=== PATIENT | female | born 1935 | race Caucasian/White ===

== ENCOUNTER 2017-12-22 10:18 | Emergency (ER) | payer OTHER, MEDICARE ==
[2017-12-22] MEDS ORDERED: TRAMADOL HCL 50 MG TAB ONE (11:20)
--- NOTE | 2017-12-22 12:40 | RAD REPORT ---
EXAM DESCRIPTION: RAD - Knee Right 3 View - 12/22/2017 12:12 pm CLINICAL HISTORY: Knee pain and swelling. COMPARISON: None. FINDINGS: Total knee arthroplasty is noted. No fracture seen. No joint effusion suspected. IMPRESSION: No acute findings seen.
--- NOTE | 2017-12-22 12:50 | ER ---
Nurse's Notes [facility] Name: Traci Bennett Age: 82 yrs Sex: Female : 1935 Arrival Date: 12/22/2017 Time: 10:21 Bed 8 Private MD: Diagnosis: Pain in right knee Presentation: 12/22 10:17 Presenting complaint: EMS states: right knee pain. Pt states "it just feels funny like sv its pulling or drawing." BP 148/83 HR 89. Transition of care: patient was not received from another setting of care. Onset of symptoms was December 13, 2017. 10:17 Method Of Arrival: EMS: [facility] sv 10:17 Acuity: PRICILA 4 sv 10:18 Initial Sepsis Screen: Does the patient meet any 2 criteria? No. Patient's initial sv sepsis screen is negative. Does the patient have a suspected source of infection? No. Patient's initial sepsis screen is negative. Care prior to arrival: Glucose check: 148. Triage Assessment: 10:20 General: Appears in no apparent distress. comfortable, Behavior is calm, cooperative, sv appropriate for age. Pain: Denies pain. EENT: No signs and/or symptoms were reported regarding the EENT system. Neuro: Level of Consciousness is awake, alert, obeys commands, Oriented to person, place, time, situation, Moves all extremities. Full function. Cardiovascular: Patient's skin is warm and dry. Respiratory: Respiratory effort is even, unlabored, Respiratory pattern is regular, symmetrical. Derm: Skin is pink, warm \\T\\ dry. Musculoskeletal: Range of motion: intact in all extremities. Historical: - Allergies: 10:27 Iodine; sv 10:27 Lamisil; sv - Home Meds: 10:27 [place] Thyroid 60 mg Oral tab [Active]; omeprazole 20 mg Oral cpDR 1 cap once daily sv [Active]; Novolin N 100 unit/mL Sub-Q susp 20 units before breakfast and 10 units before supper [Active]; metformin 500 mg Oral tab 1 tab 2 times per day [Active]; amlodipine 2.5 mg tab 1 tab once daily [Active]; carvedilol 12.5 mg Oral tab 1 tab 2 times per day [Active]; gabapentin 300 mg Oral cap twice a day [Active]; Novolin R Sub-Q 5 units before breakfast and 10 units before supper [Active]; pravastatin 20 mg Oral tab 1 tab once daily [Active]; losartan 100 mg Oral tab 1 tab once daily [Active]; Magnesium Oxide Oral [Active]; Osteo Bi-Flex oral oral [Active]; tumeric [Active]; B-12 [Active]; lutein oral oral [Active]; D-3 [Active]; Zyrtec Oral [Active]; Probiotic oral oral [Active]; Meclizine Oral [Active]; - PMHx: 10:27 Diabetes - IDDM; GERD; High Cholesterol; Hypertension; Hypothyroidism; ovarian cancer; sv - PSHx: 10:27 Left knee replacement; Hysterectomy; Appendectomy; Cholecystectomy; Cancerous Polyp; sv 10:29 Tonsillectomy; Adenoids; prolapsed bladder repair; sv - Immunization history:: Adult Immunizations up to date. - Social history:: Smoking status: Patient/guardian denies using tobacco, Patient/guardian denies using alcohol. - Ebola Screening: : Patient negative for fever greater than or equal to 101.5 degrees Fahrenheit, and additional compatible Ebola Virus Disease symptoms Patient denies exposure to infectious person Patient denies travel to an Ebola-affected area in the 21 days before illness onset No symptoms or risks identified at this time. Screenin:30 Abuse screen: Denies threats or abuse. Denies injuries from another. Nutritional sv screening: No deficits noted. Tuberculosis screening: No symptoms or risk factors identified. Fall Risk None identified. Assessment: 10:30 Reassessment: See triage assessment. sv 12:00 Reassessment: Patient appears in no apparent distress at this time. No changes from sv previously documented assessment. Patient and/or family updated on plan of care and expected duration. Pain level reassessed. Patient is alert, oriented x 3, equal unlabored respirations, skin warm/dry/pink. 13:05 Reassessment: Patient appears in no apparent distress at this time. Patient and/or sv family updated on plan of care and expected duration. Pain level reassessed. Patient is alert, oriented x 3, equal unlabored respirations, skin warm/dry/pink. Pt ambulated to bathroom with myself, no difficulties noted. Patient states feeling better. 13:20 Reassessment: Pt calling for her ride home at this time. sv Vital Signs: 10:29 BP 162 / 96; Pulse 78; Resp 18; Temp 98.7(TE); Pulse Ox 96% on R/A; Weight 68.04 kg sv (R); Height 5 ft. 7 in. (170.18 cm) (R); Pain 0/10; 11:58 BP 192 / 68; Pulse 64; Resp 18; Pulse Ox 99% ; sv 12:25 BP 186 / 88; Pulse 65; Resp 18; Pulse Ox 100% ; sv 13:20 BP 186 / 65; Pulse 66; Resp 18; Pulse Ox 99% ; sv 10:29 Body Mass Index 23.49 (68.04 kg, 170.18 cm) sv ED Course: 10:21 Patient arrived in ED. sv 10:21 Cari Allen RN is Primary Nurse. sv 10:23 Triage completed. sv 10:30 Arm band placed on right wrist. sv 10:30 Patient has correct armband on for positive identification. Bed in low position. Call sv light in reach. Side rails up X2. Pulse ox on. NIBP on. Door closed. Head of bed elevated. 10:33 Jean Marie Terrazas NP is PHCP. pm1 10:33 Anderson Collins MD is Attending Physician. pm1 11:43 Knee Right 3 View XRAY In Process Unspecified. EDMS 11:44 X-ray completed. Portable x-ray completed in exam room. Patient tolerated procedure kp1 well. 12:00 Awaiting radiology results. Awaiting re-evaluation by ER provider. sv 12:49 Frankie Garcia MD is Referral Physician. pm1 13:19 No provider procedures requiring assistance completed. Patient did not have IV access sv during this emergency room visit. Administered Medications: 11:57 Drug: traMADol 50 mg Route: PO; sv 12:30 Follow up: Response: No adverse reaction sv Outcome: 12:50 Discharge ordered by . pm1 13:19 Discharged to home via wheelchair, with family. sv 13:19 Condition: stable 13:19 Discharge instructions given to patient, Instructed on discharge instructions, follow up and referral plans. no drinking with medication, no driving heavy equipment, medication usage, Demonstrated understanding of instructions, follow-up care, medications, Prescriptions given X 1. 13:24 Patient left the ED. sv Signatures: Dispatcher [employer] EDAK Cari Allen RN RN Jean Marie Terrazas NP CAGE TENDER pm1 Ligia Damian kp1 Corrections: (The following items were deleted from the chart) 10:17 Presenting complaint: EMS states: right knee pain. Pt states "it just feels funny sv like its pulling or drawing." sv 10:18 Care prior to arrival: None. sv sv
--- NOTE | 2017-12-22 12:51 | EDPHYS ---
Physician Documentation [facility] Name: Traci Bennett Age: 82 yrs Sex: Female : 1935 Arrival Date: 12/22/2017 Time: 10:21 Bed 8 Private MD: ED Physician Anderson Collisn HPI: 12/22 12:00 This 82 yrs old Female presents to ER via EMS with complaints of Knee Pain. pm1 12:00 The patient presents with pain. The complaints affect the right knee. Context: The pm1 problem was sustained at home, resulted from an unknown cause, the patient can fully bear weight, the patient is able to ambulate, Problem is a result from a previous injury: prior right knee replacement in 2000. No trauma. Onset: The symptoms/episode began/occurred Worse today but chronic pain treated with tylenol. Modifying factors: The symptoms are alleviated by OTC meds, the symptoms are aggravated by weight bearing. Associated signs and symptoms: Pertinent negatives fever, nausea, vomiting. Severity of symptoms: in the emergency department the symptoms have improved. The patient has experienced similar episodes in the past, chronically. Historical: - Allergies: 10: Iodine; sv 10:27 Lamisil; sv - Home Meds: 10:27 [place] Thyroid 60 mg Oral tab [Active]; omeprazole 20 mg Oral cpDR 1 cap once daily sv [Active]; Novolin N 100 unit/mL Sub-Q susp 20 units before breakfast and 10 units before supper [Active]; metformin 500 mg Oral tab 1 tab 2 times per day [Active]; amlodipine 2.5 mg tab 1 tab once daily [Active]; carvedilol 12.5 mg Oral tab 1 tab 2 times per day [Active]; gabapentin 300 mg Oral cap twice a day [Active]; Novolin R Sub-Q 5 units before breakfast and 10 units before supper [Active]; pravastatin 20 mg Oral tab 1 tab once daily [Active]; losartan 100 mg Oral tab 1 tab once daily [Active]; Magnesium Oxide Oral [Active]; Osteo Bi-Flex oral oral [Active]; tumeric [Active]; B-12 [Active]; lutein oral oral [Active]; D-3 [Active]; Zyrtec Oral [Active]; Probiotic oral oral [Active]; Meclizine Oral [Active]; - PMHx: 10:27 Diabetes - IDDM; GERD; High Cholesterol; Hypertension; Hypothyroidism; ovarian cancer; sv - PSHx: 10:27 Left knee replacement; Hysterectomy; Appendectomy; Cholecystectomy; Cancerous Polyp; sv 10:29 Tonsillectomy; Adenoids; prolapsed bladder repair; sv - Immunization history:: Adult Immunizations up to date. - Social history:: Smoking status: Patient/guardian denies using tobacco, Patient/guardian denies using alcohol. - Ebola Screening: : Patient negative for fever greater than or equal to 101.5 degrees Fahrenheit, and additional compatible Ebola Virus Disease symptoms Patient denies exposure to infectious person Patient denies travel to an Ebola-affected area in the 21 days before illness onset No symptoms or risks identified at this time. ROS: 12:00 Constitutional: Negative for fever, chills, and weight loss, Eyes: Negative for injury, pm1 pain, redness, and discharge, ENT: Negative for injury, pain, and discharge, Neck: Negative for injury, pain, and swelling, Cardiovascular: Negative for chest pain, palpitations, and edema, Respiratory: Negative for shortness of breath, cough, wheezing, and pleuritic chest pain, Abdomen/GI: Negative for abdominal pain, nausea, vomiting, diarrhea, and constipation, Back: Negative for injury and pain. 12:00 Skin: Negative for injury, rash, and discoloration, Neuro: Negative for headache, weakness, numbness, tingling, and seizure. 12:00 MS/extremity: Positive for pain, of the right knee, Negative for decreased range of motion, deformity. Exam: 12:00 Constitutional: This is a well developed, well nourished patient who is awake, alert, pm1 and in no acute distress. Head/Face: Normocephalic, atraumatic. Eyes: Pupils equal round and reactive to light, extra-ocular motions intact. Lids and lashes normal. Conjunctiva and sclera are non-icteric and not injected. Cornea within normal limits. Periorbital areas with no swelling, redness, or edema. ENT: Nares patent. No nasal discharge, no septal abnormalities noted. Tympanic membranes are normal and external auditory canals are clear. Oropharynx with no redness, swelling, or masses, exudates, or evidence of obstruction, uvula midline. Mucous membranes moist. Neck: Trachea midline, no thyromegaly or masses palpated, and no cervical lymphadenopathy. Supple, full range of motion without nuchal rigidity, or vertebral point tenderness. No Meningismus. Chest/axilla: Normal chest wall appearance and motion. Nontender with no deformity. No lesions are appreciated. Cardiovascular: Regular rate and rhythm with a normal S1 and S2. No gallops, murmurs, or rubs. Normal PMI, no JVD. No pulse deficits. Respiratory: Lungs have equal breath sounds bilaterally, clear to auscultation and percussion. No rales, rhonchi or wheezes noted. No increased work of breathing, no retractions or nasal flaring. Abdomen/GI: Soft, non-tender, with normal bowel sounds. No distension or tympany. No guarding or rebound. No evidence of tenderness throughout. Back: No spinal tenderness. No costovertebral tenderness. Full range of motion. Skin: Warm, dry with normal turgor. Normal color with no rashes, no lesions, and no evidence of cellulitis. 12:00 Musculoskeletal/extremity: Extremities: grossly normal except: noted in the right knee: pain, ROM: full active range of motion, in the right knee, full passive range of motion, in the right knee, Circulation is intact in all extremities. Sensation intact. Vital Signs: 10:29 BP 162 / 96; Pulse 78; Resp 18; Temp 98.7(TE); Pulse Ox 96% on R/A; Weight 68.04 kg sv (R); Height 5 ft. 7 in. (170.18 cm) (R); Pain 0/10; 11:58 BP 192 / 68; Pulse 64; Resp 18; Pulse Ox 99% ; sv 12:25 BP 186 / 88; Pulse 65; Resp 18; Pulse Ox 100% ; sv 13:20 BP 186 / 65; Pulse 66; Resp 18; Pulse Ox 99% ; sv 10:29 Body Mass Index 23.49 (68.04 kg, 170.18 cm) sv MDM: 10:35 Patient medically screened. pm1 12:49 Data reviewed: vital signs. Data interpreted: Pulse oximetry: on room air is 100 %. pm1 Interpretation: normal. Counseling: I had a detailed discussion with the patient and/or guardian regarding: the historical points, exam findings, and any diagnostic results supporting the discharge/admit diagnosis, the need for outpatient follow up, for definitive care, a orthopedic surgeon, to return to the emergency department if symptoms worsen or persist or if there are any questions or concerns that arise at home. 12/22 11:10 Order name: Knee Right 3 View XRAY; Complete Time: 12:49 pm1 Administered Medications: 11:57 Drug: traMADol 50 mg Route: PO; sv 12:30 Follow up: Response: No adverse reaction sv Disposition: 12/23 09:24 Co-signature as Attending Physician, Anderson Collins MD I agree with the assessment and monika plan of care. Disposition: 12/22/17 12:50 Discharged to Home. Impression: Pain in right knee. - Condition is Stable. - Discharge Instructions: Arthralgia, Knee Pain. - Prescriptions for Tramadol 50 mg Oral Tablet - take 1 tablet by ORAL route every 8 hours as needed; 12 tablet. - Medication Reconciliation Form, Thank You Letter, Prescription Opioid Use form. - Follow up: Emergency Department; When: As needed; Reason: Worsening of condition. Follow up: Frankie Garcia MD; When: 2 - 3 days; Reason: Recheck today's complaints, Continuance of care, Re-evaluation by your physician. - Problem is new. - Symptoms have improved. Signatures: Dispatcher [employer] Cari Mcnamara, Anderson Dubose RN, MD MD cha Marinas, Patrick, CLINICAL SUPPORT NURSE CLINICAL SUPPORT NURSE pm1
[2017-12-22 13:29] VITALS: TEMP 98.7
[2017-12-22 13:33] VITALS: BP 186/65; O2SAT 99
== END 2017-12-22 13:24 | disposition home or self-care (01) ==
LOC: ER 10:18
DX: M25.561 Pain in right knee (principal); E11.9 Type 2 diabetes mellitus without complications; K21.9 Gastro-esophageal reflux disease without esophagitis; E03.9 Hypothyroidism, unspecified
CPT/HCPCS: 99284

== ENCOUNTER 2017-12-27 09:24 | Emergency (ER) | payer OTHER, MEDICARE ==
[2017-12-27] MEDS ORDERED: D50W 25 GM/50 ML SYRINGE IV ONE (09:39)
--- NOTE | 2017-12-27 10:43 | ER ---
Nurse's Notes [facility] Name: Traci Bennett Age: 82 yrs Sex: Female : 1935 Arrival Date: 12/27/2017 Time: 09:25 Bed 7 Private MD: Marcello Mo V Diagnosis: Hypoglycemia, unspecified Presentation: 12/27 09:31 Presenting complaint: EMS states: pt was found at the intersection [address], pt was confused, FSBG was 49 on the scene, attempted two IV starts, had to administer 24 grams of PO glucose per EMS a repeat FSBG 71, VSS per EMS. Transition of care: patient was not received from another setting of care. Onset of symptoms was December 27, 2017. Initial Sepsis Screen: Does the patient meet any 2 criteria? No. Patient's initial sepsis screen is negative. Does the patient have a suspected source of infection? No. Patient's initial sepsis screen is negative. Care prior to arrival: Medication(s) given: 24 gm Oral Glucose. 09:31 Method Of Arrival: EMS: [facility] 09:31 Acuity: PRICILA 3 sg Historical: - Allergies: 09:27 Iodine; sg 09:27 Lamisil; sg - Home Meds: 09:35 carvedilol 12.5 mg Oral tab 1 tab 2 times per day [Active]; Novolin N 100 unit/mL Sub-Q ae1 susp 20 units before breakfast and 10 units before supper [Active]; 10:17 amlodipine 2.5 mg tab 1 tab once daily [Active]; [place] Thyroid 60 mg Oral tab ae1 [Active]; B-12 [Active]; D-3 [Active]; gabapentin 300 mg Oral cap twice a day [Active]; losartan 100 mg Oral tab 1 tab once daily [Active]; lutein Oral [Active]; Magnesium Oxide Oral [Active]; Meclizine Oral [Active]; metformin 500 mg Oral tab 1 tab 2 times per day [Active]; Novolin R Sub-Q 5 units before breakfast and 10 units before supper [Active]; omeprazole 20 mg Oral cpDR 1 cap once daily [Active]; Osteo Bi-Flex Oral [Active]; pravastatin 20 mg Oral tab 1 tab once daily [Active]; Probiotic Oral [Active]; tumeric [Active]; Zyrtec Oral [Active]; - PMHx: 09:27 Diabetes - IDDM; GERD; High Cholesterol; Hypertension; Hypothyroidism; ovarian cancer; sg - PSHx: 09:27 Left knee replacement; Hysterectomy; Appendectomy; Cholecystectomy; Cancerous Polyp; sg Tonsillectomy; Adenoids; prolapsed bladder repair; - Immunization history:: Adult Immunizations up to date. - Social history:: Smoking status: Patient/guardian denies using tobacco. Screenin:35 Abuse screen: Denies threats or abuse. Nutritional screening: No deficits noted. ae1 Tuberculosis screening: No symptoms or risk factors identified. Assessment: 09:31 General: Appears in no apparent distress. comfortable, well groomed, Behavior is ae1 cooperative, drowsy, quiet. Pain: Denies pain. Neuro: Level of Consciousness is awake, obeys commands, lethargic, Oriented to person, place, situation. Cardiovascular: Patient's skin is warm and dry. Respiratory: Airway is patent Respiratory effort is even, unlabored, Respiratory pattern is regular, symmetrical, Breath sounds are clear bilaterally. GI: No signs and/or symptoms were reported involving the gastrointestinal system. : No signs and/or symptoms were reported regarding the genitourinary system. EENT: No signs and/or symptoms were reported regarding the EENT system. wears glasses. . Derm: Skin is pale. Musculoskeletal: No signs and/or symptoms reported regarding the musculoskeletal system. 09:38 Reassessment: FSBG of 50, orders received to administer 1/2 amp of D50, a tray has been sg ordered. 10:43 Reassessment: Patient appears in no apparent distress at this time. No changes from la1 previously documented assessment. Patient and/or family updated on plan of care and expected duration. Pain level reassessed. Patient is alert, oriented x 3, equal unlabored respirations, skin warm/dry/pink. Patient states feeling better. Vital Signs: 09:28 BP 124 / 52; Pulse 67 MON; Resp 19 S; Pulse Ox 95% on R/A; Pain 0/10; sg 09:30 Weight 68.04 kg (R); Height 5 ft. 7 in. (170.18 cm) (R); sg 09:45 Temp 97.8(O); ae1 10:43 BP 128 / 53; Pulse 71; Resp 19; Pulse Ox 100% on R/A; la1 09:30 Body Mass Index 23.49 (68.04 kg, 170.18 cm) ED Course: 09:25 Patient arrived in ED. sg 09:25 Marcello Mo MD is Private Physician. sg 09:27 Dat Argueta PA is PHCP. jr8 09:27 Arsenio Alcantar MD is Attending Physician. jr8 09:29 Arm band placed on. sg 09:31 Uri Mantilla, RN is Primary Nurse. ae1 09:33 Triage completed. sg 09:34 Bed in low position. Call light in reach. Side rails up X2. black top machine operator on. Pulse ae1 ox on. NIBP on. Warm blanket given. 09:55 Initial lab(s) drawn, by me. Inserted saline lock: 22 gauge in right antecubital area, jb1 using aseptic technique. Blood collected. 10:42 Marcello Mo MD is Referral Physician. jr8 11:02 No provider procedures requiring assistance completed. IV discontinued, intact, la1 bleeding controlled, No redness/swelling at site. Pressure dressing applied. Administered Medications: 09:40 Drug: D50W 25 ml Route: IVP; Site: right antecubital; ae1 10:43 Follow up: Response: Blood sugar is elevated la1 Point of Care Testing: Blood Glucose: 10:42 Blood Glucose: 160 mg/dL; la1 Ranges: Outcome: 10:42 Discharge ordered by . jr8 11:03 Discharged to home via wheelchair. la1 11:03 Condition: stable 11:03 Discharge instructions given to patient, Instructed on discharge instructions, follow up and referral plans. medication usage, Demonstrated understanding of instructions, follow-up care. 11:13 Patient left the ED. la1 Signatures: Otis Mcadams jb1 Romain Mcneil RN RN Dat Argueta PA PA jr8 Rajeev Andrade RN RN la1 Uri Mantilla, RAUL RN ae1
--- NOTE | 2017-12-27 10:43 | EDPHYS ---
Physician Documentation [facility] Name: Traci Bennett Age: 82 yrs Sex: Female : 1935 Arrival Date: 12/27/2017 Time: 09:25 Bed 7 Private MD: Marcello Mo V ED Physician Arsenio Alcantar HPI: 12/27 09:45 This 82 yrs old Female presents to ER via EMS with complaints of Low Blood jr8 Sugar. 09:45 The patient presents with decreased mental status, disorientation. Onset: The jr8 symptoms/episode began/occurred acutely, today. Possible causes: low blood sugar, the patient uses insulin. Associated signs and symptoms: The patient has no apparent associated signs or symptoms. Current symptoms: In the emergency department the patient's symptoms have improved, moderately. Patient's baseline: Neuro: alert and fully oriented, Motor: no deficits, Ambulation: walks without assistance, Speech: normal. It is unknown whether or not the patient has had similar symptoms in the past. The patient has not recently seen a physician. Patient stated that she had to have MRI this morning and had to fast. After MRI was feeling fatigued like her sugar was low. Was trying to make it home but couldn't. [place]. Administered oral glucose and was brought to ED. Historical: - Allergies: 09: Iodine; sg 09:27 Lamisil; sg - Home Meds: 09:35 carvedilol 12.5 mg Oral tab 1 tab 2 times per day [Active]; Novolin N 100 unit/mL Sub-Q ae1 susp 20 units before breakfast and 10 units before supper [Active]; 10:17 amlodipine 2.5 mg tab 1 tab once daily [Active]; [place] Thyroid 60 mg Oral tab ae1 [Active]; B-12 [Active]; D-3 [Active]; gabapentin 300 mg Oral cap twice a day [Active]; losartan 100 mg Oral tab 1 tab once daily [Active]; lutein Oral [Active]; Magnesium Oxide Oral [Active]; Meclizine Oral [Active]; metformin 500 mg Oral tab 1 tab 2 times per day [Active]; Novolin R Sub-Q 5 units before breakfast and 10 units before supper [Active]; omeprazole 20 mg Oral cpDR 1 cap once daily [Active]; Osteo Bi-Flex Oral [Active]; pravastatin 20 mg Oral tab 1 tab once daily [Active]; Probiotic Oral [Active]; tumeric [Active]; Zyrtec Oral [Active]; - PMHx: 09:27 Diabetes - IDDM; GERD; High Cholesterol; Hypertension; Hypothyroidism; ovarian cancer; sg - PSHx: 09:27 Left knee replacement; Hysterectomy; Appendectomy; Cholecystectomy; Cancerous Polyp; sg Tonsillectomy; Adenoids; prolapsed bladder repair; - Immunization history:: Adult Immunizations up to date. - Social history:: Smoking status: Patient/guardian denies using tobacco. ROS: 09:45 Eyes: Negative for injury, pain, redness, and discharge, ENT: Negative for injury, jr8 pain, and discharge, Neck: Negative for injury, pain, and swelling, Cardiovascular: Negative for chest pain, palpitations, and edema, Respiratory: Negative for shortness of breath, cough, wheezing, and pleuritic chest pain, Abdomen/GI: Negative for abdominal pain, nausea, vomiting, diarrhea, and constipation, Back: Negative for injury and pain, MS/Extremity: Negative for injury and deformity, Skin: Negative for injury, rash, and discoloration. 09:45 Neuro: Positive for altered mental status. Exam: 09:45 Head/Face: Normocephalic, atraumatic. Eyes: Pupils equal round and reactive to light, jr8 extra-ocular motions intact. Lids and lashes normal. Conjunctiva and sclera are non-icteric and not injected. Cornea within normal limits. Periorbital areas with no swelling, redness, or edema. ENT: Nares patent. No nasal discharge, no septal abnormalities noted. Tympanic membranes are normal and external auditory canals are clear. Oropharynx with no redness, swelling, or masses, exudates, or evidence of obstruction, uvula midline. Mucous membranes moist. Neck: Trachea midline, no thyromegaly or masses palpated, and no cervical lymphadenopathy. Supple, full range of motion without nuchal rigidity, or vertebral point tenderness. No Meningismus. Chest/axilla: Normal chest wall appearance and motion. Nontender with no deformity. No lesions are appreciated. Cardiovascular: Regular rate and rhythm with a normal S1 and S2. No gallops, murmurs, or rubs. Normal PMI, no JVD. No pulse deficits. Respiratory: Lungs have equal breath sounds bilaterally, clear to auscultation and percussion. No rales, rhonchi or wheezes noted. No increased work of breathing, no retractions or nasal flaring. Abdomen/GI: Soft, non-tender, with normal bowel sounds. No distension or tympany. No guarding or rebound. No evidence of tenderness throughout. Back: No spinal tenderness. No costovertebral tenderness. Full range of motion. Skin: Warm, dry with normal turgor. Normal color with no rashes, no lesions, and no evidence of cellulitis. MS/ Extremity: Pulses equal, no cyanosis. Neurovascular intact. Full, normal range of motion. Neuro: Awake and alert, GCS 15, oriented to person, place, time, and situation. Cranial nerves II-XII grossly intact. Motor strength 5/5 in all extremities. Sensory grossly intact. Cerebellar exam normal. Normal gait. Vital Signs: 09:28 BP 124 / 52; Pulse 67 MON; Resp 19 S; Pulse Ox 95% on R/A; Pain 0/10; sg 09:30 Weight 68.04 kg (R); Height 5 ft. 7 in. (170.18 cm) (R); sg 09:45 Temp 97.8(O); ae1 10:43 BP 128 / 53; Pulse 71; Resp 19; Pulse Ox 100% on R/A; la1 09:30 Body Mass Index 23.49 (68.04 kg, 170.18 cm) sg MDM: 09:27 Patient medically screened. [facility] 10:42 Data reviewed: vital signs, nurses notes, and as a result, I will discharge patient. [facility] Data interpreted: Pulse oximetry: on room air is 95 %. Interpretation: normal. Counseling: I had a detailed discussion with the patient and/or guardian regarding: the historical points, exam findings, and any diagnostic results supporting the discharge/admit diagnosis, the need for outpatient follow up, a family practitioner, to return to the emergency department if symptoms worsen or persist or if there are any questions or concerns that arise at home. Response to treatment: the patient's symptoms have resolved after treatment. 12/27 09:41 Order name: Diet Regular; Complete Time: :41 sg Administered Medications: 09:40 Drug: D50W 25 ml Route: IVP; Site: right antecubital; ae1 10:43 Follow up: Response: Blood sugar is elevated la1 Point of Care Testing: Blood Glucose: 10:42 Blood Glucose: 160 mg/dL; la1 Ranges: Critical Glucose Levels:Adult <50 mg/dl or >400 mg/dl <40 mg/dl or >180 mg/dl Disposition: 17:20 Co-signature as Attending Physician, Arsenio Alcantar MD I agree with the assessment and kdr plan of care. Disposition: 12/27/17 10:42 Discharged to Home. Impression: Hypoglycemia, unspecified. - Condition is Stable. - Discharge Instructions: Hypoglycemia, Blood Glucose Monitoring, Adult. - Medication Reconciliation Form, Thank You Letter, Antibiotic Education, Prescription Opioid Use form. - Follow up: Marcello Mo MD; When: 2 - 3 days; Reason: Recheck today's complaints, Continuance of care, Re-evaluation by your physician. - Problem is new. - Symptoms are resolved. Signatures: Romain Mcneil RN RAUL Arsenio Alcantar MD MD [facility] Dat Argueta PA PA jr8 Rajeev Andrade RN RN la1 Uri Mantilla RN RN ae1
[2017-12-27 11:19] VITALS: TEMP 97.8
[2017-12-27 11:20] VITALS: BP 128/53; O2SAT 100
[2017-12-27] MEDS ORDERED: ONDANSETRON 4 MG/2 ML VIAL ONE (13:11)
== END 2017-12-27 11:13 | disposition home or self-care (01) ==
LOC: ER 09:24
DX: E16.2 Hypoglycemia, unspecified (principal); Z91.09 Other allergy status, other than to drugs and biological substances; E11.9 Type 2 diabetes mellitus without complications; K21.9 Gastro-esophageal reflux disease without esophagitis; E78.5 Hyperlipidemia, unspecified; I10 Essential (primary) hypertension; E03.9 Hypothyroidism, unspecified
CPT/HCPCS: 82962 ×2; 96374; 99284; J2405

== ENCOUNTER 2018-07-23 10:17 | Emergency (ER) | payer OTHER, MEDICARE ==
--- NOTE | 2018-07-23 10:55 | RAD REPORT ---
EXAM DESCRIPTION: CT - CTHCSPWOC - 07/23/2018 10:42 am CLINICAL HISTORY: Trauma, head and neck injury. dizziness Syncope, fall COMPARISON: No comparisons TECHNIQUE: Axial 5 mm thick images of the head were obtained. Axial 2 mm thick images of the cervical spine were obtained with sagittal and coronal reconstruction images generated and reviewed. All CT scans are performed using dose optimization technique as appropriate and may include automated exposure control or mA/KV adjustment according to patient size. FINDINGS: CT HEAD WITHOUT CONTRAST: No acute hemorrhage, hydrocephalus or extra-axial collection is identified.Advance generalized brain atrophy is present with advanced periventricular and deep white matter chronic microvascular ischemic changes.No areas of brain edema or midline shift. The paranasal sinuses and mastoids are clear.The calvarium is intact. CT CERVICAL SPINE WITHOUT CONTRAST: No fracture or subluxation.Mild spondylosis is seen.No prevertebral soft tissues swelling is identifi ed. Heavy carotid atherosclerosis. IMPRESSION: No acute intracranial or cervical spine findings. Heavy atherosclerosis.
[2018-07-23 11:11] LABS: Absolute Lymphocytes (CBC) 1.2 K/uL (0.7-4.9); Absolute Monocytes 0.6 K/uL (0.1-1.3); Absolute Neutrophil 3.8 K/uL (1.8-8.0); Basophils % 0.9 % (0-1.3); Eosinophils % 2.8 % (0-4.4); Hematocrit 42.4 % (36.0-45.0); Lymphocytes % 20.3 % (15.3-44.8); MCH 28.6 pg (27.0-35.0); MCV 85.8 fL (80-100); MPV 9.9 fL (7.6-11.3); Monocytes % 9.9 % (3.3-12.3); RBC Red Blood Cell Count 4.95 M/uL (3.86-4.86)
[2018-07-23 11:18] LABS: Protime INR 1.03
--- NOTE | 2018-07-23 11:24 | RAD REPORT ---
EXAM DESCRIPTION: RAD - Chest Single View - 07/23/2018 11:09 am CLINICAL HISTORY: MALAISE Chest pain. COMPARISON: Chest Pa And Lat (2 Views) dated 08/29/2017; Chest Single View dated 12/14/2016; Chest Pa And Lat (2 Views) dated 11/16/2016; CHEST SINGLE VIEW dated 09/20/2013 FINDINGS: Portable technique limits examination quality. The lungs are grossly clear. The heart is normal in size. No displaced fractures. IMPRESSION: No acute intrathoracic process suspected.
[2018-07-23 12:02] LABS: Albumin 3.1 g/dL (3.4-5.0); Bilirubin Direct 0.2 mg/dL (0-0.2); Bilirubin Total 0.7 mg/dL (0.2-1.0); Magnesium 1.7 mg/dL (1.8-2.4); Potassium 3.5 mmol/L (3.5-5.1); Protein, Total 6.5 g/dL (6.4-8.2); Troponin (Emerg Dept Use Only) 0.02 ng/mL (0.0-0.045)
[2018-07-23] MEDS ORDERED: cloNIDine HCl 0.1 MG TAB ONE (12:14)
[2018-07-23] MEDS ORDERED: MAGNESIUM OXIDE 400 MG TAB ONE (12:14)
--- NOTE | 2018-07-23 12:32 | EDPHYS ---
Physician Documentation [facility] Name: Traci Bennett Age: 83 yrs Sex: Female : 1935 Arrival Date: 07/23/2018 Time: 10:23 Bed 18 Private MD: ED Physician Anderson Collins HPI: 07/23 10:52 This 83 yrs old Female presents to ER via EMS with complaints of Dizziness. snw 10:52 The patient presents with feeling off balance. snw 10:54 Details of fall: The patient fell from an upright position, while standing. Onset: The snw symptoms/episode began/occurred suddenly, just prior to arrival. Associated injuries: The patient sustained no obvious injury. Severity of symptoms: At their worst the symptoms were mild. It is unknown whether or not the patient has had similar symptoms in the past. It is unknown whether or not the patient has recently seen a physician. pt states she got tangled in her pajama bottoms and fell onto bed and then to floor. Historical: - Allergies: 10: Iodine; sv 10: Lamisil; sv - Home Meds: 10: amlodipine 2.5 mg tab 1 tab once daily [Active]; [place] Thyroid 60 mg Oral tab sv [Active]; B-12 [Active]; D-3 [Active]; carvedilol 12.5 mg Oral tab 1 tab 2 times per day [Active]; gabapentin 300 mg Oral cap twice a day [Active]; losartan 100 mg Oral tab 1 tab once daily [Active]; lutein Oral [Active]; Magnesium Oxide Oral [Active]; Meclizine Oral [Active]; metformin 500 mg Oral tab 1 tab 2 times per day [Active]; Novolin N 100 unit/mL Sub-Q susp 20 units before breakfast and 10 units before supper [Active]; Novolin R Sub-Q 5 units before breakfast and 10 units before supper [Active]; omeprazole 20 mg Oral cpDR 1 cap once daily [Active]; Osteo Bi-Flex Oral [Active]; pravastatin 20 mg Oral tab 1 tab once daily [Active]; Probiotic Oral [Active]; tumeric [Active]; Zyrtec Oral [Active]; - PMHx: 10:29 Diabetes - IDDM; GERD; High Cholesterol; Hypertension; Hypothyroidism; ovarian cancer; sv - PSHx: 10:29 Left knee replacement; Hysterectomy; Appendectomy; Cholecystectomy; Tonsillectomy; sv Adenoids; Cancerous Polyp; prolapsed bladder repair; - Immunization history:: Flu vaccine is up to date. - Social history:: Smoking status: Patient/guardian denies using tobacco. - Ebola Screening: : No symptoms or risks identified at this time. ROS: 10:52 Constitutional: Negative for fever, chills, and weight loss, Eyes: Negative for injury, snw pain, redness, and discharge, ENT: Negative for injury, pain, and discharge, Neck: Negative for injury, pain, and swelling, Cardiovascular: Negative for chest pain, palpitations, and edema, Respiratory: Negative for shortness of breath, cough, wheezing, and pleuritic chest pain, Abdomen/GI: Negative for abdominal pain, nausea, vomiting, diarrhea, and constipation, Back: Negative for injury and pain, : Negative for injury, bleeding, discharge, and swelling, MS/Extremity: Negative for injury and deformity, Skin: Negative for injury, rash, and discoloration, Psych: Negative for depression, anxiety, suicide ideation, homicidal ideation, and hallucinations. 10:52 Neuro: Positive for pt states she was standing at the foot of her bed and got tangled in her pajama bottoms and fell back onto the bed. She then slipped off the bed onto the floor. Denies hitting head or LOC, vomiting, pain. Exam: 10:52 Constitutional: This is a well developed, well nourished patient who is awake, alert, snw and in no acute distress. Head/Face: Normocephalic, atraumatic. Eyes: Pupils equal round and reactive to light, extra-ocular motions intact. Lids and lashes normal. Conjunctiva and sclera are non-icteric and not injected. Cornea within normal limits. Periorbital areas with no swelling, redness, or edema. ENT: Nares patent. No nasal discharge, no septal abnormalities noted. Tympanic membranes are normal and external auditory canals are clear. Oropharynx with no redness, swelling, or masses, exudates, or evidence of obstruction, uvula midline. Mucous membranes moist. Neck: Trachea midline, no thyromegaly or masses palpated, and no cervical lymphadenopathy. Supple, full range of motion without nuchal rigidity, or vertebral point tenderness. No Meningismus. Chest/axilla: Normal chest wall appearance and motion. Nontender with no deformity. No lesions are appreciated. Cardiovascular: Regular rate and rhythm with a normal S1 and S2. No gallops, murmurs, or rubs. Normal PMI, no JVD. No pulse deficits. Respiratory: Lungs have equal breath sounds bilaterally, clear to auscultation and percussion. No rales, rhonchi or wheezes noted. No increased work of breathing, no retractions or nasal flaring. Abdomen/GI: Soft, non-tender, with normal bowel sounds. No distension or tympany. No guarding or rebound. No evidence of tenderness throughout. Back: No spinal tenderness. No costovertebral tenderness. Full range of motion. Skin: Warm, dry with normal turgor. Normal color with no rashes, no lesions, and no evidence of cellulitis. MS/ Extremity: Pulses equal, no cyanosis. Neurovascular intact. Full, normal range of motion. Neuro: Awake and alert, GCS 15, oriented to person, place, time, and situation. Cranial nerves II-XII grossly intact. Motor strength 5/5 in all extremities. Sensory grossly intact. Cerebellar exam normal. Normal gait. Psych: Awake, alert, with orientation to person, place and time. Behavior, mood, and affect are within normal limits. Vital Signs: 10:29 BP 177 / 83; Pulse 92; Resp 16; Temp 98.6(O); Pulse Ox 98% on R/A; Weight 68.04 kg; sv Height 5 ft. 7 in. (170.18 cm); Pain 0/10; 11:30 BP 204 / 82; Pulse 86; Resp 16; Pulse Ox 95% ; sv 10:29 Body Mass Index 23.49 (68.04 kg, 170.18 cm) sv MDM: 10:29 Patient medically screened. snw 12:07 Data reviewed: vital signs, nurses notes. Data interpreted: Pulse oximetry: on room air snw is 95 %. Interpretation: acceptable. Counseling: I had a detailed discussion with the patient and/or guardian regarding: the historical points, exam findings, and any diagnostic results supporting the discharge/admit diagnosis, the presence of at least one elevated blood pressure reading (>120/80) during this emergency department visit, lab results, radiology results, the need for outpatient follow up, to return to the emergency department if symptoms worsen or persist or if there are any questions or concerns that arise at home. Special discussion: I have referred the patient to see his PCP for further evaluation of high blood pressure. Based on the patient's history, exam and DX evaluation, there is no indication for emergent intervention or inpatient TX. It is understood by the patient/guardian that if the SXs persist or worsen they need to return immediately for re-evaluation. Based on the history and exam findings, there is no indication for further emergent testing or inpatient evaluation. I discussed with the patient/guardian the need to see the primary care provider for further evaluation of the symptoms. 07/23 10:25 Order name: Basic Metabolic Panel; Complete Time: 12:04 snw 07/23 10:25 Order name: CBC with Diff; Complete Time: : snw 07/23 10:25 Order name: LFT's; Complete Time: 12: snw 07/23 10:25 Order name: Magnesium; Complete Time: 12: snw 07/23 10:25 Order name: NT PRO-BNP; Complete Time: 12: snw 07/23 10:25 Order name: PT-INR; Complete Time: : snw 07/23 10:25 Order name: Troponin (emerg Dept Use Only); Complete Time: 12: snw 07/23 10:26 Order name: XRAY Chest (1 view); Complete Time: 11: snw 07/23 10:26 Order name: EKG; Complete Time: 10: snw 07/23 10:26 Order name: Cardiac monitoring; Complete Time: : snw 07/23 10:26 Order name: EKG - Nurse/Tech; Complete Time: : snw 07/23 10:26 Order name: CT Head C Spine; Complete Time: 11: snw 07/23 10:26 Order name: IV Saline Lock; Complete Time: : snw 07/23 10:26 Order name: Labs collected and sent; Complete Time: : snw 07/23 10:26 Order name: O2 Per Protocol; Complete Time: 10:33 snw 07/23 10:26 Order name: O2 Sat Monitoring; Complete Time: : snw 07/23 11:16 Order name: Labs - recollect needed; Complete Time: 11:42 bd Administered Medications: 12:19 Drug: Magnesium 400 mg Route: PO; sv 12:39 Follow up: Response: No adverse reaction sv 12:19 Drug: cloNIDine 0.1 mg Route: PO; sv 12:38 Follow up: Response: No adverse reaction sv Disposition: 13:09 Co-signature as Attending Physician, Anderson Collins MD I agree with the assessment and monika plan of care. Disposition: 07/23/18 12:06 Discharged to Home. Impression: Fall on same level, unspecified. - Condition is Stable. - Discharge Instructions: Head Injury, Adult, Fall Prevention in the Home, Hypertension, Rehydration, Elderly. - Medication Reconciliation Form, Thank You Letter, Antibiotic Education, Prescription Opioid Use form. - Follow up: Private Physician; When: 2 - 3 days; Reason: Recheck today's complaints, Continuance of care, Re-evaluation by your physician. Follow up: Emergency Department; When: As needed; Reason: Worsening of condition. Signatures: Dispatcher [employer] EDAnais Bhakta Stephanie, RN RN sv Anderson, Corey, MD MD cha Therrien, Shelly, STUDENT ACTIVITIES DIRECTOR-C STUDENT ACTIVITIES DIRECTOR-Csnw Corrections: (The following items were deleted from the chart) 12:40 12:06 07/23/2018 12:06 Discharged to Home. Impression: Fall on same level, unspecified. sv Condition is Stable. Forms are Medication Reconciliation Form, Thank You Letter, Antibiotic Education, Prescription Opioid Use. Follow up: Private Physician; When: 2 - 3 days; Reason: Recheck today's complaints, Continuance of care, Re-evaluation by your physician. Follow up: Emergency Department; When: As needed; Reason: Worsening of condition. snw
--- NOTE | 2018-07-23 12:32 | ER ---
Nurse's Notes [facility] Name: Traci Bennett Age: 83 yrs Sex: Female : 1935 Arrival Date: 07/23/2018 Time: 10:23 Bed 18 Private MD: Diagnosis: Fall on same level, unspecified Presentation: 07/23 10:13 Presenting complaint: EMS states: dizziness this morning after attempting to put on her sv pants and pt slid off of the bed. Denies head injury, LOC, blurry or double vision. BP 157/76 HR-94 BS-108. Transition of care: patient was not received from another setting of care. Onset of symptoms was July 23, 2018. Risk Assessment: Do you want to hurt yourself or someone else? Patient reports no desire to harm self or others. Initial Sepsis Screen: Does the patient meet any 2 criteria? No. Patient's initial sepsis screen is negative. Does the patient have a suspected source of infection? No. Patient's initial sepsis screen is negative. Care prior to arrival: None. 10:13 Method Of Arrival: EMS: [facility] sv 10:13 Acuity: PRICILA 3 sv Triage Assessment: 10:30 General: Appears in no apparent distress. comfortable, slender, well developed, sv Behavior is calm, cooperative, appropriate for age. Pain: Denies pain. EENT: No signs and/or symptoms were reported regarding the EENT system. Neuro: Level of Consciousness is awake, alert, obeys commands, Oriented to person, place, time, situation, Moves all extremities. Full function Gait is steady, Speech is normal, Facial symmetry appears normal, Denies blurred vision headache diplopia. Cardiovascular: Patient's skin is warm and dry. Pulses are 3+ in right radial artery and left radial artery. Respiratory: Airway is patent Respiratory effort is even, unlabored, Respiratory pattern is regular, symmetrical, Denies shortness of breath. Derm: Skin is pink, warm \T\ dry. Musculoskeletal: Range of motion: intact in all extremities. Historical: - Allergies: 10:29 Iodine; sv 10:29 Lamisil; sv - Home Meds: 10:29 amlodipine 2.5 mg tab 1 tab once daily [Active]; [place] Thyroid 60 mg Oral tab sv [Active]; B-12 [Active]; D-3 [Active]; carvedilol 12.5 mg Oral tab 1 tab 2 times per day [Active]; gabapentin 300 mg Oral cap twice a day [Active]; losartan 100 mg Oral tab 1 tab once daily [Active]; lutein Oral [Active]; Magnesium Oxide Oral [Active]; Meclizine Oral [Active]; metformin 500 mg Oral tab 1 tab 2 times per day [Active]; Novolin N 100 unit/mL Sub-Q susp 20 units before breakfast and 10 units before supper [Active]; Novolin R Sub-Q 5 units before breakfast and 10 units before supper [Active]; omeprazole 20 mg Oral cpDR 1 cap once daily [Active]; Osteo Bi-Flex Oral [Active]; pravastatin 20 mg Oral tab 1 tab once daily [Active]; Probiotic Oral [Active]; tumeric [Active]; Zyrtec Oral [Active]; - PMHx: 10:29 Diabetes - IDDM; GERD; High Cholesterol; Hypertension; Hypothyroidism; ovarian cancer; sv - PSHx: 10:29 Left knee replacement; Hysterectomy; Appendectomy; Cholecystectomy; Tonsillectomy; sv Adenoids; Cancerous Polyp; prolapsed bladder repair; - Immunization history:: Flu vaccine is up to date. - Social history:: Smoking status: Patient/guardian denies using tobacco. - Ebola Screening: : No symptoms or risks identified at this time. Screenin:31 Abuse screen: Denies threats or abuse. Denies injuries from another. Nutritional sv screening: No deficits noted. Tuberculosis screening: No symptoms or risk factors identified. Fall Risk None identified. Assessment: 11:28 Reassessment: Patient appears in no apparent distress at this time. No changes from sv previously documented assessment. Patient and/or family updated on plan of care and expected duration. Pain level reassessed. Patient is alert, oriented x 3, equal unlabored respirations, skin warm/dry/pink. 12:10 Reassessment: Pt ambulatory to the bathroom with standby assist. No difficulty noted. sv 12:30 Reassessment: Pt waiting for her daughter to get here to take her home. sv 12:39 Reassessment: Patient appears in no apparent distress at this time. No changes from sv previously documented assessment. Patient and/or family updated on plan of care and expected duration. Pain level reassessed. Patient is alert, oriented x 3, equal unlabored respirations, skin warm/dry/pink. Vital Signs: 10:29 BP 177 / 83; Pulse 92; Resp 16; Temp 98.6(O); Pulse Ox 98% on R/A; Weight 68.04 kg; sv Height 5 ft. 7 in. (170.18 cm); Pain 0/10; 11:30 BP 204 / 82; Pulse 86; Resp 16; Pulse Ox 95% ; sv 10:29 Body Mass Index 23.49 (68.04 kg, 170.18 cm) sv ED Course: 10:23 Patient arrived in ED. sv 10:23 Cari Allen, RN is Primary Nurse. sv 10:24 [facility]C [facility]. snw 10:24 Anderson Collins MD is Attending Physician. snw 10:25 Triage completed. sv 10:30 Arm band placed on Patient placed in an exam room, on a stretcher, on pulse oximetry. sv 10:31 Patient has correct armband on for positive identification. Bed in low position. Call sv light in reach. Side rails up X2. Pulse ox on. NIBP on. Door closed. Head of bed elevated. 10:[address] via stretcher. sv 10:41 EKG done, by orthodontic laboratory technician. reviewed by Kamila SINGLETON. at1 10:42 CT Head C Spine In Process Unspecified. EDMS 11:08 X-ray completed. Portable x-ray completed in exam room. Patient tolerated procedure mh1 well. 11:10 XRAY Chest (1 view) In Process Unspecified. EDMS 11:10 Initial lab(s) drawn, by me, sent to lab. Inserted saline lock: 20 gauge in right sv antecubital area, using aseptic technique. Blood collected. Flushed right antecubital with 5 ml normal saline. 12:31 No provider procedures requiring assistance completed. IV discontinued, intact, sv bleeding controlled, No redness/swelling at site. Pressure dressing applied. Administered Medications: 12:19 Drug: Magnesium 400 mg Route: PO; sv 12:39 Follow up: Response: No adverse reaction sv 12:19 Drug: cloNIDine 0.1 mg Route: PO; sv 12:38 Follow up: Response: No adverse reaction sv Outcome: 12:06 Discharge ordered by MD. snw 12:39 Discharged to home ambulatory. sv 12:39 Condition: stable 12:39 Discharge instructions given to patient, Instructed on discharge instructions, follow up and referral plans. Demonstrated understanding of instructions, follow-up care. 12:40 Patient left the ED. sv Signatures: Dispatcher [employer] Cari Mcnamara RN RN sv Kamila Rm, PREDATOR CONTROL TRAPPER-C PREDATOR CONTROL TRAPPER-Csnw Latisha Bell 1 Hamida Henao, avionics installer EKG Tat1
--- NOTE | 2018-07-23 12:39 | EKG ---
Test Date: 2018-07-23 Test Time: 10:31:19 Credit Control Manager: ARABELLA MEASUREMENT RESULTS: Intervals: Rate: 84 OH: 172 QRSD: 94 QT: 388 QTc: 458 [place]: P: 15 OH: 172 QRS: -23 T: 72 INTERPRETIVE STATEMENTS: Sinus rhythm with sinus arrhythmia with premature ventricular complexes Left ventricular hypertrophy with repolarization abnormality Anteroseptal infarct, age undetermined Abnormal ECG Compared to ECG 12/14/2016 12:12:08 Fusion complex(es) now present Ventricular premature complex(es) now present Early repolarization now present Myocardial infarct finding still present Electronically Signed On 07-23-18 12:38:33 SALESPERSON RECREATIONAL VEHICLES by Uzair Elizabeth
[2018-07-23 13:12] VITALS: TEMP 98.6
[2018-07-23 13:13] VITALS: BP 204/82; O2SAT 95
== END 2018-07-23 12:40 | disposition home or self-care (01) ==
LOC: ER 10:17
DX: R42 Dizziness and giddiness (principal); W18.30XA Fall on same level, unspecified, initial encounter; Y93.89 Activity, other specified; Y92.003 Bedroom of unspecified non-institutional (private) residence as the place of occurrence of the external cause; Z79.4 Long term (current) use of insulin; Z85.43 Personal history of malignant neoplasm of ovary; I10 Essential (primary) hypertension; E11.9 Type 2 diabetes mellitus without complications; E03.9 Hypothyroidism, unspecified
CPT/HCPCS: 36415; 70450; 71045; 72125; 80048; 80076; 82962; 83735; 83880; 84484; 85025; 85610; 93005; 99285

== ENCOUNTER 2018-10-20 06:54 | Day surgery (SDC) | payer OTHER, MEDICARE ==
[2018-10-20] MEDS ORDERED: LIDOCAINE 2% MPF 5 ML VIAL ONE ×2 (07:23→08:24)
[2018-10-20] MEDS ORDERED: NA CHLORIDE 0.9% 500 ML ONE (07:24)
[2018-10-20] MEDS ORDERED: TETRACAINE HCL 0.5% 2ML OPTH ONE (07:24)
[2018-10-20] MEDS ORDERED: LIDOCAINE 1% MPF 5 ML VIAL ONE (07:25)
[2018-10-20] MEDS: PHENYLEPHRINE 10% OPTH 5ML ONE ×3 (07:26→07:46)
[2018-10-20] MEDS: CYCLOPENTOLATE 1% OPTH 2 ML ONE ×3 (07:26→07:46)
[2018-10-20] MEDS ORDERED: NS 0.9% VIAL 10 ML ONE (08:13)
[2018-10-20] MEDS ORDERED: EPINEPHRINE/PF 1 MG/ML AMP ONE (08:14)
[2018-10-20] MEDS ORDERED: BALANCED SALT IRRIG PLAIN 500 ML BTL IRR ONE (08:15)
[2018-10-20] MEDS ORDERED: DUOVISC 1 KIT OPTH ONE (08:15)
[2018-10-20] MEDS ORDERED: MOXIFLOXACIN HCL 10 DROPS/ML **OR USE OPTH ONE (08:16)
[2018-10-20] MEDS: BUPIVACAINE 0.25% PF 10 ML VIAL ONE ×2 (08:21→08:31)
[2018-10-20] MEDS ORDERED: PROPOFOL 200 MG/20 ML VIAL IV ONE (08:23)
--- NOTE | 2018-10-20 09:06 | P.BOP ---
Preoperative diagnosis: Nuclear sclerotic cataract OS Postoperative diagnosis: Same Primary procedure: Phacoemulsification with IOL OS Estimated blood loss: None Anesthesia: Local (Subtenon's infusion with anesthesia for cataract surgery) Complications: None Implants: SA60WF +19.5 Transferred to: Other (Day surgery) Condition: Good
[2018-10-20 09:18] VITALS: BP 114/48; TEMP 97.4; O2SAT 100
--- NOTE | 2018-10-20 20:42 | OP ---
Surgeon: Sunita Fraga MD Anesthesiologist: Robert Sanchez CRNA. Preoperative Diagnosis: Nuclear sclerotic cataract, left eye. Operation Performed: Phacoemulsification with intraocular lens implant, left eye. Anesthesia: Per cataract surgery. Complications: None. Description Of Procedure: In day surgery, the patient was prepped with Betadine and draped. A conju nctival incision was made in the inferior nasal quadrant with Phillip scissors. A sub-Tenon block c onsisting of a 1:1 mixture of 2% Xylocaine and 0.25% bupivacaine was placed through the conjunctival incision with a blunt cannula. A [place] balloon was placed over the eye and the patient was transferr ed to the operating room. In the operating room the patient was prepped and draped in the usual sterile fashion for ophthalmic surgery. A lid speculum was placed in the left eye. Two paracentesis sites were made superiorly and inferiorly in the limbal cornea. Viscoat was placed in the anterior chamber and a crescent blade wa s used to make a corneal groove and tunnel, and a keratome was used to enter the anterior chamber. P rovisc was placed in the anterior chamber and a 360 degree capsulotomy was performed with a cystitome . The lens was hydrodissected with BSS and rotated freely. The lens was removed with a stop and cho p technique. 13.68 phaco CDE was used to remove the lens. Residual cortex was removed with the irri gation and aspiration. Provisc was placed in the capsular bag. A SA60WF +19.5 lens was placed in th e capsular bag without complications. Irrigation and aspiration was used to remove residual viscoela stic. The paracentesis sites were hydrated with BSS. The wound and paracentesis sites were inspecte d and found to be watertight. Vigamox 0.07 cc was placed intracamerally at the end of the procedure. The eye was irrigated with balanced salt solution. The eye was patched with a soft cotton patch an d Conley metal shield. The patient was returned to day surgery in good condition. Comments: 1:5000 epinephrine was placed in the anterior chamber prior to Viscoat. Discharge Instructions: Ms. Bennett is discharged to home in good condition and is to follow up with George Fraga in the morning. AUGUSTA/HENNA Voice ID: [id number] Report ID: [id number]
== END 2018-10-20 09:38 | disposition home or self-care (01) ==
LOC: OR 06:54
PROVIDERS: ATTEND Ophthalmology Retina Specialist
PROC: 08RK3JZ Replacement of Left Lens with Synthetic Substitute, Percutaneous Approach (ICD-10-PCS; principal; 2018-10-20 08:30)
DX: H25.12 Age-related nuclear cataract, left eye (principal); H25.012 Cortical age-related cataract, left eye; E11.9 Type 2 diabetes mellitus without complications; E07.9 Disorder of thyroid, unspecified; E78.00 Pure hypercholesterolemia, unspecified; I10 Essential (primary) hypertension; K21.9 Gastro-esophageal reflux disease without esophagitis; M19.90 Unspecified osteoarthritis, unspecified site; Z79.4 Long term (current) use of insulin; Z79.899 Other long term (current) drug therapy; Z87.891 Personal history of nicotine dependence
CPT/HCPCS: 36415; 66984; 82962; 84132; J0171; J2704

== ENCOUNTER 2019-03-09 11:47 | Day surgery (SDC) | payer OTHER, MEDICARE ==
[2019-03-09] MEDS ORDERED: NA CHLORIDE 0.9% 500 ML ONE (12:20)
[2019-03-09] MEDS ORDERED: LIDOCAINE 2% MPF 5 ML VIAL ONE (12:21)
[2019-03-09] MEDS ORDERED: BUPIVACAINE 0.25% PF 10 ML VIAL ONE (12:21)
[2019-03-09] MEDS ORDERED: TETRACAINE HCL 0.5% 4ML OPTH ONE (12:22)
[2019-03-09] MEDS ORDERED: BALANCED SALT IRRIG PLAIN 500 ML BTL IRR ONE (12:26)
[2019-03-09] MEDS ORDERED: DUOVISC 1 KIT OPTH ONE (12:26)
[2019-03-09] MEDS ORDERED: LIDOCAINE 1% MPF 2 ML AMPULE ONE (12:26)
[2019-03-09] MEDS ORDERED: NS 0.9% VIAL 10 ML ONE (12:26)
[2019-03-09] MEDS ORDERED: MOXIFLOXACIN HCL 10 DROPS/ML **OR USE OPTH ONE (12:27)
[2019-03-09] MEDS: PHENYLEPHRINE 10% OPTH 5ML ONE ×3 (12:43→12:55)
[2019-03-09] MEDS: CYCLOPENTOLATE 1% OPTH 2 ML ONE ×3 (12:43→12:55)
[2019-03-09] MEDS: LIDOCAINE HCL/PF 3.5% OPTH GEL ONE ×3 (13:13→13:43)
[2019-03-09 13:27] VITALS: O2SAT 97
[2019-03-09] MEDS ORDERED: MIDAZOLAM HCL 2 MG/2 ML INJ ONE ×2 (13:35→13:53)
[2019-03-09] MEDS: EPINEPHRINE/PF 1 MG/ML AMP ONE ×2 (13:45→13:58)
--- NOTE | 2019-03-09 14:24 | P.BOP ---
Preoperative diagnosis: Nuclear sclerotic cataract and pseudoexfoliation OD Postoperative diagnosis: Same Primary procedure: Phacoemulsification with IOL OD Estimated blood loss: None Anesthesia: Local (Topical with anesthesia for cataract surgery) Complications: None Implants: SA60WF +21.0 Transferred to: Other (Day surgery) Condition: Good
[2019-03-09 16:04] VITALS: BP 153/68; TEMP 97.2
--- NOTE | 2019-03-09 23:34 | OP ---
Date of Procedure: 03/09/2019 Surgeon: Sunita Frgaa MD Anesthesiologist: Shelley Colin CRNA and Robert Amaral MD. Preoperative Diagnoses: Nuclear sclerotic cataract and pseudoexfoliation, right eye. Operation Performed: Phacoemulsification with intraocular lens implant, right eye. Anesthesia: Per cataract surgery. Complications: None. Description Of Procedure: In the operating room the patient was prepped and draped in the usual ster ile fashion for ophthalmic surgery. A lid speculum was placed in the right eye. Two paracentesis si danna were made superiorly and inferiorly in the limbal cornea. Viscoat was placed in the anterior monika mber and a crescent blade was used to make a corneal groove and tunnel, and a keratome was used to en ter the anterior chamber. Provisc was placed in the anterior chamber and a 360 degree capsulotomy wa s performed with a cystitome. The lens was hydrodissected with BSS and rotated freely. The lens was removed with a stop and chop technique. 7.18 phaco CDE was used to remove the lens. Residual melissa x was removed with the irrigation and aspiration. Provisc was placed in the capsular bag. A SA60WF +21.0 lens was placed in the capsular bag without complications. Irrigation and aspiration were used to remove residual viscoelastic. The paracentesis sites were hydrated with BSS. The wound and para centesis sites were inspected and found to be watertight. Vigamox 0.07 cc was placed intracamerally at the end of the procedure. The eye was irrigated with balanced salt solution. The eye was patched with a soft cotton patch and Conley metal shield. The patient was returned to day surgery in good condition. Comments: Akten was placed in the eye in Day Surgery and irrigated out of the eye with BSS in the OR . Preservative-free 1% lidocaine was placed in the anterior chamber prior to Viscoat. Discharge Instructions: Ms. Bennett is discharged to home in good condition and is to follow up with George Fraga in the morning. AUGUSTA/HENNA Voice ID: [id number] Report ID: [id number]
== END 2019-03-09 14:58 | disposition home or self-care (01) ==
LOC: OR 11:47
PROVIDERS: ATTEND Ophthalmology Retina Specialist
PROC: 08RJ3JZ Replacement of Right Lens with Synthetic Substitute, Percutaneous Approach (ICD-10-PCS; principal; 2019-03-09 12:00)
DX: H25.11 Age-related nuclear cataract, right eye (principal); H26.8 Other specified cataract; H52.203 Unspecified astigmatism, bilateral; E11.9 Type 2 diabetes mellitus without complications; E07.9 Disorder of thyroid, unspecified; E78.00 Pure hypercholesterolemia, unspecified; I10 Essential (primary) hypertension; K21.9 Gastro-esophageal reflux disease without esophagitis; M19.90 Unspecified osteoarthritis, unspecified site; Z79.4 Long term (current) use of insulin; Z79.899 Other long term (current) drug therapy; Z87.891 Personal history of nicotine dependence
CPT/HCPCS: 66984; 36415; 84132; 82962; J0171; J2250; J2001

== ENCOUNTER 2020-04-19 12:05 | Emergency (ER) | payer OTHER, MEDICARE ==
[2020-04-19] MEDS ORDERED: NA CHLORIDE 0.9% 500 ML ONE (12:53)
--- NOTE | 2020-04-19 13:10 | RAD REPORT ---
EXAM DESCRIPTION: Black Single View04/19/2020 12:56 pm CLINICAL HISTORY: Chest pain COMPARISON: 2017 FINDINGS: The lungs appear clear of acute infiltrate. The heart is normal size IMPRESSION: No acute abnormalities displayed
[2020-04-19 13:42] LABS: Absolute Lymphocytes (CBC) 1.5 K/uL (0.7-4.9); Basophils % 0.5 % (0-1.3); Hematocrit 39.7 % (36.0-45.0); Lymphocytes % 15.2 % (15.3-44.8); MPV 9.7 fL (7.6-11.3); Protime INR 1.04; RBC Red Blood Cell Count 4.67 M/uL (3.86-4.86)
[2020-04-19 13:55] LABS: ALT/SGPT 23 U/L (12-78); AST/SGOT 19 U/L (15-37); Albumin 3.1 g/dL (3.4-5.0); Alkaline Phosphatase 49 U/L (45-117); BUN Blood Urea Nitrogen 31 mg/dL (7-18); Bicarbonate 27 mmol/L (21-32); Bilirubin Direct 0.2 mg/dL (0-0.2); Bilirubin Total 0.8 mg/dL (0.2-1.0); Glucose Level 146 mg/dL (74-106); Magnesium 1.9 mg/dL (1.8-2.4); NT PRO-BNP 1786 pg/mL (<450); Protein, Total 6.5 g/dL (6.4-8.2); Sodium Level 143 mmol/L (136-145); Troponin (Emerg Dept Use Only) < 0.02 ng/mL (0.0-0.045)
--- NOTE | 2020-04-19 14:22 | ER ---
Nurse's Notes [facility] Name: Traci Bennett Age: 85 yrs Sex: Female : 1935 Arrival Date: 04/19/2020 Time: 12:15 Bed 23 Private MD: Diagnosis: Orthostatic hypotension;Dehydration;Weakness Presentation: 04/19 12:15 Chief complaint: EMS states: "we were initially called out for a pt that had a fall and jd3 need help standing back up. when we got there, she was having low blood pressure and reporting dizziness when changing position. she was orthostatic positive. she does report a history of becoming dizzy with bowel movements and changing positions. no LOC. IV 20 G stated to left AC.". Coronavirus screen: At this time, the client does not indicate any symptoms associated with coronavirus-19. Ebola Screen: Patient negative for fever greater than or equal to 101.5 degrees Fahrenheit, and additional compatible Ebola Virus Disease symptoms. Initial Sepsis Screen: Does the patient meet any 2 criteria? No. Patient's initial sepsis screen is negative. Does the patient have a suspected source of infection? No. Patient's initial sepsis screen is negative. Risk Assessment: Do you want to hurt yourself or someone else? Patient reports no desire to harm self or others. Onset of symptoms was April 19, 2020. 12:15 Method Of Arrival: EMS: [facility] jd3 12:15 Acuity: PRICILA 3 jd3 Historical: - Allergies: 14:56 Iodine; jd3 14:56 Lamisil; jd3 - PMHx: 14:56 ovarian cancer; Hypertension; High Cholesterol; Hypothyroidism; Diabetes - IDDM; GERD; jd3 - PSHx: 14:56 Adenoids; Cholecystectomy; Tonsillectomy; Appendectomy; Cancerous Polyp; Hysterectomy; jd3 prolapsed bladder repair; Left knee replacement; - Immunization history:: Adult Immunizations up to date. - Social history:: Smoking status: Patient denies any tobacco usage or history of. Screenin:23 Abuse screen: Denies threats or abuse. Nutritional screening: No deficits noted. jd3 Tuberculosis screening: No symptoms or risk factors identified. Fall Risk Fall in past 12 months (25 points). IV access (20 points). Ambulatory Aid- None/Bed Rest/Nurse Assist (0 pts). Gait- Normal/Bed Rest/Wheelchair (0 pts) Mental Status- Oriented to own ability (0 pts). Total Villalta Fall Scale indicates Low Risk Score (25-44 pts). Fall prevention measures have been instituted. Side Rails Up X 2 Placed close to Nursing Station Frequent Obs/Assesments occuring. Assessment: 12:21 General: Appears in no apparent distress. comfortable, Behavior is calm, cooperative, jd3 appropriate for age. Pain: Denies pain. Neuro: Level of Consciousness is awake, alert, obeys commands, Oriented to person, place, time, situation, Reports dizziness prior to arrival.. Denies weakness blurred vision dizziness. Cardiovascular: Denies chest pain, Capillary refill < 3 seconds Patient's skin is warm and dry. Respiratory: Airway is patent Respiratory effort is even, unlabored, Respiratory pattern is regular, symmetrical, Denies cough, shortness of breath. GI: No signs and/or symptoms were reported involving the gastrointestinal system. Patient currently denies abdominal pain, constipation, diarrhea, nausea, vomiting. : No signs and/or symptoms were reported regarding the genitourinary system. EENT: No signs and/or symptoms were reported regarding the EENT system. Derm: Skin is intact, Skin is dry, Skin is normal, Skin temperature is warm. Musculoskeletal: Circulation, motion, and sensation intact. Range of motion: intact in all extremities. 13:22 Reassessment: Patient appears in no apparent distress at this time. No changes from jd3 previously documented assessment. Patient and/or family updated on plan of care and expected duration. Pain level reassessed. Patient is alert, oriented x 3, equal unlabored respirations, skin warm/dry/pink. 14:55 Reassessment: Patient appears in no apparent distress at this time. Patient and/or jd3 family updated on plan of care and expected duration. Pain level reassessed. Patient is alert, oriented x 3, equal unlabored respirations, skin warm/dry/pink. Patient denies pain at this time. Patient states feeling better. Vital Signs: 12:20 BP 115 / 49; Pulse 64; Resp 18 S; Temp 97.7(O); Pulse Ox 93% on R/A; Weight 68.04 kg jd3 (R); Height 5 ft. 7 in. (170.18 cm) (R); Pain 0/10; 13:22 BP 144 / 70; Pulse 75; Resp 17 S; Pulse Ox 99% on R/A; jd3 13:45 BP 185 / 64 Supine; Pulse 76; jd3 13:45 BP 193 / 68 Sitting; Pulse 75; jd3 13:45 BP 188 / 70 Standing; Pulse 79; jd3 14:54 BP 160 / 70; Pulse 76; Resp 17 S; Pulse Ox 98% on R/A; jd3 12:20 Body Mass Index 23.49 (68.04 kg, 170.18 cm) jd3 ED Course: 12:15 Patient arrived in ED. jd3 12:16 Jean Marie Terrazas NP is PHCP. pm1 12:16 Alvaro Quiles MD is Attending Physician. pm1 12:20 Triage completed. jd3 12:21 Arm band placed on. jd3 12:23 Patient has correct armband on for positive identification. Placed in gown. Bed in low jd3 position. Call light in reach. Side rails up X2. Pulse ox on. NIBP on. 12:24 Conrado Aguilar RN is Primary Nurse. jd3 12:57 XRAY Chest (1 view) In Process Unspecified. EDMS 13:22 Maintain EMS IV. Dressing intact. Good blood return noted. Site clean \\T\\ dry. Gauge \\T\\ aure 3 site: 20 G left AC. 13:22 EKG done, by ED staff, reviewed by Alvaro Quiles MD. jd3 13:44 Bath given. Cleaned of incontinence. Linen changed. jd3 13:45 Warm blanket given. jd3 14:55 No provider procedures requiring assistance completed. IV discontinued, intact, jd3 bleeding controlled, No redness/swelling at site. Pressure dressing applied. Administered Medications: 13:34 Drug: NS 0.9% 500 ml Route: IV; Rate: bolus; Site: left antecubital; jd3 14:56 Follow up: Response: No adverse reaction; IV Status: Completed infusion; IV Intake: jd3 500ml Intake: 14:56 IV: 500ml; Total: 500ml. jd3 Outcome: 14:22 Discharge ordered by . pm1 14:55 Discharged to home ambulatory, with family. jd3 14:55 Condition: stable 14:55 Discharge instructions given to patient, Instructed on discharge instructions, follow up and referral plans. Demonstrated understanding of instructions, follow-up care. 15:07 Patient left the ED. jd3 Signatures: Dispatcher [employer] Jean Marie Osborne NP PNEUMATIC TOOL REPAIRER pm1 Conrado Aguilar RN RN jd3
--- NOTE | 2020-04-19 14:22 | EDPHYS ---
Physician Documentation [facility] Name: Traci Bennett Age: 85 yrs Sex: Female : 1935 Arrival Date: 04/19/2020 Time: 12:15 Bed 23 Private MD: ED Physician Alvaro Quiles HPI: 04/19 13:08 This 85 yrs old Female presents to ER via EMS with complaints of Generalized pm1 Weakness. 13:08 Details of fall: The patient fell from an upright position, while standing. Onset: The pm1 symptoms/episode began/occurred just prior to arrival. Associated injuries: The patient sustained no obvious injury. The patient has experienced similar episodes in the past, several times. The patient has not recently seen a physician, Just returned from [facility] for lab draw. Patient has not eaten or drank much food at all today because she was fasting for labs. She went to [facility] for her labs. She was just sipping on a frozen bottle of water and was not able to provide a urine sample. Patient got home, rushing to the restroom because she accidentally defecated on herself. She has no multiple occasions had her blood pressure get low when she defecates. She felt weak and fell down to the floor. No injury or pain. She was not able to get back up from the floor so she called the ambulance. No headache, head injury, neck pain, LOC, chest pain or shortness of breath. Historical: - Allergies: 14:56 Iodine; jd3 14:56 Lamisil; jd3 - PMHx: 14:56 ovarian cancer; Hypertension; High Cholesterol; Hypothyroidism; Diabetes - IDDM; GERD; jd3 - PSHx: 14:56 Adenoids; Cholecystectomy; Tonsillectomy; Appendectomy; Cancerous Polyp; Hysterectomy; jd3 prolapsed bladder repair; Left knee replacement; - Immunization history:: Adult Immunizations up to date. - Social history:: Smoking status: Patient denies any tobacco usage or history of. ROS: 13:20 Constitutional: Negative for fever, chills, and weight loss, Eyes: Negative for injury, pm1 pain, redness, and discharge, ENT: Negative for injury, pain, and discharge, Neck: Negative for injury, pain, and swelling, Cardiovascular: Negative for chest pain, palpitations, and edema, Respiratory: Negative for shortness of breath, cough, wheezing, and pleuritic chest pain, Abdomen/GI: Negative for abdominal pain, nausea, vomiting, diarrhea, and constipation, Back: Negative for injury and pain, : Negative for injury, bleeding, discharge, and swelling, MS/Extremity: Negative for injury and deformity, Skin: Negative for injury, rash, and discoloration. 13:20 Neuro: Positive for generalized weakness. Exam: 13:20 Constitutional: This is a well developed, well nourished patient who is awake, alert, pm1 and in no acute distress. Head/Face: Normocephalic, atraumatic. Eyes: Pupils equal round and reactive to light, extra-ocular motions intact. Lids and lashes normal. Conjunctiva and sclera are non-icteric and not injected. Cornea within normal limits. Periorbital areas with no swelling, redness, or edema. Neck: Trachea midline, no thyromegaly or masses palpated, and no cervical lymphadenopathy. Supple, full range of motion without nuchal rigidity, or vertebral point tenderness. No Meningismus. Chest/axilla: Normal chest wall appearance and motion. Nontender with no deformity. No lesions are appreciated. 13:20 Back: No spinal tenderness. No costovertebral tenderness. Full range of motion. Skin: Warm, dry with normal turgor. Normal color with no rashes, no lesions, and no evidence of cellulitis. MS/ Extremity: Pulses equal, no cyanosis. Neurovascular intact. Full, normal range of motion. 13:20 Cardiovascular: Exam negative for acute changes, Rate: normal, Rhythm: regular, Pulses: no pulse deficits are appreciated, Edema: is not appreciated. 13:20 Respiratory: Exam negative for acute changes, respiratory distress, shortness of breath. 13:20 Abdomen/GI: Exam negative for acute changes, Inspection: abdomen appears normal, Palpation: abdomen is soft and non-tender, in all quadrants. 13:20 Neuro: Exam negative for acute changes, Orientation: is normal, Mentation: is normal, Motor: is normal, moves all fours. Vital Signs: 12:20 BP 115 / 49; Pulse 64; Resp 18 S; Temp 97.7(O); Pulse Ox 93% on R/A; Weight 68.04 kg jd3 (R); Height 5 ft. 7 in. (170.18 cm) (R); Pain 0/10; 13:22 BP 144 / 70; Pulse 75; Resp 17 S; Pulse Ox 99% on R/A; jd3 13:45 BP 185 / 64 Supine; Pulse 76; jd3 13:45 BP 193 / 68 Sitting; Pulse 75; jd3 13:45 BP 188 / 70 Standing; Pulse 79; jd3 14:54 BP 160 / 70; Pulse 76; Resp 17 S; Pulse Ox 98% on R/A; jd3 12:20 Body Mass Index 23.49 (68.04 kg, 170.18 cm) jd3 MDM: 12:25 Patient medically screened. pm1 14:21 Data reviewed: vital signs. Data interpreted: Pulse oximetry: on room air is 99 %. pm1 Interpretation: normal. Counseling: I had a detailed discussion with the patient and/or guardian regarding: the historical points, exam findings, and any diagnostic results supporting the discharge/admit diagnosis, lab results, radiology results, the need for outpatient follow up, to return to the emergency department if symptoms worsen or persist or if there are any questions or concerns that arise at home. 04/19 12:34 Order name: Basic Metabolic Panel; Complete Time: 14:20 pm1 04/19 12:34 Order name: CBC with Diff; Complete Time: 13:48 pm1 04/19 12:34 Order name: LFT's; Complete Time: 14:20 pm1 04/19 12:34 Order name: Magnesium; Complete Time: 14:20 pm1 04/19 12:34 Order name: NT PRO-BNP; Complete Time: 14:20 pm1 04/19 12:34 Order name: PT-INR; Complete Time: 13:48 pm1 04/19 12:34 Order name: Troponin (emerg Dept Use Only); Complete Time: 14:20 pm1 04/19 12:34 Order name: XRAY Chest (1 view); Complete Time: 13:23 pm1 04/19 12:34 Order name: Cardiac monitoring; Complete Time: 12:40 pm1 04/19 12:34 Order name: EKG - Nurse/Tech; Complete Time: 13:21 pm1 04/19 12:34 Order name: IV Saline Lock; Complete Time: 13:21 pm1 04/19 12:34 Order name: Labs collected and sent; Complete Time: 13:21 pm1 04/19 12:34 Order name: O2 Per Protocol; Complete Time: 12:40 pm1 04/19 12:34 Order name: O2 Sat Monitoring; Complete Time: 12:40 pm1 04/19 12:34 Order name: Orthostatic Blood Pressure; Complete Time: 13:45 pm1 Administered Medications: 13:34 Drug: NS 0.9% 500 ml Route: IV; Rate: bolus; Site: left antecubital; jd3 14:56 Follow up: Response: No adverse reaction; IV Status: Completed infusion; IV Intake: jd3 500ml Disposition: 18:52 Co-signature as Attending Physician, Alvaro Quiles MD. rn Disposition: 04/19/20 14:22 Discharged to Home. Impression: Dehydration, Orthostatic hypotension, Weakness. - Condition is Stable. - Discharge Instructions: Dehydration, Elderly, Orthostatic Hypotension, Weakness, Rehydration, Elderly. - Medication Reconciliation Form, Thank You Letter, Antibiotic Education, Prescription Opioid Use form. - Follow up: Emergency Department; When: As needed; Reason: Worsening of condition. Follow up: Private Physician; When: 2 - 3 days; Reason: Recheck today's complaints, Continuance of care, Re-evaluation by your physician. - Problem is new. - Symptoms have improved. Signatures: Dispatcher [employer] EDMS Alvaro Quiles MD MD rn Marinas, Patrick, NP LICENSED NURSE PRACTITIONER pm1 Conrado Aguilar RN RN jd3 Corrections: (The following items were deleted from the chart) 15:07 14:22 04/19/2020 14:22 Discharged to Home. Impression: DehydrationOrthostatic jd3 hypotension; Weakness. Condition is Stable. Forms are Medication Reconciliation Form, Thank You Letter, Antibiotic Education, Prescription Opioid Use. Follow up: Emergency Department; When: As needed; Reason: Worsening of condition. Follow up: Private Physician; When: 2 - 3 days; Reason: Recheck today's complaints, Continuance of care, Re-evaluation by your physician. Problem is new. Symptoms have improved. pm1
[2020-04-19 16:42] VITALS: TEMP 97.7
[2020-04-19 16:46] VITALS: BP 160/70; O2SAT 98
--- NOTE | 2020-04-21 08:45 | EKG ---
Test Date: 2020-04-19 Test Time: 13:11:24 [employer] Repairer: DOMENICA MEASUREMENT RESULTS: Intervals: Rate: 73 RI: 184 QRSD: 98 QT: 416 QTc: 458 [place]: P: 24 RI: 184 QRS: -17 T: 34 INTERPRETIVE STATEMENTS: Normal sinus rhythm with sinus arrhythmia Anterior infarct, age undetermined Abnormal ECG Compared to ECG 07/23/2018 10:31:19 Ventricular premature complex(es) no longer present Left ventricular hypertrophy no longer present Early repolarization no longer present Myocardial infarct finding still present Electronically Signed On 04-21-20 08:38:59 CDT by Mio Zabala
== END 2020-04-19 15:07 | disposition home or self-care (01) ==
LOC: ER 12:05
DX: E86.0 Dehydration (principal); I95.1 Orthostatic hypotension; W19.XXXA Unspecified fall, initial encounter; Y93.89 Activity, other specified; Y92.009 Unspecified place in unspecified non-institutional (private) residence as the place of occurrence of the external cause; I10 Essential (primary) hypertension; Z85.43 Personal history of malignant neoplasm of ovary; Z88.8 Allergy status to other drugs, medicaments and biological substances
CPT/HCPCS: 93005; 85025; 80048; 36415; 83735; 85610; 80076; 84484; 83880; 71045; 96360; 99284; J7040

== ENCOUNTER 2020-06-28 08:27 | Inpatient (IN) | payer OTHER, MEDICARE ==
[2020-06-28] MEDS ORDERED: NA CHLORIDE 0.9% 1,000 ML ONE ×2 (09:02→10:30)
[2020-06-28 09:30] LABS: Albumin 3.6 g/dL (3.4-5.0); Bilirubin Direct 0.4 mg/dL (0-0.2); Bilirubin Total 1.7 mg/dL (0.2-1.0); CKMB Creatine Kinase MB 5.4 ng/mL (0.3-3.6); Potassium 4.1 mmol/L (3.5-5.1); Protein, Total 7.7 g/dL (6.4-8.2); Troponin (Emerg Dept Use Only) 0.02 ng/mL (0.0-0.045)
--- NOTE | 2020-06-28 09:32 | RAD REPORT ---
EXAM DESCRIPTION: CT - Head C Spine Cap Wo Con - 06/28/2020 8:58 am CLINICAL HISTORY: Pain;Weakness COMPARISON: Head C Spine Mpr Wo Con dated 07/23/2018 TECHNIQUE: Axial [address] head images were obtained. Axial [address] cervical spine images were obtain ed with sagittal and coronal reconstruction images reviewed. Axial 5 mm images of the chest, abdomen and pelvis were obtained without IV contrast. Sagittal and coronal reconstruction of the chest, abdo men and pelvis performed. All CT scans are performed using dose optimization technique as appropriate and may include automated exposure control or mA/KV adjustment according to patient size. FINDINGS: No intracranial hemorrhage, mass or edema. No midline shift or abnormal fluid collection. Mastoid air cells and paranasal sinuses are clear. No skull fracture. Patient has moderate severity for age atrophy and chronic ischemic change. Ventricles are in proportion to the volume loss. Intracr anial findings are not significantly different from July 2018 study. Arterial calcifications are present. CT cervical spine shows normal height and alignment. No fracture or acute finding. No disc space narr owing. There is degenerative cystic change at the anterior base of the dens. No acute soft tissue fin ding. Patient has very dense carotid bulb calcifications. Stenosis is likely but severity cannot be a ssessed on a noncontrast study. Central canal detail is inherently limited. Prominent facet joint deg enerative changes are present. Mild bony foraminal encroachment seen at C3-4. Moderate left foraminal stenosis at C4-5 and C5-6. Moderate to moderately severe foraminal stenosis on the left at C6-7. CT chest shows no pneumothorax, pulmonary contusion or pleural fluid collection. No mediastinal hemat marlena and the aorta and pulmonary arteries are unremarkable for non contrast study. No chest will mass or abnormal axillary finding. No displaced rib fracture or other significant bony finding. Scattered , mild for age scarring changes noted in the lung parenchyma. No displaced rib fracture. No pathologi c bone process seen. CT abdomen and pelvis show no injury to the solid abdominal viscera. Cholecystectomy clips are presen t. No biliary tree dilatation. No bowel injury or significant finding. No free air, free fluid or abn ormal stranding. No urinary bladder abnormality. Uterus is absent. Ovaries are absent or atrophic. No adnexal mass. Bony degenerative changes are present. Advanced degenerative disc disease present at L2-3 and L4-5. P rominent facet degenerative changes are present. No vertebral body compression fracture. Sacrum is in tact. No displaced or grossly angulated coccyx fracture. There is subtle cortical irregularity at the distal coccyx. A trace amount of stranding is seen in the adjacent fat. . IMPRESSION: Atrophy and chronic ischemic change similar to comparison. No acute finding. Cervical spine degenerative changes as detailed. No acute finding. No acute CT chest finding. No acute soft tissue injury identified. The patient has a questionable nondisplaced fracture of the d istal coccyx.
--- NOTE | 2020-06-28 09:44 | RAD REPORT ---
EXAM DESCRIPTION: RAD - Chest Single View - 06/28/2020 9:23 am CLINICAL HISTORY: COUGH, fall with chest trauma COMPARISON: April 19, 2020 TECHNIQUE: AP portable chest image was obtained 06/28/2020 9:23 am . FINDINGS: Lungs are clear of an acute process. Interstitial pattern is stable. Heart and vasculature are normal. No measurable pleural effusion and no pneumothorax. No acute bony abnormality seen. No a cute aortic findings suspected. IMPRESSION: No acute cardiopulmonary process. No significant change from comparison.
[2020-06-28 10:11] LABS: Absolute Lymphocytes (CBC) 1.8 K/uL (0.7-4.9); Basophils % 0.4 % (0-1.3); Hematocrit 47.3 % (36.0-45.0); Lymphocytes % 15.2 % (15.3-44.8); MPV 9.8 fL (7.6-11.3); RBC Red Blood Cell Count 5.45 M/uL (3.86-4.86)
--- NOTE | 2020-06-28 10:15 | EDPHYS ---
Physician Documentation [facility] Name: Traci Bennett Age: 85 yrs Sex: Female : 1935 Arrival Date: 06/28/2020 Time: 08:29 Bed 5 Private MD: ED Physician Anderson Collins HPI: 06/28 10:06 This 85 yrs old Female presents to ER via EMS with complaints of Fall Injury. monkia 10:06 Details of fall: The patient fell from seated position, out of a chair. Onset: The monika symptoms/episode began/occurred yesterday. Associated injuries: The patient sustained injury to the low back, pain. Severity of symptoms: At their worst the symptoms were mild, moderate, in the emergency department the symptoms are unchanged. The patient has not experienced similar symptoms in the past. Historical: - Allergies: 08:15 Iodine; rb1 08:15 Lamisil; rb1 - Home Meds: 08:15 amlodipine 2.5 mg tab 1 tab once daily [Active]; B-12 [Active]; D-3 [Active]; rb1 gabapentin 300 mg Oral cap twice a day [Active]; carvedilol 12.5 mg Oral tab 1 tab 2 times per day [Active]; losartan 100 mg Oral tab 1 tab once daily [Active]; Novolin N 100 unit/mL Sub-Q susp 20 units before breakfast and 10 units before supper [Active]; Novolin R Sub-Q 5 units before breakfast and 10 units before supper [Active]; Osteo Bi-Flex Oral [Active]; pravastatin 20 mg Oral tab 1 tab once daily [Active]; Probiotic Oral [Active]; isosorbide [Active]; - PMHx: 08:15 Diabetes - IDDM; GERD; High Cholesterol; Hypertension; Hypothyroidism; ovarian cancer; rb1 - PSHx: 08:15 Adenoids; Cholecystectomy; Tonsillectomy; Appendectomy; Cancerous Polyp; Hysterectomy; rb1 prolapsed bladder repair; Left knee replacement; right knee replacement; - Immunization history:: Adult Immunizations up to date. - Social history:: Smoking status: Patient/guardian denies using. ROS: 10:07 Constitutional: Negative for fever, chills, and weight loss, Eyes: Negative for injury, monika pain, redness, and discharge, ENT: Negative for injury, pain, and discharge, Neck: Negative for injury, pain, and swelling, Cardiovascular: Negative for chest pain, palpitations, and edema, Respiratory: Negative for shortness of breath, cough, wheezing, and pleuritic chest pain, Abdomen/GI: Negative for abdominal pain, nausea, vomiting, diarrhea, and constipation, : Negative for injury, bleeding, discharge, and swelling, Skin: Negative for injury, rash, and discoloration, Psych: Negative for depression, anxiety, suicide ideation, homicidal ideation, and hallucinations, Allergy/Immunology: Negative for hives, rash, and allergies, Endocrine: Negative for neck swelling, polydipsia, polyuria, polyphagia, and marked weight changes, Hematologic/Lymphatic: Negative for swollen nodes, abnormal bleeding, and unusual bruising. 10:07 Back: Positive for pain with movement. 10:07 MS/extremity: Positive for decreased range of motion, pain, of the left leg. Exam: 10:07 Constitutional: This is a well developed, well nourished patient who is awake, alert, monika and in no acute distress. Head/Face: Normocephalic, atraumatic. Eyes: Pupils equal round and reactive to light, extra-ocular motions intact. Lids and lashes normal. Conjunctiva and sclera are non-icteric and not injected. Cornea within normal limits. Periorbital areas with no swelling, redness, or edema. ENT: Nares patent. No nasal discharge, no septal abnormalities noted. Tympanic membranes are normal and external auditory canals are clear. Oropharynx with no redness, swelling, or masses, exudates, or evidence of obstruction, uvula midline. Mucous membranes moist. Neck: Trachea midline, no thyromegaly or masses palpated, and no cervical lymphadenopathy. Supple, full range of motion without nuchal rigidity, or vertebral point tenderness. No Meningismus. Chest/axilla: Normal chest wall appearance and motion. Nontender with no deformity. No lesions are appreciated. Cardiovascular: Regular rate and rhythm with a normal S1 and S2. No gallops, murmurs, or rubs. Normal PMI, no JVD. No pulse deficits. Respiratory: Lungs have equal breath sounds bilaterally, clear to auscultation and percussion. No rales, rhonchi or wheezes noted. No increased work of breathing, no retractions or nasal flaring. Abdomen/GI: Soft, non-tender, with normal bowel sounds. No distension or tympany. No guarding or rebound. No evidence of tenderness throughout. Back: No spinal tenderness. No costovertebral tenderness. Full range of motion. Skin: Warm, dry with normal turgor. Normal color with no rashes, no lesions, and no evidence of cellulitis. Psych: Awake, alert, with orientation to person, place and time. Behavior, mood, and affect are within normal limits. 10:07 Musculoskeletal/extremity: ROM: limited active range of motion, limited passive range of motion, in the left leg, Circulation is intact in all extremities. Sensation intact. Compartment Syndrome exam of affected extremity: is normal. DVT Exam: negative Homans' sign noted on exam, no appreciated bluish discoloration, no erythema, no increased warmth, pain, swelling, tenderness. 10:11 ECG was reviewed by the Attending Physician. [facility] Vital Signs: 08:15 BP 223 / 97; Pulse 85; Resp 17; Temp 97.0(TE); Pulse Ox 98% on R/A; Weight 69.85 kg; rb1 Height 5 ft. 7 in. (170.18 cm); Pain 0/10; 09:18 BP 171 / 79; Pulse 74; Resp 15; Pulse Ox 97% ; Pain 0/10; rb1 10:18 BP 180 / 93; Pulse 77; Resp 16; Pulse Ox 97% ; rb1 11:16 BP 186 / 92; Pulse 78; Resp 13; Temp 97.6(TE); Pulse Ox 97% on R/A; rb1 08:15 Body Mass Index 24.12 (69.85 kg, 170.18 cm) rb1 MDM: 08:37 Patient medically screened. [facility] 10:10 Differential Diagnosis sepsis. Differential diagnosis: abrasion, closed head injury, monika fracture, multiple trauma, sprain. Data reviewed: vital signs, nurses notes, lab test result(s), EKG, radiologic studies, CT scan. Data interpreted: materials management manager: rate is 74 beats/min, rhythm is regular, Pulse oximetry: on room air is 97 %. Test interpretation: by ED physician or midlevel provider: ECG, plain radiologic studies. Counseling: I had a detailed discussion with the patient and/or guardian regarding: the historical points, exam findings, and any diagnostic results supporting the discharge/admit diagnosis, lab results, radiology results, the need for further work-up and treatment in the hospital. 06/28 08:39 Order name: Basic Metabolic Panel [facility] 06/28 08:39 Order name: CBC with Diff [facility] 06/28 08:39 Order name: LFT's [facility] 06/28 08:39 Order name: Magnesium [facility] 06/28 08:39 Order name: NT PRO-BNP [facility] 06/28 08:39 Order name: PT-INR [facility] 06/28 08:39 Order name: Troponin (emerg Dept Use Only) [facility] 06/28 08:39 Order name: Lipase [facility] 06/28 08:39 Order name: CK [facility] 06/28 08:39 Order name: Ckmb [facility] 06/28 08:39 Order name: Lactate [facility] 06/28 08:39 Order name: Blood Culture Adult (2) [facility] 06/28 08:47 Order name: Glucose, Ancillary Testing; Complete Time: 10:03 EDMS 06/28 09:26 Order name: Lactate; Complete Time: 10:03 EDMS 06/28 08:39 Order name: XRAY Chest (1 view) [facility] 06/28 08:39 Order name: CT Traumagram (Head C Spine CAP wo con) [facility] 06/28 09:31 Order name: Basic Metabolic Panel; Complete Time: 10:03 EDMS 06/28 09:31 Order name: Liver (Hepatic) Function; Complete Time: 10:03 EDMS 06/28 09:31 Order name: Creatine Phosphokinase; Complete Time: 10:03 EDMS 06/28 09:31 Order name: CKMB Creatine Kinase MB; Complete Time: 10:03 EDMS 06/28 09:31 Order name: Troponin (Emerg Dept Use Only); Complete Time: 10:03 EDMS 06/28 09:31 Order name: NT PRO-BNP; Complete Time: 10:03 EDMS 06/28 09:31 Order name: Magnesium; Complete Time: 10:03 EDMS 06/28 09:31 Order name: Lipase; Complete Time: 10:03 EDMS 06/28 09:33 Order name: CT; Complete Time: 10:03 EDMS 06/28 10:12 Order name: CBC with Automated Diff; Complete Time: 10:14 EDMS 06/28 10:32 Order name: Protime (+INR) EDMN 06/28 10:41 Order name: Urine Culture jl7 06/28 11:03 Order name: Urine Dipstick--Ancillary (enter results) 06/28 11:13 Order name: Urine Dipstick-Ancillary EDMS 06/28 08:39 Order name: EKG; Complete Time: 08:40 [facility] 06/28 08:39 Order name: Cardiac monitoring; Complete Time: 08:43 [facility] 06/28 08:39 Order name: EKG - Nurse/Tech; Complete Time: 09:02 [facility] 06/28 08:39 Order name: IV Saline Lock; Complete Time: 08:59 [facility] 06/28 08:39 Order name: Labs collected and sent; Complete Time: 08:59 [facility] 06/28 08:39 Order name: O2 Per Protocol; Complete Time: 08:43 [facility] 06/28 08:39 Order name: O2 Sat Monitoring; Complete Time: 08:50 [facility] 06/28 09:09 Order name: Labs - recollect needed: recollect blue and lavendar top; Complete Time: bd 09:06/28 09:45 Order name: RAD; Complete Time: 10:03 EDMS 06/28 10:06 Order name: Marks; Complete Time: 10:40 [facility] 06/28 10:09 Order name: Knee Left 3 View XRAY 06/28 11:16 Order name: RAD EDMS EC:11 Rate is 76 beats/min. Rhythm is regular. QRS [place] is Normal. NV interval is normal. QRS monika interval is normal. QT interval is normal. No Q waves. T waves are Normal. No ST changes noted. Clinical impression: NSR w/ Non-specific ST/T Changes and No evidence of ischemia. Interpreted by me. Reviewed by me. Administered Medications: 08:50 Drug: NS 0.9% 1000 ml Route: IV; Rate: 1 bolus; Site: right antecubital; rb1 10:00 Follow up: IV Status: Completed infusion; IV Intake: 1000ml jl7 08:50 Drug: NS 0.9% 1000 ml Route: IV; Rate: 125 ml/hr; Site: right antecubital; rb1 10:25 Drug: Rocephin 1 grams Route: IV; Rate: per protocol; Site: right antecubital; jl7 10:28 Follow up: IV Status: Completed infusion jl7 10:40 Follow up: Response: No adverse reaction rb1 10:25 Drug: NS 0.9% 1000 ml Route: IV; Rate: 1 bolus; Site: right antecubital; jl7 10:41 Follow up: IV Status: Infusion continued upon admission jl7 Disposition: 06/28/20 10:14 Hospitalization ordered by Marcello Mo for Inpatient Admission. Preliminary diagnosis are Weakness, Syncope and collapse, Rhabdomyolysis, Unspecified kidney failure - acute on chronic, Type 1 diabetes mellitus. - Bed requested for Telemetry/MedSurg (Inpatient). - Status is Inpatient Admission. jl7 - Condition is Fair. - Problem is new. - Symptoms have improved. Signatures: Dispatcher [employer] EDMS Anais Marroquin Corey, MD MD cha Barber, Rebecca, RN RN [facility] Riley Perry RN RN jl7 Corrections: (The following items were deleted from the chart) 10:16 10:14 Hospitalization Ordered by Marcello Mo MD for Inpatient Admission. Preliminary monika diagnosis is Weakness; Syncope and collapse; Rhabdomyolysis; Unspecified kidney failure - acute on chronic. Bed requested for Telemetry/MedSurg (Inpatient). Status is Inpatient Admission. Condition is Fair. Problem is new. Symptoms have improved. monika 10:16 10:16 06/28/2020 10:14 Hospitalization Ordered by Marcello Mo MD for Inpatient monika Admission. Preliminary diagnosis is Weakness; Syncope and collapse; Rhabdomyolysis; Unspecified kidney failure - acute on chronic; Type 1 diabetes mellitus. Bed requested for Telemetry/MedSurg (Inpatient). Status is Inpatient Admission. Condition is Fair. Problem is new. Symptoms have improved. monika 10:38 10:16 06/28/2020 10:14 Hospitalization Ordered by Marcello Mo MD for Observation. bd Preliminary diagnosis is Weakness; Syncope and collapse; Rhabdomyolysis; Unspecified kidney failure - acute on chronic; Type 1 diabetes mellitus. Bed requested for Telemetry/MedSurg (observation). Status is Observation. Condition is Fair. Problem is new. Symptoms have improved. monika 10:54 10:38 06/28/2020 10:14 Hospitalization Ordered by Marcello Mo MD for Observation. monika Preliminary diagnosis is Weakness; Syncope and collapse; Rhabdomyolysis; Unspecified kidney failure - acute on chronic; Type 1 diabetes mellitus. Bed requested for Telemetry/MedSurg (observation). Status is Observation. Condition is Fair. Problem is new. Symptoms have improved. bd 11:08 10:54 06/28/2020 10:14 Hospitalization Ordered by Marcello Mo MD for Inpatient bd Admission. Preliminary diagnosis is Weakness; Syncope and collapse; Rhabdomyolysis; Unspecified kidney failure - acute on chronic; Type 1 diabetes mellitus. Bed requested for Telemetry/MedSurg (Inpatient). Status is Inpatient Admission. Condition is Fair. Problem is new. Symptoms have improved. monika 11:55 11:08 06/28/2020 10:14 Hospitalization Ordered by Marcello Mo MD for Inpatient jl7 Admission. Preliminary diagnosis is Weakness; Syncope and collapse; Rhabdomyolysis; Unspecified kidney failure - acute on chronic; Type 1 diabetes mellitus. Bed requested for Telemetry/MedSurg (Inpatient). Status is Inpatient Admission. Condition is Fair. Problem is new. Symptoms have improved. bd
--- NOTE | 2020-06-28 10:15 | ER ---
Nurse's Notes [facility] Name: Traci Bennett Age: 85 yrs Sex: Female : 1935 Arrival Date: 06/28/2020 Time: 08:29 Bed 5 Private MD: Diagnosis: Weakness;Syncope and collapse;Rhabdomyolysis;Unspecified kidney failure-acute on chronic;Type 1 diabetes mellitus Presentation: 06/28 08:15 Chief complaint: EMS states: 85 F, A \T\ O x 4, was sitting at the kitchen table playing rb1 cards when she fell asleep and slid out of the chair landing on her buttocks around 1700 on 06/27/20 and was on the floor until this morning. Denies hitting head or LOC and pain. History of hypertension, bilateral knee replacements. She was unable to get up due to having bilateral knee replacements. Stroke assessment was negative. BP 173/105, P 70, 98% RA. Coronavirus screen: At this time, the client does not indicate any symptoms associated with coronavirus-19. Ebola Screen: Patient denies travel to an Ebola-affected area in the 21 days before illness onset. Initial Sepsis Screen: Does the patient meet any 2 criteria? No. Patient's initial sepsis screen is negative. Does the patient have a suspected source of infection? No. Patient's initial sepsis screen is negative. Risk Assessment: Do you want to hurt yourself or someone else? Patient reports no desire to harm self or others. Onset of symptoms was June 27, 2020. 08:15 Method Of Arrival: EMS: [facility] rb1 08:15 Acuity: PRICILA 3 rb1 Triage Assessment: 08:15 General: Appears in no apparent distress. comfortable, Behavior is calm, cooperative. rb1 Pain: Denies pain. Neuro: Level of Consciousness is awake, alert, obeys commands, Oriented to person, place, time, situation. Cardiovascular: Patient's skin is warm and dry. Respiratory: Airway is patent Respiratory effort is even, unlabored, Respiratory pattern is regular, symmetrical. GI: No signs and/or symptoms were reported involving the gastrointestinal system. : No signs and/or symptoms were reported regarding the genitourinary system. Historical: - Allergies: 08:15 Iodine; rb1 08:15 Lamisil; rb1 - Home Meds: 08:15 amlodipine 2.5 mg tab 1 tab once daily [Active]; B-12 [Active]; D-3 [Active]; rb1 gabapentin 300 mg Oral cap twice a day [Active]; carvedilol 12.5 mg Oral tab 1 tab 2 times per day [Active]; losartan 100 mg Oral tab 1 tab once daily [Active]; Novolin N 100 unit/mL Sub-Q susp 20 units before breakfast and 10 units before supper [Active]; Novolin R Sub-Q 5 units before breakfast and 10 units before supper [Active]; Osteo Bi-Flex Oral [Active]; pravastatin 20 mg Oral tab 1 tab once daily [Active]; Probiotic Oral [Active]; isosorbide [Active]; - PMHx: 08:15 Diabetes - IDDM; GERD; High Cholesterol; Hypertension; Hypothyroidism; ovarian cancer; rb1 - PSHx: 08:15 Adenoids; Cholecystectomy; Tonsillectomy; Appendectomy; Cancerous Polyp; Hysterectomy; rb1 prolapsed bladder repair; Left knee replacement; right knee replacement; - Immunization history:: Adult Immunizations up to date. - Social history:: Smoking status: Patient/guardian denies using. Screenin:15 Abuse screen: Denies threats or abuse. Nutritional screening: No deficits noted. rb1 Tuberculosis screening: No symptoms or risk factors identified. Fall Risk Fall in past 12 months (25 points). No secondary diagnosis (0 pts). IV access (20 points). Ambulatory Aid- None/Bed Rest/Nurse Assist (0 pts). Gait- Normal/Bed Rest/Wheelchair (0 pts) Mental Status- Oriented to own ability (0 pts). Total Vill[place] Fall Scale indicates High Risk Score (45 or more points). Fall prevention measures have been instituted. Side Rails Up X 2 Placed Close to Nursing Station 1:1 Attendant Assigned Frequent Obs/Assessments Occuring As available patient and family educated on Fall Prevention Program and Strategies. Assessment: 08:15 General: See triage assessment. rb1 08:15 Reassessment: Pt. went to CT. rb1 09:16 Reassessment: Patient appears in no apparent distress at this time. Patient and/or rb1 family updated on plan of care and expected duration. Pain level reassessed. Patient is alert, oriented x 3, equal unlabored respirations, skin warm/dry/pink. Patient denies pain at this time. 10:15 Reassessment: Patient appears in no apparent distress at this time. No changes from rb1 previously documented assessment. 11:09 Reassessment: Patient appears in no apparent distress at this time. Patient and/or rb1 family updated on plan of care and expected duration. Pain level reassessed. Patient is alert, oriented x 3, equal unlabored respirations, skin warm/dry/pink. 11:13 Reassessment: Tried to call report, unable to give report at this time. MATTHEW Alonso will rb1 have RAUL Freed call me back at my extension. 11:33 Reassessment: Gave report to RAUL Freed. Information from the SBAR was given. All rb1 questions asked and answered. Vital Signs: 08:15 BP 223 / 97; Pulse 85; Resp 17; Temp 97.0(TE); Pulse Ox 98% on R/A; Weight 69.85 kg; rb1 Height 5 ft. 7 in. (170.18 cm); Pain 0/10; 09:18 BP 171 / 79; Pulse 74; Resp 15; Pulse Ox 97% ; Pain 0/10; rb1 10:18 BP 180 / 93; Pulse 77; Resp 16; Pulse Ox 97% ; rb1 11:16 BP 186 / 92; Pulse 78; Resp 13; Temp 97.6(TE); Pulse Ox 97% on R/A; rb1 08:15 Body Mass Index 24.12 (69.85 kg, 170.18 cm) [facility] ED Course: 08:15 Arm band placed on right wrist. rb1 08:15 Patient has correct armband on for positive identification. Bed in low position. Call rb1 light in reach. Side rails up X 1. Placed in gown. monitor car operator on. Pulse ox on. NIBP on. Warm blanket given. 08:29 Patient arrived in ED. jl7 08:29 Clair Walker, RN is Primary Nurse. rb1 08:35 Triage completed. rb1 08:37 Anderson Collins MD is Attending Physician. monika 08:52 First set of blood cultures drawn. Inserted saline lock: 20 gauge in right antecubital rb1 area, using aseptic technique. ,using aseptic technique. IV initiated by KJ, baker head Blood collected. 10:13 Marcello Mo MD is Hospitalizing Provider. monika 11:50 No provider procedures requiring assistance completed. Patient admitted, IV remains in rb1 place. Administered Medications: 08:50 Drug: NS 0.9% 1000 ml Route: IV; Rate: 1 bolus; Site: right antecubital; rb1 10:00 Follow up: IV Status: Completed infusion; IV Intake: 1000ml jl7 08:50 Drug: NS 0.9% 1000 ml Route: IV; Rate: 125 ml/hr; Site: right antecubital; rb1 10:25 Drug: Rocephin 1 grams Route: IV; Rate: per protocol; Site: right antecubital; jl7 10:28 Follow up: IV Status: Completed infusion jl7 10:40 Follow up: Response: No adverse reaction rb1 10:25 Drug: NS 0.9% 1000 ml Route: IV; Rate: 1 bolus; Site: right antecubital; jl7 10:41 Follow up: IV Status: Infusion continued upon admission jl7 Intake: 10:00 IV: 1000ml; Total: 1000ml. jl7 Outcome: 10:14 Decision to Hospitalize by Provider. monika 11:50 Admitted to Med/surg accompanied by tech, via stretcher, room 224, with chart, Report rb1 called to RAUL Freed 11:50 Condition: stable 11:50 Instructed on the need for admit. 11:55 Patient left the ED. jl7 Signatures: Anderson Collins MD MD cha Barber, Rebecca, RN RN [facility] Riley Perry RN RN jl7 Corrections: (The following items were deleted from the chart) 08:58 08:52 Inserted saline lock: 20 gauge in right antecubital area, using aseptic rb1 technique. Blood collected. [facility] 11:15 10:15 Reassessment: Patient appears in no apparent distress at this time. rb1 rb1 11:15 10:15 Neuro: Level of Consciousness is awake, obeys commands, Oriented to person, rb1 rb1 11:15 10:15 Pain: Denies pain. rb1 rb1 12:23 11:16 BP 186 / 92; Pulse 78bpm; Resp 13bpm; Pulse Ox 97% RA; rb1 rb1
[2020-06-28] MEDS ORDERED: CEFTRIAXONE/SWI 1gm 1 GM/10 ML SYR ONE (10:30)
[2020-06-28 10:32] LABS: Protime INR 1.13
[2020-06-28 11:13] LABS: Urine Blood 2+ (NEG); Urine Glucose NEGATIVE (NEG); Urine Protein 3+ (NEG); Urine Specific Gravity 1.025 (1.005-1.030); Urine pH 5.5 (5.0-7.0)
--- NOTE | 2020-06-28 11:14 | RAD REPORT ---
EXAM DESCRIPTION: RAD - Knee Left 3 View - 06/28/2020 10:42 am CLINICAL HISTORY: PAIN, fall with knee pain COMPARISON: Knee Left 2 View dated 12/04/2016 FINDINGS: No fracture, dislocation or periosteal reaction.Total knee prosthesis in place. No radiogr aphic evidence for loosening. No acute bone or joint finding identifiable. No soft tissue abnormality . IMPRESSION: No acute finding of the [place] bone or left knee prosthesis.
[2020-06-28] MEDS ORDERED: MORPHINE 2 MG/ML SYR IV PRN (11:36)
[2020-06-28] MEDS: INSULIN -REGULAR HUMAN 50 UNIT/0.5 ML ML SQ SCH ×3 (11:36→21:27)
[2020-06-28] MEDS ORDERED: GLUCAGON 1 MG/VIAL IM PRN (11:36)
[2020-06-28] MEDS ORDERED: ACETAMINOPHEN 500 MG TAB PO PRN (11:36)
[2020-06-28] MEDS ORDERED: D50W 25 GM/50 ML SYRINGE/VIAL IV PRN (11:36)
[2020-06-28] MEDS ORDERED: ONDANSETRON 4 MG/2 ML VIAL IV PRN (11:36)
[2020-06-28 12:14] VITALS: BMI 24.1
[2020-06-28] MEDS: NA CHLORIDE 0.9% 1,000 ML IV SCH ×2 (12:14→19:36)
[2020-06-28] MEDS: cloNIDine HCL 0.1 MG TAB PO PRN (14:19)
[2020-06-28] MEDS ORDERED: FAMOTIDINE 20 MG/2 ML VIAL IV SCH (21:00)
[2020-06-28] MEDS ORDERED: NA CHLORIDE 0.9% 1,000 ML IV SCH (21:19)
[2020-06-29 05:42] LABS: Absolute Lymphocytes (CBC) 1.9 K/uL (0.7-4.9); Basophils % 0.9 % (0-1.3); Lymphocytes % 21.7 % (15.3-44.8); MPV 10.2 fL (7.6-11.3); RBC Red Blood Cell Count 4.75 M/uL (3.86-4.86)
[2020-06-29 06:05] LABS: Potassium 3.6 mmol/L (3.5-5.1)
--- NOTE | 2020-06-29 07:21 | EKG ---
Test Date: 2020-06-28 Test Time: 08:44:34 Carton Liner: GRECIA MEASUREMENT RESULTS: Intervals: Rate: 76 NH: 162 QRSD: 92 QT: 434 QTc: 488 [place]: P: 69 NH: 162 QRS: -7 T: 60 INTERPRETIVE STATEMENTS: Sinus rhythm with marked sinus arrhythmia Anteroseptal infarct, age undetermined Abnormal ECG Compared to ECG 04/19/2020 13:11:24 No significant changes Electronically Signed On 06-29-20 07:19:44 CDT by Mio Zabala
[2020-06-29] MEDS: INSULIN -REGULAR HUMAN 50 UNIT/0.5 ML ML SQ SCH ×4 (07:30→21:18)
[2020-06-29] MEDS: cloNIDine HCL 0.1 MG TAB PO PRN ×3 (08:06→21:18)
[2020-06-29] MEDS: ISOSORBIDE MONO SR 30 MG TAB PO SCH (08:07)
[2020-06-29] MEDS: carvediloL 25 MG TAB PO SCH ×2 (08:07→21:16)
[2020-06-29] MEDS: ASPIRIN EC 81 MG TAB PO SCH (08:07)
[2020-06-29] MEDS: LOSARTAN POTASSIUM 50 MG TABLET PO SCH (08:07)
[2020-06-29] MEDS: ENOXAPARIN 30 MG/0.3 ML SQ SCH (08:08)
--- NOTE | 2020-06-29 11:49 | RAD REPORT ---
EXAM DESCRIPTION: MRI - Brain Wo Cont - 06/29/2020 11:06 am CLINICAL HISTORY: weakness, falls Headache, drowsiness, falls COMPARISON: No comparisons TECHNIQUE: Multi-sequence, multiplanar MR imaging of the brain was performed without contrast. FINDINGS: No intracranial hemorrhage, hydrocephalus or extra-axial fluid collections.Moderate genera lized brain atrophy is present. No edema or shift of midline structures. No findings to suspect brain mass. Small areas of diffusion restriction are seen in the basal ganglia bilaterally, on the right m easuring 7 mm and on the left measuring 8 mm and 10 mm. Subtle reduction in ADC signal is seen as wel l involving these 2 regions. This is compatible with small acute bilateral lacunar infarcts. No hemor rhage is seen. Midline structures are normally formed. Mastoid air cells and paranasal sinuses are clear. IMPRESSION: Small, bilateral acute nonhemorrhagic lacunar infarcts as detailed.
--- NOTE | 2020-06-29 13:00 | EKG ---
Test Date: 2020-06-28 Test Time: 22:00:02 Sign Installer: RT-O MEASUREMENT RESULTS: Intervals: Rate: 80 AK: 158 QRSD: 92 QT: 408 QTc: 470 [place]: P: 56 AK: 158 QRS: 0 T: 75 INTERPRETIVE STATEMENTS: Sinus rhythm with sinus arrhythmia with occasional and consecutive premature ventricular complexes Anteroseptal infarct, age undetermined Abnormal ECG Compared to ECG 06/28/2020 08:44:34 Ventricular premature complex(es) now present Myocardial infarct finding still present Electronically Signed On 06-29-20 12:59:12 CDT by Mio Zabala
[2020-06-29] MEDS: CLOPIDOGREL 75 MG TABLET PO SCH (16:54)
[2020-06-29] MEDS ORDERED: FAMOTIDINE 20 MG TAB PO SCH (21:00)
--- NOTE | 2020-06-29 21:23 | P.PN ---
Subjective Date of Service: 06/29/20 Chief Complaint: SHE FEELS BETTER SHE WHILE TELLING ME WHAT HAPPENED KEPT ON REPEATING THE SAME ANSWER. I FIND HER SLOWER THAN HER USUAL SELF IN RESPONSE AND SOMEWHAT DISORIENTED. Review of Systems 10-point ROS is otherwise unremarkable Physical Examination - Vital Signs Temperature: 97.4 F Blood Pressure: 150/70 Pulse: 67 Respirations: 18 Pulse Ox (%): 98 - Physical Exam General: Mild distress HEENT: Atraumatic, PERRLA, EOMI Neck: Supple, JVD not distended Respiratory: Clear to auscultation bilaterally, Normal air movement Cardiovascular: Regular rate/rhythm, Normal S1 S2 Gastrointestinal: Normal bowel sounds, No tenderness Musculoskeletal: No tenderness Integumentary: No rashes Neurological: Normal strength at 5/5 x4 extr, Normal tone, Cranial nerves 3-12 intact, Other (ORIENTED TO TIME AND PLACE, PERSON. ), Abnormal speech (SLOW AND HAS SOME ANOMIA. ), Abnormal reflexes (ABSENT PLANTER. ) Lymphatics: No axilla or inguinal lymphadenopathy - Studies Medications List Reviewed: Yes Assessment And Plan - Current Problems (Diagnosis) (1) Altered mental status Current Visit: Yes Status: Acute Plan: I SUSPECTED SHE HAD CVA AND THAT IS WHY SHE WAS GENERALLY WEAK AT HOME. SHE IS SLIGHTLY DISORIENTED COMPARED TO HER USUAL, TALKATIVE STATUS. I ORDERED MRI THAT WAS DONE THIS AM. 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 I ORDERED CAROTID DOPPLER, ECHOCARDIOGRAM. STARTED HER ON PLAVIX. 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 (2) Cerebral multi-infarct state Current Visit: Yes Status: Acute (3) Diabetes Current Visit: No Status: Chronic Plan: SHE HAS HAD USUALLY WELL CONTROLLED DM. I WILL CHECK A1C AND LDL. Qualifiers: Diabetes mellitus type: type 2 Diabetes mellitus complication status: with neurologic complications
[2020-06-30] MEDS: cloNIDine HCL 0.1 MG TAB PO PRN ×2 (04:35→08:07)
[2020-06-30] MEDS: INSULIN -REGULAR HUMAN 50 UNIT/0.5 ML ML SQ SCH ×2 (07:30→12:07)
[2020-06-30 07:48] LABS: HDL Cholesterol 38 mg/dL (40-60); LDL, Direct 66 mg/dL (100-129)
[2020-06-30] MEDS: LOSARTAN POTASSIUM 50 MG TABLET PO SCH (08:08)
[2020-06-30] MEDS: CLOPIDOGREL 75 MG TABLET PO SCH (08:08)
[2020-06-30] MEDS: ASPIRIN EC 81 MG TAB PO SCH (08:08)
[2020-06-30] MEDS: ISOSORBIDE MONO SR 30 MG TAB PO SCH (08:08)
[2020-06-30] MEDS: carvediloL 25 MG TAB PO SCH (08:08)
[2020-06-30] MEDS: ENOXAPARIN 30 MG/0.3 ML SQ SCH (08:09)
[2020-06-30 09:11] VITALS: O2SAT 95
--- NOTE | 2020-06-30 09:43 | RAD REPORT ---
EXAM DESCRIPTION: USCarotid Artery Adwamypth23/29/2020 9:26 am CLINICAL HISTORY: cva COMPARISON: None FINDINGS: The velocity of the right internal carotid artery equals 72 cm/sec. The right ICA/CCA rati o 1.2 The velocity of the left internal carotid artery equals 119 cm/sec. The left ICA/CCA ratio 1.4 Mild to moderate plaque is present within the right internal carotid artery. Mild plaque is present i n the left internal carotid artery Moderate stenosis right external carotid artery The vertebral arteries demonstrate antegrade flow IMPRESSION: Mild to moderate plaque within the right internal carotid artery without evidence of a h emodynamically significant stenosis NASCET criteria used. Mild 0-49% stenosis Moderate 50-69% stenosis Severe 70-99% stenosis
[2020-06-30] MEDS ORDERED: D50W 25 GM/50 ML SYRINGE/VIAL IV PRN (12:53)
[2020-06-30] MEDS ORDERED: GLUCAGON 1 MG/VIAL IM PRN (12:53)
[2020-06-30 13:32] VITALS: BP 144/67; TEMP 97.2
[2020-06-30] MEDS ORDERED: INSULIN 70/30 100 UNITS/ML SQ SCH (16:30)
--- NOTE | 2020-06-30 21:04 | P.DS ---
Admission Date: 06/28/20 Discharge Date: 06/30/20 Disposition: TRANSFER TO INPATIENT REHAB Reason for Admission: SHE FEELS BETTER - Problems (1) Altered mental status Status: Acute (2) Cerebral multi-infarct state Status: Acute (3) Diabetes Status: Chronic Qualifiers: Diabetes mellitus type: type 2 Diabetes mellitus complication status: with neurologic complications Hospital Course: MS. CASTANEDA HAD FALLEN AT HOME AND CAME WEAK HERE. SHE DID NOT HAVE FOCAL DEFICIT BUT SHE SEEMED SLOW TO REPSOND AND KEPT ON REPEATING ANSWERS. I ORDERED MRI AND FOUND THAT SHE HAD INFARCTS IN THE BRAIN, MOST LIKE PRESENT FROM ADMISSION. SHE NOW IS TRANSFERRED TO REHAB FOR PT. Vital Signs/Physical Exam: Temp Pulse Resp BP Pulse Ox 97.2 F 52 17 144/67 H 94 06/30/20 12:00 06/30/20 12:00 06/30/20 12:00 06/30/20 12:00 06/30/20 12:00 Laboratory Data at Discharge: WBC 8.9 K/uL (4.3-10.9) D 06/29/20 05:12 Hgb 13.4 g/dL (12.0-15.0) 06/29/20 05:12 Hct 41.0 % (36.0-45.0) 06/29/20 05:12 Plt Count 158 K/uL (152-406) 06/29/20 05:12 PT 13.3 SECONDS (9.5-12.5) H 06/28/20 10:19 INR 1.13 06/28/20 10:19 Sodium 143 mmol/L (136-145) 06/29/20 05:12 Potassium 3.6 mmol/L (3.5-5.1) 06/29/20 05:12 BUN 26 mg/dL (7-18) H 06/29/20 05:12 Creatinine 1.17 mg/dL (0.55-1.3) 06/29/20 05:12 Glucose 155 mg/dL (74-106) H 06/29/20 05:12 Magnesium 2.0 mg/dL (1.8-2.4) 06/28/20 08:52 Total Bilirubin 1.7 mg/dL (0.2-1.0) H 06/28/20 08:52 AST 35 U/L (15-37) 06/28/20 08:52 ALT 25 U/L (12-78) 06/28/20 08:52 Alkaline Phosphatase 64 U/L (45-117) 06/28/20 08:52 Troponin I 0.04 ng/mL (0.0-0.045) 06/28/20 17:12 Triglycerides 154 mg/dL (<150) H 06/30/20 05:37 Cholesterol 122 mg/dL (<200) 06/30/20 05:37 LDL Cholesterol Direct 66 mg/dL (100-129) L 06/30/20 05:37 HDL Cholesterol 38 mg/dL (40-60) L 06/30/20 05:37 Cholesterol/HDL Ratio 3.21 06/30/20 05:37 Lipase 92 U/L (73-393) 06/28/20 08:52 Home Medications: Carvedilol [Coreg] 25 mg PO BID 06/28/20 Isosorbide Dinitrate 30 mg PO DAILY 06/28/20 Losartan Potassium 100 mg PO DAILY 06/28/20 Acetaminophen 500 mg PO Q6H PRN 06/30/20 Aspirin [Aspirin EC 81 MG] 81 mg PO DAILY 06/30/20 Clonidine HCl [Catapres] 0.1 mg PO Q4H PRN 06/30/20 Clopidogrel Bisulfate [Plavix] 75 mg PO DAILY 06/30/20 Famotidine [Pepcid] 20 mg PO 2100 06/30/20 Insulin 70/30 NPH/Reg Human [Novolin 70/30*] 15 unit SQ BIDAC 06/30/20 Followup: Unknown,U [Primary Care Provider] -
--- NOTE | 2020-07-01 08:13 | ECHO ---
HEIGHT: 5 ft 7 in WEIGHT: 154 lb 0 oz DATE OF STUDY: 06/30/[address]: Marcello Mo MD 2-DIMENSIONAL: YES M.MODE: YES DOPPLER: NO COLOR FLOW: NO TDS: PORTABLE: DEFINITY: BUBBLE STUDY: DIAGNOSIS: INFARCT CARDIAC HISTORY: CATHERIZATION: SURGERY: PROSTHETIC VALVE: PACEMAKER: MEASUREMENTS (cm) DIASTOLIC (NORMALS) SYSTOLIC (NORMALS) IVSd 1.2 (0.6-1.2) LA Diam 3.0 (1.9-4.0) LVEF 64% LVIDd 3.1 (3.5-5.7) LVIDs 2.1 (2.0-3.5) %FS 33% LVPWd 1.3 (0.6-1.2) Ao Diam 2.7 (2.0-3.7) 2 DIMENSIONAL ASSESSMENT: RIGHT ATRIUM: NORMAL LEFT ATRIUM: ENLARGED RIGHT VENTRICLE: NORMAL LEFT VENTRICLE: LEFT VENTRICULAR HYPERTROPHY (MILD) TRICUSPID VALVE: NORMAL MITRAL VALVE: CALCIFIED PULMONIC VALVE: NORMAL AORTIC VALVE: NORMAL PERICARDIAL EFFUSION: NONE AORTIC ROOT: NORMAL LEFT VENTRICULAR WALL MOTION: FOCUSED DOPPLER/COLOR FLOW: FOCUSED COMMENTS: FOCUSED ECHO ONLY. LEFT VENTRICULAR EJECTION FRACTION 55-60% WITH NORMAL WALL MOTION. HEAVILY CALCIFIED MITRAL VALVE, RECOMMEND DOPPLER TO EVALUATE FOR MITRAL STENOSIS. TECHNOLOGIST: MORRO HULL
--- NOTE | 2020-07-06 21:06 | P.HP ---
Certification for Inpatient Patient admitted to: Inpatient With expected LOS: >2 Midnights Practitioner: I am a practitioner with admitting privileges, knowledge of patient current condition, hospital course, and medical plan of care. Services: Services provided to patient in accordance with Admission requirements found in Title 42 Section 412.3 of the Code of Federal Regulations Patient History Date of Service: 07/06/20 Reason for admission: GOT WEAK AND FELL AT HOME History of Present Illness: MS. CASTANEDA AT HOME GOT WEAK, STAYED ON FLOOR, WAS BROUGHT TO ER. I TALKED TO HER AND SHE WAS VERY SLOW TO RESPOND AND NOT HER USUAL SPUNKY IN TALKING. SHE TOOK TIME TO ANSWER AND DID RECOGNIZE ME. SHE DID NOT RECALL EXACTLY WHAT HAPPENED AT HOME. Allergies terbinafine HCl [From Lamisil] Allergy (Severe, Verified 03/03/19 11:21) Hives iodine Allergy (Unknown, Verified 03/03/19 11:21) blisters, skin peeled Home Medications: Carvedilol [Coreg] 25 mg PO BID 06/28/20 Isosorbide Dinitrate 30 mg PO DAILY 06/28/20 Losartan Potassium 100 mg PO DAILY 06/28/20 Acetaminophen 500 mg PO Q6H PRN 06/30/20 Aspirin [Aspirin EC 81 MG] 81 mg PO DAILY 06/30/20 Clonidine HCl [Catapres] 0.1 mg PO Q4H PRN 06/30/20 Clopidogrel Bisulfate [Plavix] 75 mg PO DAILY 06/30/20 Famotidine [Pepcid] 20 mg PO 2100 06/30/20 Insulin 70/30 NPH/Reg Human [Novolin 70/30*] 15 unit SQ BIDAC 06/30/20 Thyroid 60 mg PO DAILY 07/01/20 - Past Medical/Surgical History Has patient received pneumonia vaccine in the past: Yes Diabetic: Yes -: HTN. -: IDDM - Social History Smoking Status: Never smoker Alcohol use: No CD- Drugs: No Caffeine use: Yes Place of Residence: Home Review of Systems General: Weakness, As per HPI Physical Examination - Vital Signs Temperature: 97.2 F Blood Pressure: 144/67 Pulse: 52 Respirations: 17 Pulse Ox (%): 94 - Physical Exam General: Mild distress, Confused (MILD TO MOD.) HEENT: Atraumatic, PERRLA, Mucous membr. moist/pink, EOMI, Sclerae nonicteric Neck: Supple, 2+ carotid pulse no bruit, No LAD, Without JVD or thyroid abnormality Respiratory: Clear to auscultation bilaterally, Normal air movement Cardiovascular: Regular rate/rhythm, Normal S1 S2 Gastrointestinal: Normal bowel sounds, No tenderness Musculoskeletal: No tenderness Integumentary: No rashes Neurological: Normal speech (BUT SLOW.), Abnormal strength (GEN WEAK.) Lymphatics: No axilla or inguinal lymphadenopathy Assessment and Plan - Problems (Diagnosis) (1) Altered mental status Status: Acute Plan: I SUSPECTED SHE HAD CVA AND THAT IS WHY SHE WAS GENERALLY WEAK AT HOME. SHE IS SLIGHTLY DISORIENTED COMPARED TO HER USUAL, TALKATIVE STATUS. I ORDERED MRI THAT WAS DONE THIS AM. 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 I ORDERED CAROTID DOPPLER, ECHOCARDIOGRAM. STARTED HER ON PLAVIX. 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 I WILL CHECK A1C AND LDL. Qualifiers: Diabetes mellitus type: type 2 - Advance Directives Does patient have a Living Will: No Does patient have a Durable POA for Healthcare: No
== END 2020-06-30 15:20 | DRG 66 ==
LOC: ER 08:27 → ERHOLD 10:19 → 2ND 11:34
PROVIDERS: ADMIT Internal Medicine; ATTEND Internal Medicine
DX: I63.9 Cerebral infarction, unspecified (principal); K21.9 Gastro-esophageal reflux disease without esophagitis; I10 Essential (primary) hypertension; E11.49 Type 2 diabetes mellitus with other diabetic neurological complication; W07.XXXA Fall from chair, initial encounter; Z96.653 Presence of artificial knee joint, bilateral; Z91.048 Other nonmedicinal substance allergy status; Z79.4 Long term (current) use of insulin; Z79.899 Other long term (current) drug therapy; Z85.43 Personal history of malignant neoplasm of ovary; Z90.49 Acquired absence of other specified parts of digestive tract; Z90.710 Acquired absence of both cervix and uterus; Z79.82 Long term (current) use of aspirin; Z79.02 Long term (current) use of antithrombotics/antiplatelets; Z20.828 Contact with and (suspected) exposure to other viral communicable diseases
CPT/HCPCS: 36415; 70450; 70551; 71045; 71250; 72125; 80048; 80061; 80076; 81003; 82550; 82553; 82947; 83036; 83605; 83690; 83735; 83880; 84439; 84443; 84484; 85025; 85610; 87040; 87077; 87086; 87088; 87186; 93005; 93307; 93880; 96361; 96374; 97112; 97116; 97161; 97530; 99285; J0696; J1650; J7030; U0002

== ENCOUNTER 2020-06-30 11:19 | Inpatient (IN) | payer OTHER, MEDICARE ==
--- NOTE | 2020-06-30 14:01 | R.PREADM ---
PRE-ADMISSION SCREENING FORM SCREENING DATE AND TIME 06/30/2020 11:31 (CDT) ANTICIPATED REHAB ADMISSION DATE 07/02/2020 REFERRING FACILITY [facility] REFERRAL DATE AND TIME 06/30/2020 11:32 (CDT) REFERRAL ROOM# 224 ACUTE ADMIT DATE 06/28/2020 Previous Rehabilitation(s): No. REFERRING PHYSICIAN DR. SUSAN LOPEZ REHAB FACILITY [facility] CLINICAL LIAISON Ruthann Dumont RN PHYSICIAN REVIEWER Dr. Sabino Jiang M.D. MR# [id number] NAME BAILEE CASTANEDA ADDRESS [address] [place] [address] DATE OF 1935 AGE 85 SSN# [id number] GENDER female MARITAL STATUS RACE white ADMIT FROM 02 - [facility] PRE-HOSPITAL LIVING SETTING 01 - Home (private home/apt. board/care, assisted living, fpc, transitional living) HOME TYPE AND DETAILS Type of home: single family house # of levels in the residence: 1 # of steps within the residence: 0 # of steps to enter the residence: 0 PRE-HOSPITAL LIVING WITH Alone FAMILY SUPPORT Limited PRIMARY FAMILY CONTACT NAME AUGUSTINE DILLON PRIMARY FAMILY CONTACT PHONE PRIMARY FAMILY CONTACT ALT. PHONE PRIMARY FAMILY CONTACT RELATIONSHIP DAUGHTER PHONE PRIMARY FAMILY CONTACT ON ADM.? no IS PRIMARY FAMILY CONTACT AUTH. REP.? no 1ST EMERGENCY CONTACT AUGUSTINE DILLON 1ST CONTACT PHONE 1ST CONTACT ALT. PHONE 1ST CONTACT RELATIONSHIP DAUGHTER PHONE 1ST CONTACT ON ADM. no IS 1ST CONTACT AUTH. REP.? no PHONE 2ND CONTACT ON ADM.? no PATIENT EMPLOYMENT STATUS Retired (for age) PATIENT EMPLOYER No Employer PAYOR INFORMATION: 1ST PAYOR NAME Medicare 1ST PAYOR PHONE 1ST PAYOR INJURY/ILLNESS DUE TO ACCIDENT? No ANOTHER CONSTITUTION PARTY RESPONSIBLE? No PRIMARY REHAB/ACUTE DIAGNOSIS: Bilateral acute non-hemorrhagic lacunar infarcts ONSET DATE 06/28/2020 REHAB IMPAIRMENT CATEGORY (NATY): 01 Stroke (STR) MEETS 60% rule AFFECTED EXTREMITIES: BLE, and BUE PRIMARY DIAGNOSIS-RELATED SURGERIES: Emergency Stroke(Bilateral) - performed by DR. SUSAN LOPEZ on 06/28/2020 SUMMARY OF ACUTE HOSPITALIZATION: Pt. is a 85 yo Right-handed white female. On 06/28/2020 Pt. presented to [facility] with sudden onset of bilateral weakne ss. On 06/28/2020 she was admitted to [facility] and underwent emergency surgery fo r Bilateral acute non-hemorrhagic lacunar infarcts (Stroke(Bilateral)) by DR. SUSAN LOPEZ. Pre-morbidly, Pt. was independent/mod-I in Transfers Control, Locomotion, Self-Care, Social Cognition , Sphincter Control, and Communication; and she had good Balance and Safety Awareness. Currently, she has deficits of Transfers Control, Balance, Locomotion, Safety Awareness, and Self-Car e. Pt. is now referred to [facility] for acute in-patient rehabilitation in order to maximize patient's functional independence in activities of daily living, strength, ROM, and mobi lity. Patient has realistic goal of being discharged at assistance level 6-Alexandra to reside at Home with Pt self. PAST MEDICAL HISTORY Osteoarthritis of L knee DIABETES GERD Pure hypercholesterolemia (E78.0) HTN Hypothyroidism, unspecified (E03.9) ovarian cancer PAST SURGICAL HISTORY: Cholecystectomy Tonsillectomy APPENDECTOMY Cancer Polyp HYSTERECTOMY Prolapsed Bladder sx MEDICATION ALLERGIES: terbinafine HCI Iodine ENVIRONMENTAL ALLERGIES: - Substance Allergies None Known - Other Allergies None Known CODE STATUS: Full code WEIGHT/HEIGHT/BMI: WEIGHT 154 lbs HEIGHT 5' 7" BMI 24.1 DIET: - Diet Type Regular - Diet - Solid Texture Regular - Diet - Liquid Texture Regular - Tube Feed N/A REVIEW OF SYSTEMS: - Gen Alert and awake Lying in bed No apparent distress Oriented to: person, time, and place - Vital Signs Vital signs stable, afebrile - CVS RRR VITAL SIGNS Temperature: 97.5 F SBP/DBP: 157/62 Pulse: 58 Resp: 18 Vital signs stable, afebrile MEDICATIONS/TREATMENT: Other- See attached MAR (Medication Administration Record). CURRENT SPHINCTER CONTROL: Pre-hospital bladder status: continent # of bladder accidents in the last 7 days prior to screenin Pre-hospital bowel status: continent # of bowel accidents in the last 7 days prior to screenin Last Bowel Movement Date: 06/30/2020 DETAILED CURRENT FUNCTIONAL STATUS: - Walking score based on distance walked: 3(>=150ft) QI SCORES: - Self-Care A. Eating 05-Setup or clean-up assistance B. Oral hygiene 05-Setup or clean-up assistance C. Toileting hygiene 04-Supervision or touching assistance E. Shower/bathe self 10-Not attempted due to environmental limitations F. Upper body dressing 04-Supervision or touching assistance G. Lower body dressing 88-Not attempted due to medical condition or safety concerns H. Putting on/taking off footwear 88-Not attempted due to medical condition or safety concerns - Mobility A. Roll left and right 04-Supervision or touching assistance B. Sit to lying 04-Supervision or touching assistance C. Lying to sitting on side of bed 04-Supervision or touching assistance D. Sit to stand 04-Supervision or touching assistance E. Chair/ekk-zi-hkwcz transfer 04-Supervision or touching assistance F. Toilet transfer 04-Supervision or touching assistance G. Car transfer 88-Not attempted due to medical condition or safety concerns I. Walk 10 feet 04-Supervision or touching assistance J. Walk 50 feet with two turns 04-Supervision or touching assistance K. Walk 150 feet 04-Supervision or touching assistance L. Walking 10 feet on uneven surfaces 88-Not attempted due to medical condition or safety concerns M. 1 step (curb) 88-Not attempted due to medical condition or safety concerns N. 4 steps 88-Not attempted due to medical condition or safety concerns O. 12 steps 88-Not attempted due to medical condition or safety concerns P. Picking up object 88-Not attempted due to medical condition or safety concerns - Bladder and Bowel Bladder continence 0-Always continent Bowel continence 0-Always continent - Endurance Fair - Balance Fair - Safety Awareness Poor CURRENT FUNC. DEFICITS: Self-Care, Mobility, Endurance, Balance, and Safety Awareness CURRENT / PREVIOUS ASSISTIVE DEVICES: Tub Bench HISTORY OF FALLS. HAS THE PATIENT HAD TWO OR MORE FALLS IN THE PAST YEAR OR ANY FALL WITH INJURY IN T HE PAST YEAR?: No PRIOR SURGERY. DID THE PATIENT HAVE MAJOR SURGERY DURING THE 100 DAYS PRIOR TO ADMISSION?: No THERAPY NOTES FROM ACUTE CARE: Attached. SPECIAL NEEDS: - Safety Concerns Skin breakdown precautions needed due to skin breakdown risk PRECAUTIONS: - Weight Bearing Precaution WBAT both LE PATIENT NEEDS ACTIVE AND ONGOING THERAPEUTIC INTERVENTION OF MULTIPLE THERAPY DISCIPLINES, INCLUDING: - Occupational Therapy Cognitive Retraining. Visual Perceptual Training. - Dietary and Nutrition Adequate Nutrition. Nutritional Education. Nutritional Supplements. - Speech Therapy Cognitive Training. Expressive Language Skills. Memory Strategies. Receptive Language Skills. Speech Intelligibility Training. PATIENT NEEDS CLOSE MEDICAL SUPERVISION BY A REHABILITATION PHYSICIAN FOR: Coordination of Treatment Team Post-Op Complications PATIENT REQUIRES 24X7 REHAB NURSING FOR MEDICAL AND FUNCTIONAL MGT. OF THE FOLLOWING DEFICITS: Disease Management Medication Management Patient/Family Education Providing Safe Environment PATIENT REQUIRES INTENSIVE, COORDINATED INTERDISCIPLINARY APPROACH TO REHAB: Arranging Home Equipment/Services Discharge Planning Family Intervention/Training Garment Sewer Hand/Case Management PATIENT REHAB POTENTIAL: Valentina CASTANEDA is able and expected to receive 3 hours of individualized therapy daily on at least 5 of malorie ry 7 days Valentina CASTANEDA's prognosis for significant practical improvement within a reasonable period of time appears Good Expected level of measurable improvement will be of a practical value to Valentina CASTANEDA's functional capaci ty or adaptations to impairments Has a viable Discharge Plan Medically appropriate; condition is sufficiently stable to participate in intensive rehab program DISCHARGE PLAN: - Estimated Length of Stay (days) 17. - Consensus on plan Discharge plan has been discussed with primary caregiver. Patient/Family is in agreement with the francisco n. Primary caregiver is in agreement with the plan. - Patient/Family Goals Return home independently. - Planned Living Setting Upon Discharge Primary caregiver: Pt self. RECOMMENDED CARE LEVEL: IRF RECOMMENDATION DETAILS: Recommended Admission to Comprehensive Rehabilitation Program to Increase Functional [place] SCREENER'S COMPLETENESS CONFIRMATION: - Screening Confirmation The patient data collection on this preadmission screening form is finished PHYSICIANS REVIEW AND ADMISSION DETERMINATION Admit - Based on my review of the Pre-Admission Screening results, in my medical judgment and experie nce, I concur with the findings and recommend admission to [facility], as this patient requires an IRF level of care. SIGNATURE PANEL: Travel Services Professional - [electronically] signed by Jaymie Mayer Applications Consultant on 06/30/2020 at 12:38 (CD T) Clinical Liaison - [electronically] signed by Ruthann Dumont RN on 06/30/2020 at 13:16 (CDT) Physician Reviewer - [electronically] signed by Dr. Sabino Jiang M.D. on 06/30/2020 at 14:00 (CDT )
[2020-06-30] MEDS ORDERED: D50W 25 GM/50 ML SYRINGE/VIAL IV PRN (16:57)
[2020-06-30] MEDS ORDERED: GLUCAGON 1 MG/VIAL IM PRN (16:57)
[2020-06-30] MEDS ORDERED: ACETAMINOPHEN 500 MG TAB PO PRN (18:11)
[2020-06-30] MEDS ORDERED: MORPHINE 2 MG/ML SYR IV PRN (18:12)
[2020-06-30] MEDS ORDERED: ONDANSETRON 4 MG/2 ML VIAL IV PRN (18:15)
[2020-06-30] MEDS: cloNIDine HCL 0.1 MG TAB PO PRN (19:23)
[2020-06-30] MEDS: ENOXAPARIN 30 MG/0.3 ML SQ SCH (20:00)
[2020-06-30] MEDS: FAMOTIDINE 20 MG TAB PO SCH (20:07)
[2020-06-30] MEDS: carvediloL 25 MG TAB PO SCH (20:08)
[2020-06-30] MEDS: INSULIN -REGULAR HUMAN 50 UNIT/0.5 ML ML SQ SCH (20:09)
[2020-06-30 22:26] LABS: Urine Appearance CLEAR; Urine Bilirubin NEGATIVE (NEG); Urine Blood NEGATIVE (NEG); Urine Color YELLOW; Urine Glucose 2+ (NEG); Urine Protein TRACE (NEG); Urine Urobilinogen 0.2 mg/dL (0.2-1.0)
[2020-06-30 23:02] LABS: Urine Bacteria >50 /HPF (<20); Urine Culture Reflex Order NOT NEEDED; Urine Mucus 1+ /HPF (NONE SEEN); Urine RBC <5 /HPF (NONE SEEN)
[2020-07-01] MEDS: cloNIDine HCL 0.1 MG TAB PO PRN (02:48)
[2020-07-01 06:28] LABS: Absolute Lymphocytes (CBC) 1.6 K/uL (0.7-4.9); Basophils % 0.8 % (0-1.3); Hematocrit 38.9 % (36.0-45.0); Lymphocytes % 29.3 % (15.3-44.8); MPV 9.8 fL (7.6-11.3); RBC Red Blood Cell Count 4.54 M/uL (3.86-4.86)
[2020-07-01 06:45] LABS: Albumin 2.8 g/dL (3.4-5.0); Magnesium 1.7 mg/dL (1.8-2.4); Potassium 4.1 mmol/L (3.5-5.1); Prealbumin 15.2 mg/dL (20-40)
[2020-07-01] MEDS: ENOXAPARIN 30 MG/0.3 ML SQ SCH (07:02)
[2020-07-01] MEDS: INSULIN -REGULAR HUMAN 50 UNIT/0.5 ML ML SQ SCH ×4 (07:30→20:35)
[2020-07-01] MEDS: LOSARTAN POTASSIUM 50 MG TABLET PO SCH (07:37)
[2020-07-01] MEDS: ISOSORBIDE MONO SR 30 MG TAB PO SCH (07:37)
[2020-07-01] MEDS: ASPIRIN EC 81 MG TAB PO SCH (07:37)
[2020-07-01] MEDS: carvediloL 25 MG TAB PO SCH ×2 (07:38→20:35)
[2020-07-01] MEDS: CLOPIDOGREL 75 MG TABLET PO SCH (07:39)
[2020-07-01] MEDS: INSULIN 70/30 100 UNITS/ML SQ SCH ×2 (07:40→17:25)
[2020-07-01] MEDS ORDERED: ONDANSETRON 4 MG (ODT) TAB PO PRN (09:45)
[2020-07-01] MEDS ORDERED: TRAMADOL HCL 50 MG TAB PO PRN (09:46)
[2020-07-01] MEDS ORDERED: cloNIDine HCL 0.1 MG TAB PO PRN (09:48)
--- NOTE | 2020-07-01 09:51 | P.RH.PN ---
Estimated Length of Stay: 14 Expected Discharge Date: 07/14/20 Discharge Disposition Plan: Home Family Support: Yes Intermediate Goal: Mobility, Transfers, Self Care Vital Signs: Last Vital Signs Temp 97.3 F 07/01/20 08:00 Pulse 52 07/01/20 08:00 Resp 16 07/01/20 08:00 BP 124/48 L 07/01/20 08:00 Pulse Ox 95 07/01/20 08:00 Laboratory: Laboratory Last Values WBC 5.6 K/uL (4.3-10.9) D 07/01/20 06:15 RBC 4.54 M/uL (3.86-4.86) 07/01/20 06:15 Hgb 13.0 g/dL (12.0-15.0) 07/01/20 06:15 Hct 38.9 % (36.0-45.0) 07/01/20 06:15 MCV 85.8 fL (80-100) 07/01/20 06:15 MCH 28.6 pg (27.0-35.0) 07/01/20 06:15 MCHC 33.4 g/dL (32.0-36.0) 07/01/20 06:15 RDW 15.1 % (12.1-15.2) 07/01/20 06:15 Plt Count 147 K/uL (152-406) L 07/01/20 06:15 MPV 9.8 fL (7.6-11.3) 07/01/20 06:15 Neutrophils % 55.9 % (41.7-73.7) 07/01/20 06:15 Lymphocytes % 29.3 % (15.3-44.8) 07/01/20 06:15 Monocytes % 10.2 % (3.3-12.3) 07/01/20 06:15 Eosinophils % 3.8 % (0-4.4) 07/01/20 06:15 Basophils % 0.8 % (0-1.3) 07/01/20 06:15 Absolute Neutrophils 3.1 K/uL (1.8-8.0) 07/01/20 06:15 Absolute Lymphocytes 1.6 K/uL (0.7-4.9) 07/01/20 06:15 Absolute Monocytes 0.6 K/uL (0.1-1.3) 07/01/20 06:15 Absolute Eosinophils 0.2 K/uL (0-0.5) 07/01/20 06:15 Absolute Basophils 0.0 K/uL (0-0.5) 07/01/20 06:15 Sodium 141 mmol/L (136-145) 07/01/20 06:15 Potassium 4.1 mmol/L (3.5-5.1) 07/01/20 06:15 Chloride 108 mmol/L (98-107) H 07/01/20 06:15 Carbon Dioxide 28 mmol/L (21-32) 07/01/20 06:15 BUN 24 mg/dL (7-18) H 07/01/20 06:15 Creatinine 1.16 mg/dL (0.55-1.3) 07/01/20 06:15 Estimated GFR 44 mL/min (=/>90) L 07/01/20 06:15 Glucose 242 mg/dL (74-106) H 07/01/20 06:15 POC Glucose 221 mg/dL (65-120) H 07/01/20 07:13 Calcium 8.4 mg/dL (8.5-10.1) L 07/01/20 06:15 Magnesium 1.7 mg/dL (1.8-2.4) L 07/01/20 06:15 Albumin 2.8 g/dL (3.4-5.0) L 07/01/20 06:15 Prealbumin 15.2 mg/dL (20-40) L 07/01/20 06:15 Urine Color Yellow 06/30/20 21:45 Urine Appearance Clear 06/30/20 21:45 Urine pH 7.0 (5.0-7.0) 06/30/20 21:45 Ur Specific [place] 1.010 (1.005-1.030) 06/30/20 21:45 Glucose (UA)(Auto) 2+ (NEG) H 06/30/20 21:45 Urine Ketones Negative (NEG) 06/30/20 21:45 Urine Blood Negative (NEG) 06/30/20 21:45 Urine Nitrite Negative (NEG) 06/30/20 21:45 Urine Bilirubin Negative (NEG) 06/30/20 21:45 Urine Urobilinogen 0.2 mg/dL (0.2-1.0) 06/30/20 21:45 Ur Leukocyte Esterase Negative (NEG) 06/30/20 21:45 Urine RBC <5 /HPF (NONE SEEN) 06/30/20 21:45 Urine WBC <5 /HPF (<5) 06/30/20 21:45 Ur Squamous Epith Cells 10-20 /HPF (NONE SEEN) H 06/30/20 21:45 Urine Bacteria >50 /HPF (<20) H 06/30/20 21:45 Urine Mucus 1+ /HPF (NONE SEEN) 06/30/20 21:45 Urine Culture Reflexed Not needed 06/30/20 21:45 Urine Total Protein Trace (NEG) 06/30/20 21:45 Weight: 154 lb Wound Present: No Closed Surgical Incision Present: No Negative Pressure Wound Therapy Present: No Physician Update: Labs reviewed and are stable. She walked 130' with minimum assistance. She had difficulty wording finding and verbal fluency. She was sleepy today. Speech and occupational therapy will evaluate her today. Functional Improvement: pt presents with mild strength deficits globally. pt demonstrates postural instability, which is worse during functional activity. pt tends to lean laterally to the L. pt exhibits poor balance and stability during ambulation and functional transfers. pt exhibits delayed processing and difficulty with word finding. pt experiences poor tolerance to functional activity due to weakness, fatigue, AMS, and SOB. Skilled PT services are necessary to address the above mentioned impairments and functional limitations. Summary: Patient's care plan and terminal press operator goals have been reviewed and revised as necessary. Please see the Rehabilitation Signature page for all necessary signatures.
--- NOTE | 2020-07-01 12:04 | RAD REPORT ---
EXAM DESCRIPTION: CT - Ct Stroke Brain Wo Cont - 07/01/2020 11:30 am CLINICAL HISTORY: R/O STROKE, recent acute CVA diagnosis, altered mental status COMPARISON: Brain Wo Cont dated 06/29/2020; Head C Spine Cap Wo Con dated 06/28/2020 TECHNIQUE: Axial 5 millimeter thick images of the head were obtained without IV contrast. All CT scans are performed using dose optimization technique as appropriate and may include automated exposure control or mA/KV adjustment according to patient size. FINDINGS: No intracranial hemorrhage present. No mass effect, edema or shift of midline structures. Recently diagnosed nonhemorrhagic CVA is in the medial right thalamus and the left anterior thalamus internal capsule junction again noted. These are not grossly different in size from the MRI and have shown the expected aging over the interval since acute event. Patient has underlying prominent atroph y and chronic ischemic changes are noted. No cortical based acute infarction. No cortical edema or pan lcal effacement identifiable. Provided history was nonfocal changes in neuro status. Visualized portions of the mastoid air cells, paranasal sinuses, and orbits are unremarkable. Findings were telephoned to the fifth floor nurses station 11:35 a.m. IMPRESSION: No intracranial hemorrhage has developed. No new acute cortical based infarction identif ied. There has been the expected aging of the recent infarctions in the medial right thalamus and left ant erior thalamus internal capsule junction.
[2020-07-01] MEDS ORDERED: NALOXONE 0.4 MG/ML VIAL IV ONE (15:00)
--- NOTE | 2020-07-01 15:06 | R.HP ---
HISTORY AND PHYSICAL FACILITY: [facility] ENCOUNTER DATE AND TIME: 07/01/2020 14:33 (CDT) MR#: [id number] NAME BAILEE CASTANEDA ADDRESS: [address] [place] [address] CITY: [place]IP [id number] PHONE: DATE OF : 1935 AGE: 85 SSN# [id number] GENDER: Female DEXTERITY Right-handed MARITAL STATUS RACE White PRE-HOSPITAL LIVING SETTING 01 - Home (private home/apt. board/care, assisted living, prison, transitional living) PRE-HOSPITAL LIVING WITH Alone ENCOUNTER PHYSICIAN: Dr. Sabino Jiang M.D. REFERRING DOCTOR: DR. SUSAN LOPEZ DATE OF ADMISSION: 06/30/2020 13:25 (CDT) REFERRING FACILITY [facility] HOME TYPE AND DETAILS: Type of home: single family house # of levels in the residence: 1 # of steps within the residence: 0 # of steps to enter the residence: 0 ONSET DATE: 06/28/2020 PRIMARY DIAGNOSIS-RELATED SURGERIES: Emergency Stroke(Bilateral) - performed by DR. SUSAN LOPEZ on 06/28/2020 HISTORY OF PRESENT ILLNESS (HPI): Pt. is a 85 yo Right-handed white female. On 06/28/[address] Pt[address] [facility] with sudden onset of bilateral weakne ss. On 06/28/2020 she was admitted to [facility] and underwent emergency surgery fo r Bilateral acute non-hemorrhagic lacunar infarcts (Stroke(Bilateral)) by DR. SUSAN LOPEZ. Pre-morbidly, Pt. was independent/mod-I in Transfers Control, Locomotion, Self-Care, Social Cognition , Sphincter Control, and Communication; and she had good Balance and Safety Awareness. Currently, she has deficits of Transfers Control, Balance, Locomotion, Safety Awareness, and Self-Car e. Pt. is now referred to [facility] for acute in-patient rehabilitation in order to maximize patient's functional independence in activities of daily living, strength, ROM, and mobi lity. Patient has realistic goal of being discharged at assistance level 6-Alexandra to reside at Home with Pt self. MEDICATION ALLERGIES: terbinafine HCI Iodine ENVIRONMENTAL ALLERGIES: - Substance Allergies None Known - Other Allergies None Known PAST MEDICAL HISTORY: Osteoarthritis of L knee DIABETES GERD Pure hypercholesterolemia (E78.0) HTN Hypothyroidism, unspecified (E03.9) ovarian cancer PAST SURGICAL HISTORY: Cholecystectomy Tonsillectomy APPENDECTOMY Cancer Polyp HYSTERECTOMY Prolapsed Bladder sx SOCIAL HISTORY: - Home Living Alone REVIEW OF SYSTEMS: - Gen No Chills Fatigue No Fever - Eyes No Double Vision No itchiness - ENMT Difficulty Swallowing - CVS No Chest Discomfort No Chest Pain No Fatigue No Weight Gain - Resp No Cough No Shortness of Breath - GI Continent No Abdominal Pain No Constipation No Diarrhea - Continent No Kidney Pain No Painful Urination No Urinary Urgency - MSK No Joint Pain No Muscle Cramps Stiffness - Skin No Itching No Rash No Suspicious Lesions - Neuro Coordination Difficulty Difficulty with Concentration No Memory Loss No Seizures Weakness - Psych No Anxiety No Depression No HIV Exposure No Persistent Infections No Seasonal Allergies - Endo No Cold/Heat Intolerance No Excessive Hunger No Excessive Thirst No Excessive Urination PHYSICAL EXAM - Gen Alert and awake Lying in bed No apparent distress Oriented to: person, time, and place - Skin No skin breakdown. Normacephalic - Eyes No abnormalities - ENMT No abnormalities - Neck No abnormalities - CVS RRR - Chest No abnormalities - Resp No wheezing - Abd Soft - GI + bowel sounds Deferred - No abnormalities - Ext No significant edema - MSK 4+/5 weakness in both lower and upper extremities. - Neuro 4/5 strength bilaterally upper and lower extremities. - Psych No abnormalities VITAL SIGNS Temperature: 97.3 F SBP/DBP: 123/60 Pulse: 52 Resp: 18 NURSING: - Shower allowing shower - Bladder care per protocol - Skin care per protocol PRECAUTIONS: - Weight Bearing Precaution WBAT both LE ACTIVITIES OOB only with supervision QI SCORES: - Self-Care A. Eating 05-Setup or clean-up assistance B. Oral hygiene 05-Setup or clean-up assistance C. Toileting hygiene 04-Supervision or touching assistance E. Shower/bathe self 10-Not attempted due to environmental limitations F. Upper body dressing 04-Supervision or touching assistance G. Lower body dressing 88-Not attempted due to medical condition or safety concerns H. Putting on/taking off footwear 88-Not attempted due to medical condition or safety concerns - Mobility A. Roll left and right 04-Supervision or touching assistance B. Sit to lying 04-Supervision or touching assistance C. Lying to sitting on side of bed 04-Supervision or touching assistance D. Sit to stand 04-Supervision or touching assistance E. Chair/qlj-on-dglje transfer 04-Supervision or touching assistance F. Toilet transfer 04-Supervision or touching assistance G. Car transfer 88-Not attempted due to medical condition or safety concerns I. Walk 10 feet 04-Supervision or touching assistance J. Walk 50 feet with two turns 04-Supervision or touching assistance K. Walk 150 feet 04-Supervision or touching assistance L. Walking 10 feet on uneven surfaces 88-Not attempted due to medical condition or safety concerns M. 1 step (curb) 88-Not attempted due to medical condition or safety concerns N. 4 steps 88-Not attempted due to medical condition or safety concerns O. 12 steps 88-Not attempted due to medical condition or safety concerns P. Picking up object 88-Not attempted due to medical condition or safety concerns - Bladder and Bowel Bladder continence 0-Always continent Bowel continence 0-Always continent - Endurance Fair - Balance Fair - Safety Awareness Poor CURRENT FUNC. DEFICITS: Self-Care, Mobility, Endurance, Balance, and Safety Awareness MEDICATIONS: - Other See attached MAR (Medication Administration Record) ASSESSMENT: Pt. is a 85 yo Right-handed white female.On 06/28/2020 Pt. presented to [facility] with sudden onset of bilateral weakness.On 06/28/2020 she was admitted to [facility] and underwent emergency surgery for Bilateral acute non-hemorrhagic lacunar infarcts (Strok e(Bilateral)) by DR. SUSAN LOPEZ.Pre-morbidly, Pt. was independent/mod-I in Transfers Control, Locom otion, Self-Care, Social Cognition, Sphincter Control, and Communication; and she had good Balance an d Safety Awareness.Currently, she has deficits of Transfers Control, Balance, Locomotion, Safety Awar eness, and Self-Care.Pt. is now referred to [facility] for acute in-patient re habilitation in order to maximize patient's functional independence in activities of daily living, st rength, ROM, and mobility.- Rehab Goal Patient has realistic goal of being discharged at assistance level 6-Alexandra to reside at Home with Pt self. REHAB PLAN: for Dementia, TBI, Stroke, or others - Physical Therapy Gait dysfunction - to improve, our physical therapists will perform initial evaluation of pt's status upon admission and devise an individualized program for Gait Training, and Wheel Chair mobility Inability to transfer - to improve, our physical therapists will perform initial evaluation of pt's s tatus upon admission and devise an individualized program for Bed mobility Need for home safety evaluation - to improve, our physical therapists will perform initial evaluation of pt's status upon admission and devise an individualized program for Home Evaluation Need in caregiver upon discharge - to improve, our physical therapists will perform initial evaluatio n of pt's status upon admission and devise an individualized program for Caregiver Training Edema - to improve, our physical therapists will perform initial evaluation of pt's status upon admi ssion and devise an individualized program for Elevation Training, and Lymphedema Therapy New precaution - to improve, our physical therapists will perform initial evaluation of pt's status u [place]lin admission and devise an individualized program for Patient precaution education Poor balance - to improve, our physical therapists will perform initial evaluation of pt's status upo n admission and devise an individualized program for Balance Training Weakness - to improve, our physical therapists will perform initial evaluation of pt's status upon ad mission and devise an individualized program for Aquatic Therapy, Neuromuscular Reeducation, and Stre ngthening Achieving independence - to improve, our physical therapists will perform initial evaluation of pt's status upon admission and devise an individualized program for Community Reintegration Activities - Occupational Therapy ADL deficits - to improve, our occupation therapists will perform initial evaluation of pt's status u [place]lin admission and devise an individualized program for Bathing, Bed mobility, Community Reintegration , Cooking, Dressing, Eating, Fine Motor Skills, Grooming, Homemaking, Kitchen Mobility, Laundry, Gloria ent Education, Safety Awareness, Splinting - Positioning, Transfers(Toilet, Tub, Shower), and Wheel C hair Management Need for laboratory animal caretaker - to improve, our occupation therapists will perform initial evaluation of pt's s tatus upon admission and devise an individualized program for Caregiver Training Weakness - to improve, our occupation therapists will perform initial evaluation of pt's status upon admission and devise an individualized program for Aquatic Therapy, Balance, Endurance, UE ROM, and U E strengthening MEDICAL PLAN: - Diet Type Start Regular - Diet - Liquid Texture Start Regular - Tube Feed Start N/A - Bladder care per protocol - Weight Bearing Precaution WBAT both LE - Skin care per protocol - Other See attached MAR (Medication Administration Record) - Diet - Solid Texture Regular - Shower shower DISCHARGE PLAN: - Estimated Length of Stay (days) 17. - Consensus on plan Discharge plan has been discussed with primary caregiver. Patient/Family is in agreement with the [place] n. Primary caregiver is in agreement with the plan. - Patient/Family Goals Return home independently. - Planned Living Setting Upon Discharge Primary caregiver: Pt self. SIGNATURE PANEL: (CDT)
--- NOTE | 2020-07-01 15:08 | PAPE ---
POST ADMISSION PHYSICIAN EVALUATION PATIENT: [facility] MR# [id number] REFERRING DOCTOR DR. SUSAN LOPEZ EVALUATION DATE AND TIME 07/01/2020 15:06 (CDT) NAME BAILEE CASTANEDA DATE OF 1935 AGE 85 PHONE SSN# [id number] GENDER female EVALUATING PHYSICIAN Dr. Sabino Jiang M.D. ADMISSION DIAGNOSIS: Bilateral acute non-hemorrhagic lacunar infarcts ONSET DATE 06/28/2020 POST-ADMISSION FUNCTIONAL/MEDICAL STATUS: - Walking Same score based on distance walked: 3(>=150ft) STATUS CHANGE EVALUATION: No change in Functional or Medical Status is identified compared with Pre-Admission screening. PATIENT NEEDS CLOSE MEDICAL SUPERVISION BY A REHABILITATION PHYSICIAN FOR: Coordination of Treatment Team Post-Op Complications PATIENT REQUIRES 24X7 REHAB NURSING FOR MEDICAL AND FUNCTIONAL MGT. OF THE FOLLOWING DEFICITS: Disease Management Medication Management Patient/Family Education Providing Safe Environment PATIENT REQUIRES INTENSIVE, COORDINATED INTERDISCIPLINARY APPROACH TO REHAB: Arranging Home Equipment/Services Discharge Planning Family Intervention/Training Booking Manager/Case Management LIST OF IDENTIFIED AND POTENTIAL PROBLEMS: Alteration in leisure activities Infection, Actual or Potential Mobility Impaired Pain, Alteration in Comfort Self Care Deficit Skin Integrity, Actual or Potential Urinary Tract Infection (UTI), Actual or Potential PATIENT COULD BE AT RISK FOR COMPLICATIONS FROM ADVERSE MEDICAL CONDITIONS DUE TO HIS/HER COMORBIDITI ES AND THE RIGORS OF THE INTENSIVE REHABILLITATION PROGRAM. METHODS OR INTERVENTIONS TO AVOID COMPLIC ATIONS INCLUDE: - Bleeding Stroke patients assessed for lethargy or change in status. - Infection Clinical staff to assess and manage the signs and symptoms of infection including fever, redness, war mth, etc. - Urinary Tract Infection - Aspiration Clinical staff will assess and manage coughing, drooling, congestion. - Falls Patient will be evaluated for Fall Precautions and will be placed on Fall Precautions as indicated pe r protocol. - Skin Breakdown Nursing will assess skin daily using assessment tool and will place on Skin Breakdown Precautions as indicated per protocol. - Pain Clinical staff may employ non-medication methods such as massage, distraction, decrease stimulus, etc . as needed. Clinical staff will assess patient's pain level every shift per protocol to assess and e nsure pain management effectiveness. Medications will be given and the pain level re-assessed. PRELIMINARY PLAN OF CARE: - Physical Therapy Patient needs Physical Therapy for a daily minimum of 1.5 hours at least 5 out of 7 days, to improve: Mobility, Strengthening, Transfers, Stretching, ROM, Endurance, Ability to manage stairs, Gait, and Balance. - Speech Therapy Patient needs Speech Therapy for a daily minimum of 0.5 hours at least 5 out of 7 days, to improve: S wallowing, Cognition, Language Skills, and Compensatory Strategies. - Rehabilitation Nursing Patient requires 24x7 Rehabilitation Nursing for: Pain Issues, Identifying and preventing risk factor s, Monitoring and reporting current medical conditions, Assisting with ambulation and transfer, Tom ting with all ADL-s, Teaching patients about disease process and medications, Family teaching, Provid ing safe environment, Bowel and Bladder Issues, Skin Integrity, and Medication Management. Patient needs Booking Manager and/or Case Management for: Discharge Planning, Arranging Home Equipmen t or Services, and Family Interventions. - Dietary and Nutrition Services Patient needs Dietary and Nutrition Services for: Adequate Nutrition, Nutritional Supplements, and Nu tritional Education. - Occupational Therapy Patient needs Occupational Therapy for a daily minimum of 1.5 hours at least 5 out of 7 days, to impr ove Activities of Daily Living, including: Eating, Grooming, Bathing, Dressing, Toileting, Toilet Tra nsfers, Community Reintegration, Higher functional activities, Adaptive Equipment, Splinting, Househo ld Tasks, and Other activities as determined. QI SCORES: - Self-Care A. Eating 05-Setup or clean-up assistance B. Oral hygiene 05-Setup or clean-up assistance C. Toileting hygiene 04-Supervision or touching assistance E. Shower/bathe self 10-Not attempted due to environmental limitations F. Upper body dressing 04-Supervision or touching assistance G. Lower body dressing 88-Not attempted due to medical condition or safety concerns H. Putting on/taking off footwear 88-Not attempted due to medical condition or safety concerns - Mobility A. Roll left and right 04-Supervision or touching assistance B. Sit to lying 04-Supervision or touching assistance C. Lying to sitting on side of bed 04-Supervision or touching assistance D. Sit to stand 04-Supervision or touching assistance E. Chair/dub-la-sjlwp transfer 04-Supervision or touching assistance F. Toilet transfer 04-Supervision or touching assistance G. Car transfer 88-Not attempted due to medical condition or safety concerns I. Walk 10 feet 04-Supervision or touching assistance J. Walk 50 feet with two turns 04-Supervision or touching assistance K. Walk 150 feet 04-Supervision or touching assistance L. Walking 10 feet on uneven surfaces 88-Not attempted due to medical condition or safety concerns M. 1 step (curb) 88-Not attempted due to medical condition or safety concerns N. 4 steps 88-Not attempted due to medical condition or safety concerns O. 12 steps 88-Not attempted due to medical condition or safety concerns P. Picking up object 88-Not attempted due to medical condition or safety concerns - Bladder and Bowel Bladder continence 0-Always continent Bowel continence 0-Always continent - Endurance Fair - Balance Fair - Safety Awareness Poor POTENTIAL FUNCTIONAL GOALS FOR PATIENT TO ACHIEVE BY DISCHARGE: - Safety Precaution Patient will remain free from falls or injury at time of discharge. - Bed Mobility Patient will perform bed mobility at 4-Antoine level of assistance. - Transfers Patient will complete transfers from bed to chair at 4-Antoine level of assistance. - Mobility Patient will ambulate 150 ft with 4-Antoine level of assistance with RW. PATIENT REHAB POTENTIAL Valentina CASTANEDA is able and expected to receive 3 hours of individualized therapy daily on at least 5 of malorie ry 7 days Valentina VYASs prognosis for significant practical improvement within a reasonable period of time appears Good Expected level of measurable improvement will be of a practical value to Valentina CASTANEDA's functional capaci ty or adaptations to impairments Has a viable Discharge Plan Medically appropriate; condition is sufficiently stable to participate in intensive rehab program DISCHARGE PLAN: - Estimated Length of Stay (days) 17. - Consensus on plan Discharge plan has been discussed with primary caregiver. Patient/Family is in agreement with the [place] n. Primary caregiver is in agreement with the plan. - Patient/Family Goals Return home independently. - Planned Living Setting Upon Discharge Primary caregiver: Pt self. CONCLUSION ON REHABILITATION NECESSITY: I have evaluated patient's pre-admission functional status and, comparing it to the patient's post-ad mission functional status now, I conclude that the pre-admission assessment was accurate. Patient's c ondition on admission supports the medical necessity of admission to IRF. It is safe to proceed with patient's therapy program. SIGNATURE PANEL: (CDT)
[2020-07-01] MEDS ORDERED: MELATONIN 3 MG TABLET PO PRN (15:09)
[2020-07-01 15:41] LABS: Arterial Blood Carboxyhemoglob 1.2 % (0-1.5); Blood Gas Oxyhemoglobin 86.7 % (94-97); Blood O2 Saturation 88.6 % (92-98.5)
--- NOTE | 2020-07-01 17:50 | EKG ---
Test Date: 2020-07-01 Test Time: 14:25:18 Collision Estimator: LASHONDA MEASUREMENT RESULTS: Intervals: Rate: 54 NM: 178 QRSD: 98 QT: 522 QTc: 495 Leland: P: 65 NM: 178 QRS: -26 T: 58 INTERPRETIVE STATEMENTS: Sinus bradycardia with premature atrial complexes with aberrant conduction Minimal voltage criteria for LVH, may be normal variant Inferior infarct, age undetermined Anterior infarct, age undetermined Abnormal ECG Compared to ECG 06/29/2020 08:39:09 Atrial premature complex(es) now present Aberrant conduction of supraventricular beat(s) now present Sinus rhythm no longer present Sinus arrhythmia no longer present Myocardial infarct finding still present Electronically Signed On 07-01-20 17:49:50 CDT by Mio Zabala
[2020-07-01] MEDS: FAMOTIDINE 20 MG TAB PO SCH (20:35)
[2020-07-01] MEDS: DOCUSATE NA/SENNA CONC 1 TAB PO SCH (20:36)
--- NOTE | 2020-07-01 20:54 | P.PN ---
Subjective Date of Service: 07/01/20 Chief Complaint: SP STROKE Subjective: Improving I SAW THIS AM THAT SHE WAS FULLY AWAKE AND EATING BREAKFAST. DAUGHTER AT BEDSIDE. SHE HAS NO CHEST PAIN. SHE STILL HAS WORD FINDING DIFFICULTY. THIS PM ABOUT 1 PM OR SO I WAS CALLED BY REHAB THAT SHE WAS LETHARGIC. SHE RECEIVED DOSE OF NARCAN AFTER I TALKED TO DR. MESA AND WOKE UP. THIS COULD BE LATE EFFECT OF NARCOTIC THAT NOW HAS BEEN DISCONTINUED. Review of Systems 10-point ROS is otherwise unremarkable General: Weakness, As per HPI Neurological: Confusion Physical Examination - Vital Signs Temperature: 97.2 F Blood Pressure: 163/64 Pulse: 58 Respirations: 16 Pulse Ox (%): 96 - Physical Exam General: Mild distress HEENT: Atraumatic, PERRLA, EOMI Neck: Supple, JVD not distended Respiratory: Clear to auscultation bilaterally, Normal air movement Cardiovascular: Regular rate/rhythm, Normal S1 S2 Gastrointestinal: Normal bowel sounds, No tenderness Musculoskeletal: No tenderness Integumentary: No rashes Neurological: Normal speech, Normal tone, Normal affect Lymphatics: No axilla or inguinal lymphadenopathy - Studies Laboratory Data (last 24 hrs) 07/01/20 06:15: Sodium 141, Potassium 4.1, BUN 24 H, Creatinine 1.16, Glucose 242 H, Magnesium 1.7 L 07/01/20 06:15: WBC 5.6 D, Hgb 13.0, Hct 38.9, Plt Count 147 L Medications List Reviewed: Yes Assessment And Plan - Current Problems (Diagnosis) (1) Cerebral multi-infarct state Current Visit: No Status: Acute Plan: CONTINUE PT SHE WILL TAKE TIME TO RECOVER. RESUME PLAVIX DAILY. (2) Diabetes Current Visit: No Status: Chronic Plan: A1C IS 7.1 LDL HAS BEEN CONTROLLED. CONTINUE MEDS. Qualifiers: Diabetes mellitus type: type 2
[2020-07-02] MEDS: THYROID 30 MG TAB PO SCH (05:23)
[2020-07-02 05:25] VITALS: BMI 23.9
[2020-07-02] MEDS: ENOXAPARIN 30 MG/0.3 ML SQ SCH (07:00)
[2020-07-02] MEDS: LOSARTAN POTASSIUM 50 MG TABLET PO SCH ×2 (07:05→08:31)
[2020-07-02] MEDS: INSULIN -REGULAR HUMAN 50 UNIT/0.5 ML ML SQ SCH ×4 (07:30→21:00)
[2020-07-02] MEDS: cloNIDine HCL 0.1 MG TAB ONE ×2 (07:35→07:43)
[2020-07-02] MEDS ORDERED: cloNIDine HCL 0.1 MG TAB PO ONE (07:37)
[2020-07-02] MEDS: CYANOCOBALAMIN 1,000 MCG TAB SL SCH (08:32)
[2020-07-02] MEDS: CLOPIDOGREL 75 MG TABLET PO SCH (08:32)
[2020-07-02] MEDS: ASPIRIN EC 81 MG TAB PO SCH (08:32)
[2020-07-02] MEDS: ISOSORBIDE MONO SR 30 MG TAB PO SCH (08:32)
[2020-07-02] MEDS: INSULIN 70/30 100 UNITS/ML SQ SCH ×2 (08:33→17:36)
[2020-07-02] MEDS: carvediloL 25 MG TAB PO SCH ×2 (08:33→17:37)
[2020-07-02] MEDS: HYDRALAZINE HCL 25 MG TABLET PO SCH ×2 (09:00→13:14)
--- NOTE | 2020-07-02 13:33 | FAST ---
OT QI REPORT FORM ENCOUNTER DATE AND TIME: 07/02/2020 08:00 (CDT) NAME BAILEE CASTANEDA DATE OF : 1935 DATE OF ADMISSION: 06/30/2020 13:25 (CDT) PHONE: AGE: 85 N# [id number] GENDER: Female ENCOUNTER PHYSICIAN: Dr. Sabino Jiang M.D. ADMISSION DIAGNOSIS: - Stroke 01 - Bilateral (01.3) Bilateral acute non-hemorrhagic lacunar infarcts. EATING: EATING - STEP 1: Does the patient complete the activity by him/herself with no assistance (physical, verbal/nonverbal cueing, setup/clean-up)? No. EATING - STEP 2: Does the patient need only setup/clean-up assistance from one helper? No. EATING - STEP 3: Does the patient need only verbal/nonverbal cueing or touching/steadying/contact guard assistance fro m one helper? No. EATING - STEP 4: Does the patient need physical assistance - for example lifting or trunk support from one helper - wi th the helper providing less than half of the effort? No. EATING - STEP 5: Does the patient need physical assistance - for example lifting or trunk support from one helper - wi th the helper providing more than half of the effort? Yes. 1. [id number] ADMISSION PERFORMANCE: Substantial/maximal assistance CODE: 02 ORAL HYGIENE: ORAL HYGIENE - STEP 1: Does the patient complete the activity by him/herself with no assistance (physical, verbal/nonverbal cueing, setup/clean-up)? No. ORAL HYGIENE - STEP 2: Does the patient need only setup/clean-up assistance from one helper? No. ORAL HYGIENE - STEP 3: Does the patient need only verbal/nonverbal cueing or touching/steadying/contact guard assistance fro m one helper? No. ORAL HYGIENE - STEP 4: Does the patient need physical assistance - for example lifting or trunk support from one helper - wi th the helper providing less than half of the effort? No. ORAL HYGIENE - STEP 5: Does the patient need physical assistance - for example lifting or trunk support from one helper - wi th the helper providing more than half of the effort? No. ORAL HYGIENE - STEP 6: Does the helper provide all of the effort? OR Is the assistance of two or more helpers required to co mplete the activity? Yes. 1. [id number] ADMISSION PERFORMANCE: Dependent CODE: 01 TOILETING HYGIENE: Not attempted due to medical condition or safety concerns CODE: 88 BATHING: Not attempted due to medical condition or safety concerns CODE: 88 DRESSING - UPPER BODY: DRESSING - UPPER BODY - STEP 1: Does the patient complete the activity by him/herself with no assistance (physical, verbal/nonverbal cueing, setup/clean-up)? No. DRESSING - UPPER BODY - STEP 2: Does the patient need only setup/clean-up assistance from one helper? No. DRESSING - UPPER BODY - STEP 3: Does the patient need only verbal/nonverbal cueing or touching/steadying/contact guard assistance fro m one helper? No. DRESSING - UPPER BODY - STEP 4: Does the patient need physical assistance - for example lifting or trunk support from one helper - wi th the helper providing less than half of the effort? No. DRESSING - UPPER BODY - STEP 5: Does the patient need physical assistance - for example lifting or trunk support from one helper - wi th the helper providing more than half of the effort? No. DRESSING - UPPER BODY - STEP 6: Does the helper provide all of the effort? OR Is the assistance of two or more helpers required to co mplete the activity? Yes. 1. [id number] ADMISSION PERFORMANCE: Dependent CODE: DRESSING - LOWER BODY: Not attempted due to medical condition or safety concerns CODE: 88 PUTTING ON/TAKING OFF FOOTWEAR: FOOTWEAR - STEP 1: Does the patient complete the activity by him/herself with no assistance (physical, verbal/nonverbal cueing, setup/clean-up)? No. FOOTWEAR - STEP 2: Does the patient need only setup/clean-up assistance from one helper? No. FOOTWEAR - STEP 3: Does the patient need only verbal/nonverbal cueing or touching/steadying/contact guard assistance fro m one helper? No. FOOTWEAR - STEP 4: Does the patient need physical assistance - for example lifting or trunk support from one helper - wi th the helper providing less than half of the effort? No. FOOTWEAR - STEP 5: Does the patient need physical assistance - for example lifting or trunk support from one helper - wi th the helper providing more than half of the effort? No. FOOTWEAR - STEP 6: Does the helper provide all of the effort? OR Is the assistance of two or more helpers required to co mplete the activity? Yes. 1. [id number] ADMISSION PERFORMANCE: Dependent CODE: 01 DOES THE PATIENT USE A WHEELCHAIR/SCOOTER? CODE: EXPR INDICATE THE TYPE OF WHEELCHAIR/SCOOTER USED: CODE: EXPR INDICATE THE TYPE OF WHEELCHAIR/SCOOTER USED: CODE: EXPR BLADDER AND BOWEL: CODE: EXPR CODE: EXPR SIGNATURE PANEL: The following modified sections: 1. [id number] Admission Performance, 1. [id number] Admission Performance, 1. [id number] Admission Performance, 1. [id number] Admission Performance were [electronically] signed by Melani Simms OT on Sat Jul 02 2020 13:33:07 T-0500 (Central Daylight Time)
--- NOTE | 2020-07-02 13:46 | P.PN ---
Subjective Date of Service: 07/02/20 Chief Complaint: SP STROKE Subjective: C/O voiced I SAW THIS AM THAT SHE WAS FULLY AWAKE AND EATING BREAKFAST. DAUGHTER AT BEDSIDE. SHE HAS NO CHEST PAIN. SHE STILL HAS WORD FINDING DIFFICULTY. THIS PM ABOUT 1 PM OR SO I WAS CALLED BY REHAB THAT SHE WAS LETHARGIC. SHE RECEIVED DOSE OF NARCAN AFTER I TALKED TO DR. MESA AND WOKE UP. THIS COULD BE LATE EFFECT OF NARCOTIC THAT NOW HAS BEEN DISCONTINUED. BP WENT UP THIS AM BEFORE MEDICINES. AFTER THE MEDS AND CHANGES IT IS DOWN TO 120/70. I SAW PATIENT THIS AM AND TALKED TO KEELEY LATER AT 10 ABOUT. Review of Systems 10-point ROS is otherwise unremarkable General: Weakness, Malaise Physical Examination - Vital Signs Temperature: 97.4 F Blood Pressure: 200/90 Pulse: 56 Respirations: 16 Pulse Ox (%): 91 - Physical Exam General: Mild distress HEENT: Atraumatic, PERRLA, EOMI Neck: Supple, JVD not distended Respiratory: Clear to auscultation bilaterally, Normal air movement Cardiovascular: Regular rate/rhythm, Normal S1 S2 Gastrointestinal: Normal bowel sounds, No tenderness Musculoskeletal: No tenderness Integumentary: No rashes Neurological: Normal speech, Normal tone, Normal affect, Other (SLOW REPLIES AND SOME ANOMIA. ), Abnormal strength (GEN WEAK BUT NOT FOCAL.) Lymphatics: No axilla or inguinal lymphadenopathy - Studies Medications List Reviewed: Yes Assessment And Plan - Current Problems (Diagnosis) (1) Cerebral multi-infarct state Current Visit: No Status: Acute Plan: CONTINUE PT SHE WILL TAKE TIME TO RECOVER. RESUME PLAVIX DAILY. CLINICALLY STABLE. (2) Diabetes Current Visit: No Status: Chronic Plan: A1C IS 7.1 LDL HAS BEEN CONTROLLED. CONTINUE MEDS. Qualifiers: Diabetes mellitus type: type 2 (3) HTN (hypertension) Current Visit: Yes Status: Chronic Plan: AFTER STROKE BP CAN GO HIGH AT TIMES. TODAY ONCE AGAIN IT DID. I ADDED CLONIDINE PRN AT Q2H, ADDED SPIRONOLACTONE. WILL WATCH K. ADDED HYDRALAZINE BP WAS 200 SYSTOLIC AND DID NOT COME DOWN AFTER ONE DOSE OF CLONIDINE.
[2020-07-02] MEDS: cloNIDine HCL 0.1 MG TAB PO PRN ×2 (19:05→21:42)
--- NOTE | 2020-07-02 19:13 | CON ---
Date of Consultation: 07/01/2020 Reason For Consultation: Possible CVA and severe hypertension. History Of Present Illness: The patient is an 85-year-old woman who was admitted to Dr. Mo after a fall, was found to have multiple lacunar infarcts by CT and MRI. She had a negative carotid Dopple r, normal echocardiogram. EKG shows sinus bradycardia with LVH. The patient denied any chest pain, shortness of breath, PND, orthopnea, pedal edema, palpitations, or syncope. She had by the time I sa w her received some Narcan for morphine reaction. She was still somnolent, but no acute distress and no complaints. Past Medical History: Include diabetes, hypertension, dyslipidemia, hypothyroidism, and ovarian canc er. Allergies: IODINE. Review of Systems: Negative. Social History: Negative. Family History: Noncontributory. Medications: At home include aspirin, Coreg, clonidine, Plavix, losartan, Pepcid, Imdur, insulin, an d Synthroid. Physical Examination: Vital signs: When she first came in, she had a blood pressure of 229/77, probably causing her stroke , her lacunar infarct. Her pressure now is 160/60. She is in sinus rhythm. HEENT: Negative. Neck: Supple. No bruit. Chest: Clear. Cardiac: Revealed a regular rhythm and rate with an S4 gallops. No murmurs or rubs. Abdomen: Benign. Extremities: Revealed no clubbing, cyanosis, or edema. Laboratory Data: Her glucose was 100. Her PO2 was 55. Magnesium was 1.7 that was supplemented. Ot her data were stated earlier. Impression And Plan: 1.Lacunar infarct secondary to severe hypertension, uncontrolled. We can certainly consider adding Norvasc or Procardia to her regimen. Continue the Coreg with clonidine, losartan. I think a low-dos e hydrochlorothiazide may help as well with her systolic blood pressure, but I will leave that up to Dr. Mo. 2.Diabetes, well controlled. 3.Dyslipidemia, well controlled. 4.Hypothyroidism, now well-controlled. I will continue to follow Mrs. Bennett on an as-needed basis. TERESA/HENNA Voice ID: [id number] Report ID: [id number]
[2020-07-02] MEDS: DOCUSATE NA/SENNA CONC 1 TAB PO SCH (21:00)
[2020-07-02] MEDS: MAGNESIUM OXIDE 400 MG TAB PO SCH (21:42)
[2020-07-02] MEDS: FAMOTIDINE 20 MG TAB PO SCH (21:43)
[2020-07-02] MEDS ORDERED: HYDRALAZINE HCL 25 MG TABLET PO SCH (21:53)
[2020-07-03] MEDS: cloNIDine HCL 0.1 MG TAB PO PRN ×3 (02:50→23:46)
[2020-07-03] MEDS: carvediloL 25 MG TAB PO SCH (05:52)
[2020-07-03] MEDS: carvediloL 12.5 MG TAB PO SCH ×2 (06:14→17:19)
[2020-07-03] MEDS: THYROID 30 MG TAB PO SCH (06:14)
[2020-07-03 06:29] LABS: Potassium 3.9 mmol/L (3.5-5.1)
[2020-07-03 06:30] LABS: Absolute Lymphocytes (CBC) 1.9 K/uL (0.7-4.9); Basophils % 0.8 % (0-1.3); Hematocrit 41.8 % (36.0-45.0); Lymphocytes % 32.3 % (15.3-44.8); MPV 10.3 fL (7.6-11.3); RBC Red Blood Cell Count 4.86 M/uL (3.86-4.86)
[2020-07-03] MEDS: LOSARTAN POTASSIUM 50 MG TABLET PO SCH (06:48)
[2020-07-03] MEDS: INSULIN 70/30 100 UNITS/ML SQ SCH ×3 (07:30→17:21)
[2020-07-03] MEDS: INSULIN -REGULAR HUMAN 50 UNIT/0.5 ML ML SQ SCH ×5 (07:30→20:51)
[2020-07-03] MEDS ORDERED: hydroCHLOROthiazide 25 MG TAB PO SCH (08:00)
[2020-07-03] MEDS ORDERED: SPIRONOLACTONE 25 MG TABLET PO SCH (08:00)
[2020-07-03] MEDS: HYDRALAZINE HCL 25 MG TABLET PO SCH ×3 (08:32→20:50)
[2020-07-03] MEDS: ENOXAPARIN 30 MG/0.3 ML SQ SCH (08:32)
[2020-07-03] MEDS: ISOSORBIDE MONO SR 30 MG TAB PO SCH (08:33)
[2020-07-03] MEDS: ASPIRIN EC 81 MG TAB PO SCH (10:15)
[2020-07-03] MEDS: CLOPIDOGREL 75 MG TABLET PO SCH (10:17)
[2020-07-03] MEDS: MAGNESIUM OXIDE 400 MG TAB PO SCH ×2 (10:17→20:50)
[2020-07-03] MEDS: CYANOCOBALAMIN 1,000 MCG TAB SL SCH (10:18)
--- NOTE | 2020-07-03 10:41 | RAD REPORT ---
EXAM DESCRIPTION: US - Abdomen Pelvis Scan US - 07/03/2020 10:27 am CLINICAL HISTORY: high blood pressure COMPARISON: No comparisons TECHNIQUE: Sonographic evaluation of the kidneys was performed with measurements obtained and gross anatomic assessment performed.Doppler evaluation of the renal arteries, interlobar arteries and aorta performed. Waveforms and velocities were recorded. The renal artery ratios and resistive index nav ues were calculated. FINDINGS: No hydronephrosis or suspicious mass of either kidney. Cortical thickness within normal ra nge. There is increased cortical echogenicity which can indicate underlying medical renal disease. Li mited bladder assessment shows no gross abnormality. Aorta and renal vascular assessment performed. No suspicious waveform pattern identifiable. Velocity values and resistive index values are in normal range. Renal artery ratios are well within normal ran ge measuring 1.1 on the right and 0.9 on the left. No other significant or suspicious findings. IMPRESSION: Normal renal artery ratios are seen. Findings do not suggest renal artery stenosis. Increased renal cortical echogenicity present. This can be seen with medical renal disease.
--- NOTE | 2020-07-03 12:03 | P.PN ---
Subjective Date of Service: 07/03/20 Chief Complaint: SP STROKE Subjective: New changes I SAW THIS AM THAT SHE WAS FULLY AWAKE AND EATING BREAKFAST. DAUGHTER AT BEDSIDE. SHE HAS NO CHEST PAIN. SHE STILL HAS WORD FINDING DIFFICULTY. THIS PM ABOUT 1 PM OR SO I WAS CALLED BY REHAB THAT SHE WAS LETHARGIC. SHE RECEIVED DOSE OF NARCAN AFTER I TALKED TO DR. MESA AND WOKE UP. THIS COULD BE LATE EFFECT OF NARCOTIC THAT NOW HAS BEEN DISCONTINUED. BP WENT UP THIS AM BEFORE MEDICINES. AFTER THE MEDS AND CHANGES IT IS DOWN TO 120/70. I SAW PATIENT THIS AM AND TALKED TO KEELEY LATER AT 10 ABOUT. SAW HER THIS AM SHE COULD NOT RECOGNIZE ME. SHE IS LETHARGIC SOMEHOW. SHE IS NOT GETTING ANY SEDATIVES. Physical Examination - Vital Signs Temperature: 97.4 F Blood Pressure: 119/62 Pulse: 56 Respirations: 16 Pulse Ox (%): 95 - Physical Exam General: Mild distress, Confused (NOT ORIENTED TODAY. NOT ABLE TO RESPOND WELL. CT BRAIN NEG YESTERDAY.) HEENT: Atraumatic, PERRLA, EOMI Neck: Supple, JVD not distended Respiratory: Clear to auscultation bilaterally, Normal air movement Cardiovascular: Regular rate/rhythm, Normal S1 S2 Gastrointestinal: Normal bowel sounds, No tenderness Musculoskeletal: No tenderness Integumentary: No rashes Neurological: Normal speech, Normal tone, Normal affect Lymphatics: No axilla or inguinal lymphadenopathy - Studies Laboratory Data (last 24 hrs) 07/03/20 05:56: WBC 5.9, Hgb 13.8, Hct 41.8, Plt Count 161 07/03/20 05:46: Sodium 143, Potassium 3.9, BUN 28 H, Creatinine 1.21, Glucose 136 H Microbiology Data (last 24 hrs): 06/30/20 21:45 Clean Catch Urine Mcandrews Count - Final <10,000 CFU/ML. 06/30/20 21:45 Clean Catch Urine - Final MIXED LEONA. Medications List Reviewed: Yes Assessment And Plan - Current Problems (Diagnosis) (1) Cerebral multi-infarct state Current Visit: No Status: Acute Plan: CONTINUE PT SHE WILL TAKE TIME TO RECOVER. RESUME PLAVIX DAILY. CLINICALLY STABLE. WILL ORDER MRI AND EEG IN AM. SHE SHOWS MORE LETHARGY. I TALKED TO DR. MESA. THIS CAN BE FROM ATYPICAL SEIZURES VS. ENCEPHALOPATHY RELATED TO BP . BP IS STABLE NOW. I AM HOPING TO SEE RECOVERY IN MENTATION IN A DAY OR TWO. STARTED KEPPRA EEG IN AM. (2) Diabetes Current Visit: No Status: Chronic Plan: A1C IS 7.1 LDL HAS BEEN CONTROLLED. CONTINUE MEDS. Qualifiers: Diabetes mellitus type: type 2 (3) HTN (hypertension) Current Visit: Yes Status: Chronic Plan: AFTER STROKE BP CAN GO HIGH AT TIMES. TODAY ONCE AGAIN IT DID. I ADDED CLONIDINE PRN AT Q2H, ADDED SPIRONOLACTONE. WILL WATCH K. ADDED HYDRALAZINE BP WAS 200 SYSTOLIC AND DID NOT COME DOWN AFTER ONE DOSE OF CLONIDINE.
[2020-07-03] MEDS: NACHLORIDE 0.45% 1,000 ML IV SCH (12:57)
[2020-07-03] MEDS: levETIRAcetam 500 MG TAB PO SCH ×2 (13:13→20:50)
[2020-07-03] MEDS: FAMOTIDINE 20 MG TAB PO SCH (20:50)
[2020-07-03 21:05] VITALS: TEMP 98.2
[2020-07-04] MEDS: NACHLORIDE 0.45% 1,000 ML IV SCH (01:03)
[2020-07-04] MEDS: carvediloL 12.5 MG TAB PO SCH (05:16)
[2020-07-04] MEDS: THYROID 30 MG TAB PO SCH (05:16)
[2020-07-04] MEDS: ENOXAPARIN 30 MG/0.3 ML SQ SCH (06:29)
[2020-07-04 07:17] VITALS: BP 135/56
[2020-07-04] MEDS: INSULIN -REGULAR HUMAN 50 UNIT/0.5 ML ML SQ SCH ×2 (07:30→11:30)
[2020-07-04] MEDS: INSULIN 70/30 100 UNITS/ML SQ SCH (07:30)
[2020-07-04] MEDS: ISOSORBIDE MONO SR 30 MG TAB PO SCH (08:00)
[2020-07-04] MEDS: CLOPIDOGREL 75 MG TABLET PO SCH (08:00)
[2020-07-04] MEDS: ASPIRIN EC 81 MG TAB PO SCH ×2 (08:00→09:39)
[2020-07-04] MEDS: levETIRAcetam 500 MG TAB PO SCH ×2 (08:00→09:40)
[2020-07-04] MEDS: CYANOCOBALAMIN 1,000 MCG TAB SL SCH ×2 (08:00→09:40)
[2020-07-04] MEDS: MAGNESIUM OXIDE 400 MG TAB PO SCH ×2 (08:00→09:40)
[2020-07-04] MEDS: LOSARTAN POTASSIUM 50 MG TABLET PO SCH ×2 (08:00→09:38)
[2020-07-04] MEDS: HYDRALAZINE HCL 25 MG TABLET PO SCH (09:00)
--- NOTE | 2020-07-05 13:02 | EEG ---
CHART: [id number] TEST ID#: [id number] DATE OF STUDY: 07/01/2020 THE EEG WAS RECORDED PORTABLE IN THE PATIENT'S ROOM ON A 17 CHANNEL MACHINE. ELECTRODES WERE APPLIED IN THE USUAL MANNER USING THE INTERNATIONAL 10-20 SYSTEM. THE WAKING BACKGROUND RHYTHM IN THIS RECORD CONSISTS OF FAIRLY WELL DEVELOPED AND FAIRLY WELL ORGANIZED WAVES OF 8.5 HZ., MAXIMAL IN THE POSTERIOR HEAD REGIONS WHICH ATTENUATE NORMALLY WITH EYE OPENING. MODERATE VOLTAGE 1.5-3 HZ ACTIVITY IS EXPRESSED IN THE FRONTAL REGIONS. LOW TO MODERATE VOLTAGE 4-5 HZ ARTIFACT IS DIFFUSELY EXPRESSED. THERE ARE NO FOCAL OR LATERALIZING FEATURES. NO EPILEPTIFORM ACTIVITY APPEARS. SLEEP DID NOT OCCUR. HYPERVENTILATION WAS NOT PERFORMED. PHOTIC STIMULATION PRODUCED NO DRIVING BILATERALLY. IMPRESSION: THIS IS A MODERATELY ABNORMAL ROUTINE EEG DUE TO A DIFFUSELY SLOW BACKGROUND. THIS IS A NON-SPECIFIC FINDING INDICATING THE PRESENCE OF A MODERATE DIFFUSE DISTURBANCE IN CEREBRAL ACTIVITY.
== END 2020-07-04 10:30 | disposition home or self-care (01) | DRG 65 ==
LOC: 5TH 15:38 → 2ND 07-04 10:27 → 5TH 07-04 10:28
PROVIDERS: ADMIT Internal Medicine; ATTEND Internal Medicine
DX: I63.81 Other cerebral infarction due to occlusion or stenosis of small artery (principal); G81.94 Hemiplegia, unspecified affecting left nondominant side; G81.91 Hemiplegia, unspecified affecting right dominant side; E11.9 Type 2 diabetes mellitus without complications; K21.9 Gastro-esophageal reflux disease without esophagitis; E78.5 Hyperlipidemia, unspecified; E03.9 Hypothyroidism, unspecified; I10 Essential (primary) hypertension; Z85.43 Personal history of malignant neoplasm of ovary; Z90.49 Acquired absence of other specified parts of digestive tract; Z90.710 Acquired absence of both cervix and uterus; Z88.8 Allergy status to other drugs, medicaments and biological substances; Z79.82 Long term (current) use of aspirin; Z79.02 Long term (current) use of antithrombotics/antiplatelets; Z79.899 Other long term (current) drug therapy; Z79.4 Long term (current) use of insulin; Z79.890 Hormone replacement therapy; Z20.828 Contact with and (suspected) exposure to other viral communicable diseases
CPT/HCPCS: 36415; 70450; 80048; 81001; 82040; 82805; 82947; 83735; 84134; 85025; 87086; 87088; 93005; 93975; 95819; 97110; 97161; 97530; J1650; J1815; J2270; J2310

== ENCOUNTER 2020-07-04 10:45 | Inpatient (IN) | payer OTHER, MEDICARE ==
[2020-07-04] MEDS ORDERED: GLUCAGON 1 MG/VIAL IM PRN (12:46)
[2020-07-04] MEDS ORDERED: D50W 25 GM/50 ML SYRINGE/VIAL IV PRN (12:46)
[2020-07-04] MEDS: NACHLORIDE 0.45% 1,000 ML IV SCH ×2 (13:00→13:26)
[2020-07-04] MEDS: HYDRALAZINE HCL 25 MG TABLET PO SCH ×2 (13:05→21:00)
[2020-07-04 13:20] VITALS: BMI 23.8
--- NOTE | 2020-07-04 13:24 | RAD REPORT ---
EXAM DESCRIPTION: MRI - Brain Wo Cont - 07/04/2020 12:50 pm CLINICAL HISTORY: lethargic Headache, drowsiness, CVA COMPARISON: Ct Stroke Brain Wo Cont dated 07/01/2020 TECHNIQUE: Multi-sequence, multiplanar MR imaging of the brain was performed without contrast. FINDINGS: No intracranial hemorrhage, hydrocephalus or extra-axial fluid collections.Mild generalize d brain atrophy with mild periventricular and deep white matter chronic microvascular ischemic change s. No edema or shift of midline structures. No findings to suspect brain mass. Nonhemorrhagic lacunar infarcts are seen in both basal ganglia without progression since prior study. No hemorrhage. Midline structures are normally formed. Mastoid air cells and paranasal sinuses are clear. IMPRESSION: No progression is seen in bilateral basal ganglia lacunar infarcts since the prior study .
[2020-07-04 14:08] LABS: Blood Gas Oxyhemoglobin 93.5 % (94-97); Blood O2 Saturation 95.3 % (92-98.5)
[2020-07-04 14:46] LABS: Absolute Lymphocytes (CBC) 1.6 K/uL (0.7-4.9); Basophils % 0.5 % (0-1.3); Hematocrit 47.8 % (36.0-45.0); Lymphocytes % 17.8 % (15.3-44.8); MPV 10.3 fL (7.6-11.3); RBC Red Blood Cell Count 5.54 M/uL (3.86-4.86)
[2020-07-04 15:07] LABS: Albumin 3.5 g/dL (3.4-5.0); Bilirubin Direct 0.2 mg/dL (0-0.2); Bilirubin Total 1.1 mg/dL (0.2-1.0); Potassium 4.2 mmol/L (3.5-5.1); Protein, Total 7.6 g/dL (6.4-8.2)
--- NOTE | 2020-07-04 16:05 | RAD REPORT ---
EXAM DESCRIPTION: RAD - Chest Single View - 07/04/2020 3:37 pm CLINICAL HISTORY: encephalopathy, uncontrolled HTN COMPARISON: Portable June 28 TECHNIQUE: AP portable chest image was obtained 07/04/2020 3:37 pm . FINDINGS: Lung volumes are low accentuating the baseline interstitial pattern. No peripheral mass or consolidation. No significant failure or volume overload. Lung parenchymal findings are not clearly different. Mediastinum is distorted by rotation. Heart and vasculature are normal. No measurable pleu ral effusion and no pneumothorax. No acute bony abnormality seen. No acute aortic findings suspected. IMPRESSION: No acute cardiopulmonary process. No significant change from comparison.
[2020-07-04] MEDS: INSULIN -REGULAR HUMAN 50 UNIT/0.5 ML ML SQ SCH ×2 (16:30→22:02)
[2020-07-04] MEDS: INSULIN 70/30 100 UNITS/ML SQ SCH (16:30)
[2020-07-04] MEDS: carvediloL 12.5 MG TAB PO SCH (17:45)
[2020-07-04] MEDS ORDERED: cloNIDine HCL 0.1 MG TAB PO PRN (20:47)
[2020-07-04] MEDS ORDERED: ACETAMINOPHEN 500 MG TAB PO PRN (20:47)
--- NOTE | 2020-07-04 20:57 | P.HP ---
Certification for Inpatient Patient admitted to: Inpatient With expected LOS: >2 Midnights Practitioner: I am a practitioner with admitting privileges, knowledge of patient current condition, hospital course, and medical plan of care. Services: Services provided to patient in accordance with Admission requirements found in Title 42 Section 412.3 of the Code of Federal Regulations Patient History Date of Service: 07/04/20 Reason for admission: SOMNOLENCE FROM BILATERAL STROKE History of Present Illness: MS CASTANEDA IS A DIABETIC WHO HAS A RARE BILATERAL BASAL GANGLIA STROKE THAT HAS GIVEN HER SEVERE SOMONOLENCE AND LETHARGY, SHE IS NOT ABLE TO DO PT. SHE IS NOW TRANSFERRED DOWN TO SECOND FLOOR SHE IS NOT ABLE TO STY ON REHAB PER MEDICARE REGULATIONS. Allergies terbinafine HCl [From Lamisil] Allergy (Severe, Verified 03/03/19 11:21) Hives iodine Allergy (Unknown, Verified 03/03/19 11:21) blisters, skin peeled Home Medications: Carvedilol [Coreg] 25 mg PO BID 06/28/20 Isosorbide Dinitrate 30 mg PO DAILY 06/28/20 Losartan Potassium 100 mg PO DAILY 06/28/20 Acetaminophen 500 mg PO Q6H PRN 06/30/20 Aspirin [Aspirin EC 81 MG] 81 mg PO DAILY 06/30/20 Clonidine HCl [Catapres] 0.1 mg PO Q4H PRN 06/30/20 Clopidogrel Bisulfate [Plavix] 75 mg PO DAILY 06/30/20 Famotidine [Pepcid] 20 mg PO 2100 06/30/20 Insulin 70/30 NPH/Reg Human [Novolin 70/30*] 15 unit SQ BIDAC 06/30/20 Thyroid 60 mg PO DAILY 07/01/20 - Past Medical/Surgical History Diabetic: Yes -: HTN. -: IDDM -: GERD -: Hypothryoidism -: Ovarian cancer -: OA of L knee -: Hypercholesterolemia -: L & R TKR -: Cholecystectomy -: Tonsillectomy -: Appendectomy -: Cancer polyp -: Hysterectomy -: Prolapsed Bladder sx - Family History Mother -: Heart disease, Diabetes Father -: Heart disease - Social History Smoking Status: Unknown if ever smoked Alcohol use: No CD- Drugs: No Caffeine use: Yes Review of Systems 10-point ROS is otherwise unremarkable General: Malaise Physical Examination - Vital Signs Temperature: 96.9 F Blood Pressure: 140/88 Pulse: 69 Respirations: 20 Pulse Ox (%): 95 - Physical Exam General: Mild distress, Moderate distress, Confused HEENT: Atraumatic, PERRLA, Mucous membr. moist/pink, EOMI, Sclerae nonicteric Neck: Supple, 2+ carotid pulse no bruit, No LAD, Without JVD or thyroid abnormality Respiratory: Clear to auscultation bilaterally, Normal air movement Cardiovascular: Regular rate/rhythm, Normal S1 S2 Gastrointestinal: Normal bowel sounds, No tenderness Musculoskeletal: No tenderness Integumentary: No rashes Neurological: Other (SEVERE SOMNOLENCE A SIDE EFFECT OF AMINATA. BASAL GANGLIA INFARCTS. NOT ABLE TO OTEHRWISE EXAMINE OTHER NEURO EXAM.) Lymphatics: No axilla or inguinal lymphadenopathy - Studies Laboratory Data (last 24 hrs) 07/04/20 14:32: Sodium 138, Potassium 4.2, BUN 26 H, Creatinine 1.38 H, Glucose 192 H, Total Bilirubin 1.1 H, AST 34, ALT 45, Alkaline Phosphatase 64 07/04/20 14:32: WBC 9.1 D, Hgb 15.6 H, Hct 47.8 H, Plt Count 187 Assessment and Plan - Problems (Diagnosis) (1) Basal ganglia infarction Current Visit: Yes Status: Acute Plan: BILATERAL. OBTUNDATION IS THE FEATURE OF. CONTINUE PLAVIX PO. SHE IS NOT ABLE TO EAT SAFELY. WILL KEEP HER NPO PLACE JESSICA TUBE START JEVITY. GET DIETARY CONSULT. ASPIRATION PRECAUTIONS. RESUME PLAVIX AND LOVENOX. (2) Diabetes Current Visit: No Status: Chronic Qualifiers: Diabetes mellitus type: type 2 (3) HTN (hypertension) Current Visit: No Status: Chronic Plan: ONCE AGAIN SHE IS NOT ABLE TO TAKE PO MEDS. WILL CYTOTECHNOLOGIST/HISTOTECHNOLOGIST TO IV UNTIL JESSICA CAN BE PLACED. Qualifiers: Hypertension type: essential hypertension Qualified Code(s): I10 - Essential (primary) hypertension - Advance Directives Does patient have a Living Will: Yes Does patient have a Durable POA for Healthcare: Yes
[2020-07-04] MEDS: MAGNESIUM OXIDE 400 MG TAB PO SCH (21:00)
[2020-07-04] MEDS ORDERED: carvediloL 25 MG TAB PO SCH (21:00)
[2020-07-04] MEDS ORDERED: NACHLORIDE 0.45% 1,000 ML IV SCH (21:00)
[2020-07-04] MEDS: FAMOTIDINE 20 MG TAB PO SCH (21:00)
[2020-07-04] MEDS: METOPROLOL TARTRATE 5 MG/5 ML INJ IV SCH (21:55)
[2020-07-04] MEDS: HYDRALAZINE HCL 20 MG/ML VIAL IV PRN (22:01)
[2020-07-05] MEDS: INSULIN -REGULAR HUMAN 50 UNIT/0.5 ML ML SQ SCH ×4 (00:50→18:00)
[2020-07-05] MEDS ORDERED: CLONIDINE 0.2 MG/PATCH TD ONE (03:00)
[2020-07-05] MEDS: METOPROLOL TARTRATE 5 MG/5 ML INJ IV SCH ×4 (03:30→18:28)
[2020-07-05] MEDS: THYROID 30 MG TAB PO SCH (05:05)
[2020-07-05] MEDS: carvediloL 12.5 MG TAB PO SCH ×2 (05:05→18:25)
[2020-07-05] MEDS: HYDRALAZINE HCL 20 MG/ML VIAL IV PRN (05:14)
[2020-07-05] MEDS ORDERED: THYROID 30 MG TAB PO SCH (06:00)
[2020-07-05] MEDS ORDERED: JEVITY 1.2 CAL LIQUID 1,000 ML BOT FT SCH (08:00)
[2020-07-05] MEDS ORDERED: ISOSORBIDE MONO SR 30 MG TAB PO SCH (09:00)
[2020-07-05] MEDS ORDERED: LOSARTAN POTASSIUM 50 MG TABLET PO SCH (09:00)
[2020-07-05] MEDS: INSULIN 70/30 100 UNITS/ML SQ SCH ×2 (09:20→16:41)
[2020-07-05] MEDS: HYDRALAZINE HCL 25 MG TABLET PO SCH ×3 (09:22→22:09)
[2020-07-05] MEDS: CYANOCOBALAMIN 1,000 MCG TAB SL SCH (09:22)
[2020-07-05] MEDS: LOSARTAN POTASSIUM 50 MG TABLET PO SCH (09:22)
[2020-07-05] MEDS: CLOPIDOGREL 75 MG TABLET PO SCH (09:22)
[2020-07-05] MEDS: MAGNESIUM OXIDE 400 MG TAB PO SCH ×2 (09:22→19:56)
[2020-07-05] MEDS: FAMOTIDINE 20 MG TAB PO SCH (09:22)
[2020-07-05] MEDS: ISOSORBIDE DINIT 20 MG TAB PO SCH (09:23)
[2020-07-05] MEDS: NACHLORIDE 0.45% 1,000 ML IV SCH ×2 (09:27→18:21)
--- NOTE | 2020-07-05 11:46 | P.PN ---
Subjective Date of Service: 07/05/20 Chief Complaint: SOMNOLENCE FROM BILATERAL STROKE Subjective: No new changes MS. CASTANEDA IS VERY SOMNOLENT AND DIFFICULT TO AROUSE. SHE HAS DOBHOFF FEEDING. Review of Systems is unable to be obtained Physical Examination - Vital Signs Temperature: 97.4 F Blood Pressure: 141/77 Pulse: 74 Respirations: 15 Pulse Ox (%): 96 - Physical Exam General: Mild distress, Other (VERY DIFFICULT TO AROUSE, OPENS EYES AND CLOSES QUICK. NOT FOLLOWING COMMAND.) HEENT: Atraumatic, PERRLA, EOMI Neck: Supple, JVD not distended Respiratory: Clear to auscultation bilaterally, Normal air movement Cardiovascular: Regular rate/rhythm, Normal S1 S2 Gastrointestinal: Normal bowel sounds, No tenderness Musculoskeletal: No tenderness Integumentary: No rashes Neurological: Normal speech, Normal tone, Normal affect Lymphatics: No axilla or inguinal lymphadenopathy - Studies Laboratory Data (last 24 hrs) 07/04/20 14:32: Sodium 138, Potassium 4.2, BUN 26 H, Creatinine 1.38 H, Glucose 192 H, Total Bilirubin 1.1 H, AST 34, ALT 45, Alkaline Phosphatase 64 07/04/20 14:32: WBC 9.1 D, Hgb 15.6 H, Hct 47.8 H, Plt Count 187 Medications List Reviewed: Yes Assessment And Plan - Current Problems (Diagnosis) (1) Basal ganglia infarction Current Visit: Yes Status: Acute Plan: BILATERAL. OBTUNDATION IS THE FEATURE OF. CONTINUE PLAVIX PO. SHE IS NOT ABLE TO EAT SAFELY. WILL KEEP HER NPO PLACE JESSICA TUBE START JEVITY. GET DIETARY CONSULT. ASPIRATION PRECAUTIONS. RESUME PLAVIX AND LOVENOX. UNUSAL BILATERAL STROKE WITH UNUSUAL PRESENTATION. MAY TAKE TWO MONTHS TO WAKE UP PER DR. SAUNDERS. CONTINUE DOBHOFF FEEDING. (2) Diabetes Current Visit: No Status: Chronic Qualifiers: Diabetes mellitus type: type 2 (3) HTN (hypertension) Current Visit: No Status: Chronic Plan: ONCE AGAIN SHE IS NOT ABLE TO TAKE PO MEDS. WILL ROCK CRUSHER OPERATOR TO IV UNTIL JESSICA CAN BE PLACED. Qualifiers: Hypertension type: essential hypertension Qualified Code(s): I10 - Essential (primary) hypertension
--- NOTE | 2020-07-05 14:40 | RAD REPORT ---
EXAM DESCRIPTION: RAD - Abdomen 1 View (KUB) - 07/05/2020 12:02 am CLINICAL HISTORY: 85-year-old female status post Dobbhoff placement. TECHNIQUE: Single supine view of the abdomen was obtained. COMPARISON: None. FINDINGS: Diffuse paucity of bowel gas with gas seen within normal caliber small and large bowel. No free air is identified, however limited by supine technique. Suspected bilateral renal ossifications. The osseous structures reveal degenerative change and lumbar spine S-shaped scoliosis. The lung bases are clear. Dobbhoff tube tip is identified at the level of the projection of the mid gastric body. IMPRESSION: 1. Nonspecific abdominal bowel gas pattern. 2. Dobbhoff tube tip is identified at the level of the projection of the mid gastric body. Electronically signed by: Chante Mendez MD 07/05/2020 12:22 AM DIRECT SUPPORT PROFESSIONAL Due to temporary technical issues with the PACS/Fluency reporting system, reports are being signed by the in house radiologists without review as a courtesy to insure prompt reporting. The interpreting radiologist is fully responsible for the content of the report.
[2020-07-05] MEDS: ENOXAPARIN 30 MG/0.3 ML SQ SCH (16:41)
[2020-07-05] MEDS ORDERED: ENOXAPARIN 40 MG/0.4 ML SQ SCH (17:00)
[2020-07-05] MEDS: GLUCERNA 1.2 CAL 1,000 ML BOT RTH SCH (22:25)
[2020-07-06] MEDS: METOPROLOL TARTRATE 5 MG/5 ML INJ IV SCH ×2 (00:29→06:30)
[2020-07-06] MEDS: NACHLORIDE 0.45% 1,000 ML IV SCH (03:00)
[2020-07-06] MEDS: THYROID 30 MG TAB PO SCH (05:12)
[2020-07-06] MEDS: carvediloL 12.5 MG TAB PO SCH ×2 (05:13→18:37)
[2020-07-06] MEDS: INSULIN -REGULAR HUMAN 50 UNIT/0.5 ML ML SQ SCH ×4 (06:23→18:00)
[2020-07-06] MEDS: HYDRALAZINE HCL 25 MG TABLET PO SCH ×3 (06:40→16:51)
[2020-07-06] MEDS: MAGNESIUM OXIDE 400 MG TAB PO SCH ×2 (09:00→20:16)
[2020-07-06] MEDS: FAMOTIDINE 20 MG TAB PO SCH (09:06)
[2020-07-06] MEDS: LOSARTAN POTASSIUM 50 MG TABLET PO SCH (09:06)
[2020-07-06] MEDS: ISOSORBIDE DINIT 20 MG TAB PO SCH (09:07)
[2020-07-06] MEDS: CYANOCOBALAMIN 1,000 MCG TAB SL SCH (09:07)
[2020-07-06] MEDS: INSULIN 70/30 100 UNITS/ML SQ SCH ×2 (09:08→16:50)
[2020-07-06] MEDS: CLOPIDOGREL 75 MG TABLET PO SCH (09:08)
[2020-07-06] MEDS: ENOXAPARIN 30 MG/0.3 ML SQ SCH (16:50)
--- NOTE | 2020-07-06 21:39 | P.PN ---
Subjective Date of Service: 07/06/20 Chief Complaint: SOMNOLENCE FROM BILATERAL STROKE Subjective: No new changes MS. CASTANEDA IS VERY SOMNOLENT AND DIFFICULT TO AROUSE. SHE HAS DOBHOFF FEEDING. STILL NOT ABLE TO WAKE UP IN MEANINGFUL WAY. Physical Examination - Vital Signs Temperature: 97.7 F Blood Pressure: 169/54 Pulse: 78 Respirations: 20 Pulse Ox (%): 96 - Physical Exam General: Moderate distress, Unresponsive HEENT: Atraumatic, PERRLA, EOMI Neck: Supple, JVD not distended Respiratory: Clear to auscultation bilaterally, Normal air movement Cardiovascular: Regular rate/rhythm, Normal S1 S2 Gastrointestinal: Normal bowel sounds, No tenderness Musculoskeletal: No tenderness Integumentary: No rashes Neurological: Normal affect Lymphatics: No axilla or inguinal lymphadenopathy - Studies Microbiology Data (last 24 hrs): 07/04/20 13:30 Nasopharnyx Coronavirus COVID-19 PCR - Final Medications List Reviewed: Yes Assessment And Plan - Current Problems (Diagnosis) (1) Basal ganglia infarction Current Visit: Yes Status: Acute Plan: BILATERAL. OBTUNDATION IS THE FEATURE OF. CONTINUE PLAVIX PO. SHE IS NOT ABLE TO EAT SAFELY. WILL KEEP HER NPO PLACE JESSICA TUBE START JEVITY. GET DIETARY CONSULT. ASPIRATION PRECAUTIONS. RESUME PLAVIX AND LOVENOX. UNUSAL BILATERAL STROKE WITH UNUSUAL PRESENTATION. MAY TAKE TWO MONTHS TO WAKE UP PER DR. SAUNDERS. CONTINUE DOBHOFF FEEDING. I SPOKE TO DR MEREDITH, HE CAN DO G TUBE ON OUTPATIENT BASIS. SHE WILL HAVE TO GET OFF PLAVIX FOR5 DAYS FOR G TUBE. (2) Diabetes Current Visit: No Status: Chronic Qualifiers: Diabetes mellitus type: type 2 (3) HTN (hypertension) Current Visit: No Status: Chronic Plan: ONCE AGAIN SHE IS NOT ABLE TO TAKE PO MEDS. WILL MYCOLOGIST TO IV UNTIL JESSICA CAN BE PLACED. Qualifiers: Hypertension type: essential hypertension Qualified Code(s): I10 - Essential (primary) hypertension
[2020-07-07] MEDS: HYDRALAZINE HCL 25 MG TABLET PO SCH ×3 (01:15→16:59)
[2020-07-07] MEDS: carvediloL 12.5 MG TAB PO SCH ×2 (05:49→17:00)
[2020-07-07] MEDS: THYROID 30 MG TAB PO SCH (05:49)
[2020-07-07] MEDS: INSULIN -REGULAR HUMAN 50 UNIT/0.5 ML ML SQ SCH ×4 (06:00→18:00)
[2020-07-07 06:58] LABS: Absolute Lymphocytes (CBC) 1.7 K/uL (0.7-4.9); Hematocrit 42.4 % (36.0-45.0); Lymphocytes % 19.5 % (15.3-44.8); MPV 10.3 fL (7.6-11.3); RBC Red Blood Cell Count 4.92 M/uL (3.86-4.86)
[2020-07-07 07:31] LABS: Potassium 4.2 mmol/L (3.5-5.1)
[2020-07-07] MEDS: INSULIN 70/30 100 UNITS/ML SQ SCH ×2 (09:27→17:01)
[2020-07-07] MEDS: LOSARTAN POTASSIUM 50 MG TABLET PO SCH (09:28)
[2020-07-07] MEDS: FAMOTIDINE 20 MG TAB PO SCH (09:28)
[2020-07-07] MEDS: MAGNESIUM OXIDE 400 MG TAB PO SCH ×2 (09:28→21:19)
[2020-07-07] MEDS: ISOSORBIDE DINIT 20 MG TAB PO SCH (09:28)
[2020-07-07] MEDS: CYANOCOBALAMIN 1,000 MCG TAB SL SCH (09:28)
[2020-07-07] MEDS: ENOXAPARIN 30 MG/0.3 ML SQ SCH (16:59)
--- NOTE | 2020-07-07 20:54 | P.PN ---
Subjective Date of Service: 07/07/20 Chief Complaint: SOMNOLENCE FROM BILATERAL STROKE MS. CASTANEDA IS VERY SOMNOLENT AND DIFFICULT TO AROUSE. SHE HAS DOBHOFF FEEDING. STILL NOT ABLE TO WAKE UP IN MEANINGFUL WAY. NO CHANGES. STILL NOT ABLE TO RESPOND IN ANY COGNITIVE MANNER. GOES TO SLEEP QUICKLY AFTER VERBAL COMMAND. Review of Systems is unable to be obtained Physical Examination - Vital Signs Temperature: 97.9 F Blood Pressure: 160/68 Pulse: 72 Respirations: 20 Pulse Ox (%): 91 - Physical Exam General: Unresponsive HEENT: Atraumatic, PERRLA, EOMI Neck: Supple, JVD not distended Respiratory: Clear to auscultation bilaterally, Normal air movement Cardiovascular: Regular rate/rhythm, Normal S1 S2 Gastrointestinal: Normal bowel sounds, No tenderness Musculoskeletal: No tenderness Integumentary: No rashes Lymphatics: No axilla or inguinal lymphadenopathy - Studies Laboratory Data (last 24 hrs) 07/07/20 06:48: Sodium 139, Potassium 4.2, BUN 39 H, Creatinine 1.78 H, Glucose 224 H 07/07/20 06:48: WBC 8.9, Hgb 13.7, Hct 42.4, Plt Count 188 Microbiology Data (last 24 hrs): 07/04/20 13:30 Nasopharnyx Coronavirus COVID-19 PCR - Final Medications List Reviewed: Yes Assessment And Plan - Current Problems (Diagnosis) (1) Basal ganglia infarction Current Visit: Yes Status: Acute Plan: BILATERAL. OBTUNDATION IS THE FEATURE OF. CONTINUE PLAVIX PO. SHE IS NOT ABLE TO EAT SAFELY. WILL KEEP HER NPO PLACE JESSICA TUBE START JEVITY. GET DIETARY CONSULT. ASPIRATION PRECAUTIONS. RESUME PLAVIX AND LOVENOX. UNUSAL BILATERAL STROKE WITH UNUSUAL PRESENTATION. MAY TAKE TWO MONTHS TO WAKE UP PER DR. SAUNDERS. CONTINUE DOBHOFF FEEDING. I SPOKE TO DR MEREDITH, HE CAN DO G TUBE ON OUTPATIENT BASIS. SHE WILL HAVE TO GET OFF PLAVIX FOR5 DAYS FOR G TUBE. STAYS UNRESPONSIVE. BILAT BASAL GANGLIA STROKE MAY HAVE POOR OUTCOME IF HER GENERAL CONDITION DOES NOT IMPROVE. SHE IS DNR PER FAMILY. WILL HAVE TO DO INPATIENT G TUBE [facility] WILL NOT TAKE HER WITH JESSICA. (2) Diabetes Current Visit: No Status: Chronic Qualifiers: Diabetes mellitus type: type 2 (3) HTN (hypertension) Current Visit: No Status: Chronic Plan: ONCE AGAIN SHE IS NOT ABLE TO TAKE PO MEDS. WILL HADOOP CONSULTANT TO IV UNTIL JESSICA CAN BE PLACED. Qualifiers: Hypertension type: essential hypertension Qualified Code(s): I10 - Essential (primary) hypertension
[2020-07-08] MEDS: HYDRALAZINE HCL 25 MG TABLET PO SCH ×3 (00:17→17:20)
[2020-07-08] MEDS: HYDRALAZINE HCL 20 MG/ML VIAL IV PRN (05:17)
[2020-07-08] MEDS: THYROID 30 MG TAB PO SCH (05:17)
[2020-07-08] MEDS: carvediloL 12.5 MG TAB PO SCH ×2 (05:17→17:20)
[2020-07-08] MEDS: INSULIN -REGULAR HUMAN 50 UNIT/0.5 ML ML SQ SCH ×4 (06:27→17:26)
[2020-07-08] MEDS: ISOSORBIDE DINIT 20 MG TAB PO SCH (09:00)
[2020-07-08] MEDS: INSULIN 70/30 100 UNITS/ML SQ SCH ×2 (09:30→17:19)
[2020-07-08] MEDS: CYANOCOBALAMIN 1,000 MCG TAB SL SCH (09:33)
[2020-07-08] MEDS: MAGNESIUM OXIDE 400 MG TAB PO SCH ×2 (09:33→20:03)
[2020-07-08] MEDS: FAMOTIDINE 20 MG TAB PO SCH (09:33)
[2020-07-08] MEDS: LOSARTAN POTASSIUM 50 MG TABLET PO SCH (09:33)
[2020-07-08] MEDS: GLUCERNA 1.2 CAL 1,000 ML BOT RTH SCH (14:59)
--- NOTE | 2020-07-08 16:20 | P.PN ---
Subjective Date of Service: 07/08/20 Chief Complaint: SOMNOLENCE FROM BILATERAL STROKE Subjective: No new changes MS. CASTANEDA IS VERY SOMNOLENT AND DIFFICULT TO AROUSE. SHE HAS DOBHOFF FEEDING. STILL NOT ABLE TO WAKE UP IN MEANINGFUL WAY. NO CHANGES. STILL NOT ABLE TO RESPOND IN ANY COGNITIVE MANNER. GOES TO SLEEP QUICKLY AFTER VERBAL COMMAND. SHE IS STILL VERY SOMNOLENT AND NOT ABLE TO WAKE UP MORE THAN TWO SECONDS Review of Systems is unable to be obtained Physical Examination - Vital Signs Temperature: 98.7 F Blood Pressure: 148/85 Pulse: 67 Respirations: 18 Pulse Ox (%): 94 - Physical Exam General: Unresponsive HEENT: Atraumatic, PERRLA, EOMI Neck: Supple, JVD not distended Respiratory: Clear to auscultation bilaterally, Normal air movement Cardiovascular: Regular rate/rhythm, Normal S1 S2 Gastrointestinal: Normal bowel sounds, No tenderness Musculoskeletal: No tenderness Integumentary: No rashes Neurological: Other (OPENS EYES ON VERBAL COMMAND BUT HAS NO LEGIBLE RESPONSE. MOVES ON PAINFUL STIMULUS.) Lymphatics: No axilla or inguinal lymphadenopathy - Studies Medications List Reviewed: Yes Assessment And Plan - Current Problems (Diagnosis) (1) Basal ganglia infarction Current Visit: Yes Status: Acute Plan: BILATERAL. OBTUNDATION IS THE FEATURE OF. CONTINUE PLAVIX PO. SHE IS NOT ABLE TO EAT SAFELY. WILL KEEP HER NPO PLACE JESSICA TUBE START JEVITY. GET DIETARY CONSULT. ASPIRATION PRECAUTIONS. RESUME PLAVIX AND LOVENOX. UNUSAL BILATERAL STROKE WITH UNUSUAL PRESENTATION. MAY TAKE TWO MONTHS TO WAKE UP PER DR. SAUNDERS. CONTINUE DOBHOFF FEEDING. I SPOKE TO DR MEREDITH, HE CAN DO G TUBE ON OUTPATIENT BASIS. SHE WILL HAVE TO GET OFF PLAVIX FOR5 DAYS FOR G TUBE. STAYS UNRESPONSIVE. BILAT BASAL GANGLIA STROKE MAY HAVE POOR OUTCOME IF HER GENERAL CONDITION DOES NOT IMPROVE. SHE IS DNR PER FAMILY. WILL HAVE TO DO INPATIENT G TUBE [facility] WILL NOT TAKE HER WITH JESSICA. I CALLED DR. MEREDITH TODAY TO GET G TUBE DONE BY SATURDAY DC TO [facility] AFTER. I AM NOT SURE SHE WILL WAKE UP FROM THIS STROKE. IT MIGHT BE WORTHWHILE TO BE ON HOSPICE IF FAMILY AGREES MEANWHILE. (2) Diabetes Current Visit: No Status: Chronic Qualifiers: Diabetes mellitus type: type 2 (3) HTN (hypertension) Current Visit: No Status: Chronic Plan: ONCE AGAIN SHE IS NOT ABLE TO TAKE PO MEDS. WILL RECEPTIONIST NURSE TO IV UNTIL JESSICA CAN BE PLACED. Qualifiers: Hypertension type: essential hypertension Qualified Code(s): I10 - Essential (primary) hypertension
[2020-07-08] MEDS: ENOXAPARIN 30 MG/0.3 ML SQ SCH (17:21)
--- NOTE | 2020-07-08 19:07 | P.PN ---
Subjective Date of Service: 07/08/20 Chief Complaint: SOMNOLENCE FROM RARE BILATERAL BASAL GANGLIA STROKE, DYSPHAGIA Subjective: No new changes (Plavix / ASA on hold 2 days now.) Review of Systems 10-point ROS is otherwise unremarkable General: Weakness, Malaise Neurological: Weakness, Incoordination (s/p dense stoke) Physical Examination - Vital Signs Temperature: 98.7 F Blood Pressure: 148/85 Pulse: 67 Respirations: 18 Pulse Ox (%): 94 - Physical Exam General: Alert, Disheveled HEENT: Atraumatic, Normocephalic, EOMI Neck: Supple Respiratory: Normal air movement Cardiovascular: Normal pulses Gastrointestinal: Soft and benign Neurological: Abnormal strength - Studies Medications List Reviewed: Yes Assessment And Plan - Current Problems (Diagnosis) (1) Dysphagia Current Visit: Yes Status: Acute (2) Basal ganglia infarction Current Visit: Yes Status: Acute (3) Altered mental status Current Visit: No Status: Acute - Plan REC: 1) continue to hold Plavix/ASA 2) will perform EGD with PEG placement Saturday
[2020-07-09] MEDS: HYDRALAZINE HCL 25 MG TABLET PO SCH ×4 (00:13→16:50)
[2020-07-09] MEDS: HYDRALAZINE HCL 20 MG/ML VIAL IV PRN ×2 (04:35→22:25)
[2020-07-09] MEDS: carvediloL 12.5 MG TAB PO SCH ×2 (05:51→16:51)
[2020-07-09] MEDS: THYROID 30 MG TAB PO SCH (05:51)
[2020-07-09] MEDS: INSULIN -REGULAR HUMAN 50 UNIT/0.5 ML ML SQ SCH ×4 (05:55→18:47)
[2020-07-09 06:57] LABS: Absolute Lymphocytes (CBC) 1.7 K/uL (0.7-4.9); Basophils % 0.9 % (0-1.3); Hematocrit 41.2 % (36.0-45.0); Lymphocytes % 18.6 % (15.3-44.8); MPV 10.6 fL (7.6-11.3); RBC Red Blood Cell Count 4.78 M/uL (3.86-4.86)
[2020-07-09 07:03] LABS: Potassium 4.6 mmol/L (3.5-5.1)
[2020-07-09] MEDS: INSULIN 70/30 100 UNITS/ML SQ SCH ×2 (07:30→16:52)
[2020-07-09] MEDS: CYANOCOBALAMIN 1,000 MCG TAB SL SCH (09:00)
[2020-07-09] MEDS: FAMOTIDINE 20 MG TAB PO SCH (09:00)
[2020-07-09] MEDS: MAGNESIUM OXIDE 400 MG TAB PO SCH ×2 (09:00→21:00)
[2020-07-09] MEDS: ISOSORBIDE DINIT 20 MG TAB PO SCH ×2 (09:00→11:53)
[2020-07-09] MEDS: LOSARTAN POTASSIUM 50 MG TABLET PO SCH ×2 (09:00→11:54)
[2020-07-09] MEDS ORDERED: cloNIDine HCL 0.1 MG TAB PO PRN (13:59)
--- NOTE | 2020-07-09 14:03 | P.PN ---
Subjective Date of Service: 07/09/20 Chief Complaint: WOKE UP TODAY Subjective: Improving SHE WOKE UP TODAY AFTER 7 DAYS OF TOTAL SLEEP. SHE FOLLOWED COMMANDS. Review of Systems is unable to be obtained Physical Examination - Vital Signs Temperature: 97 F Blood Pressure: 204/81 Pulse: 56 Respirations: 17 Pulse Ox (%): 93 - Physical Exam General: Cooperative, Mild distress HEENT: Atraumatic, PERRLA, EOMI Neck: Supple, JVD not distended Respiratory: Clear to auscultation bilaterally, Normal air movement Cardiovascular: Regular rate/rhythm, Normal S1 S2 Gastrointestinal: Normal bowel sounds, No tenderness Musculoskeletal: No tenderness Integumentary: No rashes Neurological: Abnormal strength (GEN WEAK ABOUT 3-4 OVER 5 DIFFUSE. FOLLOWING COMMANDS TO LIFT LIMBS.) Lymphatics: No axilla or inguinal lymphadenopathy - Studies Laboratory Data (last 24 hrs) 07/09/20 06:41: Sodium 138, Potassium 4.6, BUN 52 H, Creatinine 1.78 H, Glucose 256 H 07/09/20 06:41: WBC 9.0, Hgb 13.4, Hct 41.2, Plt Count 176 Medications List Reviewed: Yes Assessment And Plan - Current Problems (Diagnosis) (1) Basal ganglia infarction Current Visit: Yes Status: Acute Plan: BILATERAL. OBTUNDATION IS THE FEATURE OF. CONTINUE PLAVIX PO. SHE IS NOT ABLE TO EAT SAFELY. WILL KEEP HER NPO PLACE JESSICA TUBE START JEVITY. GET DIETARY CONSULT. ASPIRATION PRECAUTIONS. RESUME PLAVIX AND LOVENOX. SHE WOKE UP TODAY. UNUSAL CASE OF BILATERAL BASAL GANGLIA STROKES. REFER BACK TO REHAB AND SPEECH THERAPY. MAY BE ABLE TO HOLD OFF G TUBE. (2) Diabetes Current Visit: No Status: Chronic Qualifiers: Diabetes mellitus type: type 2 (3) HTN (hypertension) Current Visit: No Status: Chronic Plan: ONCE AGAIN SHE IS NOT ABLE TO TAKE PO MEDS. WILL TELLER SUPERVISOR TO IV UNTIL JESSICA CAN BE PLACED. MULTIPLE MEDS ALREADY. RAISE PRN CLONIDINE. Qualifiers: Hypertension type: essential hypertension Qualified Code(s): I10 - Essential (primary) hypertension
[2020-07-09] MEDS: ENOXAPARIN 30 MG/0.3 ML SQ SCH (16:54)
[2020-07-10] MEDS: HYDRALAZINE HCL 25 MG TABLET PO SCH ×3 (01:34→16:49)
[2020-07-10] MEDS: GLUCERNA 1.2 CAL 1,000 ML BOT RTH SCH ×2 (01:40→16:53)
[2020-07-10] MEDS: carvediloL 12.5 MG TAB PO SCH ×2 (05:36→16:49)
[2020-07-10] MEDS: THYROID 30 MG TAB PO SCH (05:37)
[2020-07-10] MEDS: INSULIN -REGULAR HUMAN 50 UNIT/0.5 ML ML SQ SCH ×4 (06:22→18:41)
[2020-07-10] MEDS: MAGNESIUM OXIDE 400 MG TAB PO SCH ×2 (09:01→20:45)
[2020-07-10] MEDS: CYANOCOBALAMIN 1,000 MCG TAB SL SCH (09:01)
[2020-07-10] MEDS: FAMOTIDINE 20 MG TAB PO SCH (09:01)
[2020-07-10] MEDS: ISOSORBIDE DINIT 20 MG TAB PO SCH (09:01)
[2020-07-10] MEDS: LOSARTAN POTASSIUM 50 MG TABLET PO SCH (09:01)
[2020-07-10] MEDS: INSULIN 70/30 100 UNITS/ML SQ SCH ×2 (09:01→16:50)
[2020-07-10] MEDS: ENOXAPARIN 30 MG/0.3 ML SQ SCH (09:10)
--- NOTE | 2020-07-10 12:40 | P.PN ---
Subjective Date of Service: 07/10/20 Chief Complaint: MORE SOMNOLENT TODAY SHE WOKE UP TODAY AFTER 7 DAYS OF TOTAL SLEEP. SHE FOLLOWED COMMANDS. SHE WAS QUITE AWAKE YESTERDAY BUT VERY SOMNOLENT TODAY. BACK TO HER USUAL STATUS. Review of Systems is unable to be obtained Physical Examination - Vital Signs Temperature: 97.2 F Blood Pressure: 155/67 Pulse: 69 Respirations: 16 Pulse Ox (%): 92 - Physical Exam General: Unresponsive HEENT: Atraumatic, PERRLA, EOMI Neck: Supple, JVD not distended Respiratory: Clear to auscultation bilaterally, Normal air movement Cardiovascular: Regular rate/rhythm, Normal S1 S2 Gastrointestinal: Normal bowel sounds, No tenderness Musculoskeletal: No tenderness Integumentary: No rashes Lymphatics: No axilla or inguinal lymphadenopathy - Studies Medications List Reviewed: Yes Assessment And Plan - Current Problems (Diagnosis) (1) Basal ganglia infarction Current Visit: Yes Status: Acute Plan: BILATERAL. OBTUNDATION IS THE FEATURE OF. CONTINUE PLAVIX PO. SHE IS NOT ABLE TO EAT SAFELY. WILL KEEP HER NPO PLACE JESSICA TUBE START JEVITY. GET DIETARY CONSULT. ASPIRATION PRECAUTIONS. RESUME PLAVIX AND LOVENOX. SHE WOKE UP TODAY. UNUSAL CASE OF BILATERAL BASAL GANGLIA STROKES. REFER BACK TO REHAB AND SPEECH THERAPY. MAY BE ABLE TO HOLD OFF G TUBE. G TUBE COMING WEEK. 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 (2) Diabetes Current Visit: No Status: Chronic Qualifiers: Diabetes mellitus type: type 2 (3) HTN (hypertension) Current Visit: No Status: Chronic Plan: ONCE AGAIN SHE IS NOT ABLE TO TAKE PO MEDS. WILL STOVE MOUNTER TO IV UNTIL JESSICA CAN BE PLACED. MULTIPLE MEDS ALREADY. RAISE PRN CLONIDINE. Qualifiers: Hypertension type: essential hypertension Qualified Code(s): I10 - Essential (primary) hypertension
--- NOTE | 2020-07-10 17:50 | P.PN ---
Subjective Date of Service: 07/10/20 Chief Complaint: RARE BILATERAL BASAL GANGLIA STROKE, DYSPHAGIA Subjective: No new changes Review of Systems 10-point ROS is otherwise unremarkable General: Weakness, Malaise Neurological: Weakness, As per HPI Physical Examination - Vital Signs Temperature: 97.7 F Blood Pressure: 178/74 Pulse: 63 Respirations: 16 Pulse Ox (%): 92 - Physical Exam General: Other (somnolent but arousable, answers some questions) HEENT: Atraumatic, Normocephalic, PERRLA, EOMI Neck: Supple Respiratory: Normal air movement Cardiovascular: Normal pulses Gastrointestinal: Soft and benign, No tenderness, No rebound, No guarding - Studies Medications List Reviewed: Yes Assessment And Plan - Current Problems (Diagnosis) (1) Dysphagia Current Visit: Yes Status: Acute (2) Basal ganglia infarction Current Visit: Yes Status: Acute (3) Altered mental status Current Visit: No Status: Acute - Plan REC: 1) continue to hold Plavix/ASA 2) will perform EGD with PEG placement Saturday 3) hold Lovenox
[2020-07-11] MEDS: HYDRALAZINE HCL 25 MG TABLET PO SCH ×3 (01:09→16:02)
[2020-07-11] MEDS: carvediloL 12.5 MG TAB PO SCH ×2 (05:02→17:09)
[2020-07-11] MEDS: THYROID 30 MG TAB PO SCH (05:03)
[2020-07-11] MEDS: INSULIN -REGULAR HUMAN 50 UNIT/0.5 ML ML SQ SCH ×4 (06:00→17:10)
[2020-07-11] MEDS: INSULIN 70/30 100 UNITS/ML SQ SCH ×2 (07:30→16:02)
[2020-07-11] MEDS ORDERED: CLONIDINE 0.2 MG/PATCH TD SCH (09:00)
[2020-07-11] MEDS: LOSARTAN POTASSIUM 50 MG TABLET PO SCH (09:01)
[2020-07-11] MEDS: FAMOTIDINE 20 MG TAB PO SCH (09:02)
[2020-07-11] MEDS: ISOSORBIDE DINIT 20 MG TAB PO SCH (09:02)
[2020-07-11] MEDS: MAGNESIUM OXIDE 400 MG TAB PO SCH ×2 (09:03→21:36)
[2020-07-11] MEDS: CYANOCOBALAMIN 1,000 MCG TAB SL SCH (09:03)
--- NOTE | 2020-07-11 15:15 | RAD REPORT ---
EXAM DESCRIPTION: RAD - Barium Swallow Modified - 07/11/2020 3:01 pm CLINICAL HISTORY: f/u swallow eval COMPARISON: None. TECHNIQUE: The patient was given liquid, semi-solid and solid forms of barium. Lateral view fluorosc opic imaging was performed in conjunction with speech pathology service. FINDINGS: Cineloop acquisitions: 19 Fluoro time: 4.51 minutes pharyngeal residue vallecular mod with solids 2' NG tube barium tablet got held up in valleculae and UES requiring a bite of pudding to clear, likely due to r educed pharyngeal space from NG tube IMPRESSION: Modified barium swallow as summarized above and fully detailed on speech pathology repor t.
--- NOTE | 2020-07-11 18:00 | P.PN ---
Subjective Date of Service: 07/11/20 Chief Complaint: RARE BILATERAL BASAL GANGLIA STROKE, DYSPHAGIA Subjective: Improving SHE WOKE UP TODAY AFTER 7 DAYS OF TOTAL SLEEP. SHE FOLLOWED COMMANDS. SHE WAS QUITE AWAKE YESTERDAY BUT VERY SOMNOLENT TODAY. BACK TO HER USUAL STATUS. SHE IS MUCH MORE AWAKE TODAY. I HAD SPEECH THERAPY EVALUATE, CANCEL G TUBE SHE MAY BE ABLE TO EAT. ST CALLED LATER AND SAID SWALLOWING IS GOOD. Review of Systems 10-point ROS is otherwise unremarkable Physical Examination - Vital Signs Temperature: 97.8 F Blood Pressure: 127/60 Pulse: 63 Respirations: 18 Pulse Ox (%): 91 - Physical Exam General: Oriented x2, Mild distress, Moderate distress HEENT: Atraumatic, PERRLA, EOMI Neck: Supple, JVD not distended Respiratory: Clear to auscultation bilaterally, Normal air movement Cardiovascular: Regular rate/rhythm, Normal S1 S2 Gastrointestinal: Normal bowel sounds, No tenderness Musculoskeletal: No tenderness Integumentary: No rashes Neurological: Normal speech, Normal tone, Normal affect Lymphatics: No axilla or inguinal lymphadenopathy - Studies Medications List Reviewed: Yes Assessment And Plan - Current Problems (Diagnosis) (1) Basal ganglia infarction Current Visit: Yes Status: Acute Plan: BILATERAL. OBTUNDATION IS THE FEATURE OF. CONTINUE PLAVIX PO. SHE IS NOT ABLE TO EAT SAFELY. WILL KEEP HER NPO PLACE JESSICA TUBE START JEVITY. GET DIETARY CONSULT. ASPIRATION PRECAUTIONS. RESUME PLAVIX AND LOVENOX. SHE WOKE UP TODAY. UNUSAL CASE OF BILATERAL BASAL GANGLIA STROKES. REFER BACK TO REHAB AND SPEECH THERAPY. MAY BE ABLE TO HOLD OFF G TUBE. G TUBE COMING WEEK. 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 GREAT RECOVERY ALL OF A SUDDEN START FEEDING. START PT REHAB OR NH (2) Diabetes Current Visit: No Status: Chronic Qualifiers: Diabetes mellitus type: type 2 (3) HTN (hypertension) Current Visit: No Status: Chronic Plan: ONCE AGAIN SHE IS NOT ABLE TO TAKE PO MEDS. WILL BAG WASHER TO IV UNTIL JESSICA CAN BE PLACED. MULTIPLE MEDS ALREADY. RAISE PRN CLONIDINE. Qualifiers: Hypertension type: essential hypertension Qualified Code(s): I10 - Essential (primary) hypertension
[2020-07-12] MEDS: HYDRALAZINE HCL 25 MG TABLET PO SCH ×3 (00:21→16:39)
[2020-07-12] MEDS: GLUCERNA 1.2 CAL 1,000 ML BOT RTH SCH (00:22)
[2020-07-12] MEDS: THYROID 30 MG TAB PO SCH (05:10)
[2020-07-12] MEDS: carvediloL 12.5 MG TAB PO SCH ×2 (05:10→17:10)
[2020-07-12] MEDS: INSULIN -REGULAR HUMAN 50 UNIT/0.5 ML ML SQ SCH ×4 (05:35→17:11)
[2020-07-12] MEDS: INSULIN 70/30 100 UNITS/ML SQ SCH ×2 (08:38→16:38)
[2020-07-12] MEDS: ISOSORBIDE DINIT 20 MG TAB PO SCH (08:39)
[2020-07-12] MEDS: FAMOTIDINE 20 MG TAB PO SCH (08:39)
[2020-07-12] MEDS: CLOPIDOGREL 75 MG TABLET PO SCH (08:41)
[2020-07-12] MEDS: CYANOCOBALAMIN 1,000 MCG TAB SL SCH (08:41)
[2020-07-12] MEDS: MAGNESIUM OXIDE 400 MG TAB PO SCH ×2 (08:41→20:26)
[2020-07-12] MEDS: LOSARTAN POTASSIUM 50 MG TABLET PO SCH (08:42)
[2020-07-12] MEDS ORDERED: CLONIDINE 0.2 MG/PATCH TD SCH (09:00)
[2020-07-12] MEDS: ENOXAPARIN 30 MG/0.3 ML SQ SCH (16:40)
--- NOTE | 2020-07-12 20:38 | P.PN ---
Subjective Date of Service: 07/12/20 Chief Complaint: RARE BILATERAL BASAL GANGLIA STROKE, DYSPHAGIA SHE WOKE UP TODAY AFTER 7 DAYS OF TOTAL SLEEP. SHE FOLLOWED COMMANDS. SHE WAS QUITE AWAKE YESTERDAY BUT VERY SOMNOLENT TODAY. BACK TO HER USUAL STATUS. SHE IS MUCH MORE AWAKE TODAY. I HAD SPEECH THERAPY EVALUATE, CANCEL G TUBE SHE MAY BE ABLE TO EAT. ST CALLED LATER AND SAID SWALLOWING IS GOOD. SHE IS MUCH MORE AWAKE. SHE WAS ON STATIN BEFORE BUT SOMEHOW SHE HAD QUIT. Review of Systems 10-point ROS is otherwise unremarkable Physical Examination - Vital Signs Temperature: 96.9 F Blood Pressure: 138/69 Pulse: 61 Respirations: 17 Pulse Ox (%): 93 - Physical Exam General: Alert, Oriented x3, Oriented x2, Mild distress HEENT: Atraumatic, PERRLA, EOMI Neck: Supple, JVD not distended Respiratory: Clear to auscultation bilaterally, Normal air movement Cardiovascular: Regular rate/rhythm, Normal S1 S2 Gastrointestinal: Normal bowel sounds, No tenderness Musculoskeletal: No tenderness Integumentary: No rashes Neurological: Normal speech, Normal tone, Normal affect Lymphatics: No axilla or inguinal lymphadenopathy - Studies Medications List Reviewed: Yes Assessment And Plan - Current Problems (Diagnosis) (1) Basal ganglia infarction Current Visit: Yes Status: Acute Plan: BILATERAL. OBTUNDATION IS THE FEATURE OF. CONTINUE PLAVIX PO. SHE IS NOT ABLE TO EAT SAFELY. WILL KEEP HER NPO PLACE JESSICA TUBE START JEVITY. GET DIETARY CONSULT. ASPIRATION PRECAUTIONS. RESUME PLAVIX AND LOVENOX. SHE WOKE UP TODAY. UNUSAL CASE OF BILATERAL BASAL GANGLIA STROKES. REFER BACK TO REHAB AND SPEECH THERAPY. MAY BE ABLE TO HOLD OFF G TUBE. G TUBE COMING WEEK. 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 GREAT RECOVERY ALL OF A SUDDEN START FEEDING. START PT REHAB OR NH HER SP. THERAPY STUDY IS NORMAL NOW. WILL REMOVE DOBHOFF AND START FEEDING HER. (2) Diabetes Current Visit: No Status: Chronic Qualifiers: Diabetes mellitus type: type 2 (3) HTN (hypertension) Current Visit: No Status: Chronic Plan: ONCE AGAIN SHE IS NOT ABLE TO TAKE PO MEDS. WILL CORPORATE EXECUTIVE CHEF TO IV UNTIL JESSICA CAN BE PLACED. MULTIPLE MEDS ALREADY. RAISE PRN CLONIDINE. Qualifiers: Hypertension type: essential hypertension Qualified Code(s): I10 - Essential (primary) hypertension
[2020-07-12] MEDS: ATORVASTATIN 40 MG TAB PO SCH (20:55)
[2020-07-12 21:20] LABS: HDL Cholesterol 38 mg/dL (40-60); LDL, Direct 79 mg/dL (100-129)
[2020-07-13] MEDS: HYDRALAZINE HCL 25 MG TABLET PO SCH ×3 (00:58→15:50)
[2020-07-13 05:31] LABS: Absolute Lymphocytes (CBC) 1.9 K/uL (0.7-4.9); Basophils % 0.9 % (0-1.3); Hematocrit 39.1 % (36.0-45.0); Lymphocytes % 26.3 % (15.3-44.8); MPV 11.2 fL (7.6-11.3); RBC Red Blood Cell Count 4.55 M/uL (3.86-4.86)
[2020-07-13 05:46] LABS: Potassium 4.2 mmol/L (3.5-5.1)
[2020-07-13] MEDS: THYROID 30 MG TAB PO SCH (05:47)
[2020-07-13] MEDS: carvediloL 12.5 MG TAB PO SCH ×2 (05:47→17:45)
[2020-07-13] MEDS: INSULIN -REGULAR HUMAN 50 UNIT/0.5 ML ML SQ SCH ×5 (06:00→20:35)
[2020-07-13] MEDS: NACHLORIDE 0.45% 1,000 ML IV SCH ×2 (06:42→17:52)
[2020-07-13] MEDS: INSULIN 70/30 100 UNITS/ML SQ SCH ×2 (07:30→17:46)
[2020-07-13 09:28] VITALS: O2SAT 94
[2020-07-13] MEDS: ISOSORBIDE DINIT 20 MG TAB PO SCH (10:35)
[2020-07-13] MEDS: CLOPIDOGREL 75 MG TABLET PO SCH (10:35)
[2020-07-13] MEDS: MAGNESIUM OXIDE 400 MG TAB PO SCH ×2 (10:35→20:38)
[2020-07-13] MEDS: CYANOCOBALAMIN 1,000 MCG TAB SL SCH (10:35)
--- NOTE | 2020-07-13 12:10 | RAD REPORT ---
EXAM DESCRIPTION: US - Abdomen Exam Complete - 07/13/2020 10:36 am CLINICAL HISTORY: Abdominal pain. CKD, CHECK FOR RETENTION OF URINE ALSO COMPARISON: Renal Ultrasound-Complete dated 03/26/2017; Barium Swallow Modified dated 07/11/2020; Abdo men 1 View (KUB) dated 07/04/2020; ABDOMINAL EXAM COMPLETE dated 12/23/2013 FINDINGS: The liver is normal in size, shape and echotexture. No focal liver lesions or intrahepatic biliary dilatation is seen. Cholecystectomy. Common bile duct is normal in caliber measuring 6 mm. Both kidneys are mildly reduced in size with cortical thinning. No hydronephrosis, focal lesion of co ncern or perinephric fluid. The spleen is normal in size measuring 8 cm. The pancreas and aorta are obscured by bowel gas. The visualized aspects of the IVC are grossly normal. IMPRESSION: Mildly atrophic kidneys with cortical thinning. No hydronephrosis. Cholecystectomy.
--- NOTE | 2020-07-13 12:11 | RAD REPORT ---
EXAM DESCRIPTION: US - Urinary Bladder - 07/13/2020 10:35 am CLINICAL HISTORY: CHECK FOR RETENTION Pelvic pain. COMPARISON: Liver Only dated 12/27/2017 TECHNIQUE: Real-time sonographic evaluation of the urinary bladder with pre and postvoid volume alvarado urements was performed. FINDINGS: No urinary bladder mass or ureterocele seen. Prevoid bladder volume was 170 mL. Postvoid b ladder volume was 146 mL, although the patient had difficulty with understanding the command to urina te. IMPRESSION: Moderate postvoid residual is present. The patient had difficulty with understanding the command to urinate and thus accuracy of this PVR measurement is unclear.
--- NOTE | 2020-07-13 12:28 | P.PN ---
Subjective Date of Service: 07/13/20 Chief Complaint: RARE BILATERAL BASAL GANGLIA STROKE, DYSPHAGIA Subjective: Improving (Increased mental status noted with repeat speech therapy swallow study negative. P.o. feedings started.) Review of Systems General: Weakness (Improved), Malaise (Improved) Neurological: Weakness (Improved) Physical Examination - Vital Signs Temperature: 96.4 F Blood Pressure: 157/64 Pulse: 59 Respirations: 15 Pulse Ox (%): 94 - Studies Laboratory Data (last 24 hrs) 07/13/20 05:09: Sodium 136, Potassium 4.2, BUN 73 H D, Creatinine 2.47 H, Glucose 155 H 07/13/20 05:09: WBC 7.3 D, Hgb 12.9, Hct 39.1, Plt Count 191 07/12/20 20:50: Triglycerides 119, Cholesterol 138, LDL Cholesterol Direct 79 L, HDL Cholesterol 38 L, Cholesterol/HDL Ratio 3.63 Medications List Reviewed: Yes Assessment And Plan - Current Problems (Diagnosis) (1) Dysphagia Current Visit: Yes Status: Acute (2) Basal ganglia infarction Current Visit: Yes Status: Acute (3) Altered mental status Current Visit: No Status: Acute - Plan REC: 1) continue ADA diet 2) cancel previously planned EGD with PEG placement 3) continue Lovenox and Plavix
[2020-07-13] MEDS: ENOXAPARIN 30 MG/0.3 ML SQ SCH (15:50)
--- NOTE | 2020-07-13 18:01 | P.PN ---
Subjective Date of Service: 07/13/20 Chief Complaint: RARE BILATERAL BASAL GANGLIA STROKE, DYSPHAGIA Subjective: Improving SHE WOKE UP TODAY AFTER 7 DAYS OF TOTAL SLEEP. SHE FOLLOWED COMMANDS. SHE WAS QUITE AWAKE YESTERDAY BUT VERY SOMNOLENT TODAY. BACK TO HER USUAL STATUS. SHE IS MUCH MORE AWAKE TODAY. I HAD SPEECH THERAPY EVALUATE, CANCEL G TUBE SHE MAY BE ABLE TO EAT. ST CALLED LATER AND SAID SWALLOWING IS GOOD. SHE IS MUCH MORE AWAKE. SHE WAS ON STATIN BEFORE BUT SOMEHOW SHE HAD QUIT. SHE IS AWKE AND RESPONDING WELL. Review of Systems 10-point ROS is otherwise unremarkable Physical Examination - Vital Signs Temperature: 96.7 F Blood Pressure: 155/71 Pulse: 62 Respirations: 15 Pulse Ox (%): 94 - Physical Exam General: Alert, In no apparent distress HEENT: Atraumatic, PERRLA, EOMI Neck: Supple, JVD not distended Respiratory: Clear to auscultation bilaterally, Normal air movement Cardiovascular: Regular rate/rhythm, Normal S1 S2 Gastrointestinal: Normal bowel sounds, No tenderness Musculoskeletal: No tenderness Integumentary: No rashes Neurological: Normal speech, Normal tone, Normal affect, Other (NOT ABLE TO WATCH TV BUT WAS ABLE TO TELL MY FINGERS IN FRONT OF EYES ABOUT 3 FEET. ) Lymphatics: No axilla or inguinal lymphadenopathy - Studies Laboratory Data (last 24 hrs) 07/13/20 05:09: Sodium 136, Potassium 4.2, BUN 73 H D, Creatinine 2.47 H, Glucose 155 H 07/13/20 05:09: WBC 7.3 D, Hgb 12.9, Hct 39.1, Plt Count 191 07/12/20 20:50: Triglycerides 119, Cholesterol 138, LDL Cholesterol Direct 79 L, HDL Cholesterol 38 L, Cholesterol/HDL Ratio 3.63 Medications List Reviewed: Yes Assessment And Plan - Current Problems (Diagnosis) (1) Basal ganglia infarction Current Visit: Yes Status: Acute Plan: BILATERAL. OBTUNDATION IS THE FEATURE OF. CONTINUE PLAVIX PO. SHE IS NOT ABLE TO EAT SAFELY. WILL KEEP HER NPO PLACE JESSICA TUBE START JEVITY. GET DIETARY CONSULT. ASPIRATION PRECAUTIONS. RESUME PLAVIX AND LOVENOX. SHE WOKE UP TODAY. UNUSAL CASE OF BILATERAL BASAL GANGLIA STROKES. REFER BACK TO REHAB AND SPEECH THERAPY. MAY BE ABLE TO HOLD OFF G TUBE. G TUBE COMING WEEK. 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 [employer] ALL OF A SUDDEN START FEEDING. START PT REHAB OR NH HER SP. THERAPY STUDY IS NORMAL NOW. WILL REMOVE DOBHOFF AND START FEEDING HER. (2) Diabetes Current Visit: No Status: Chronic Qualifiers: Diabetes mellitus type: type 2 (3) HTN (hypertension) Current Visit: No Status: Chronic Plan: ONCE AGAIN SHE IS NOT ABLE TO TAKE PO MEDS. WILL SENIOR MARKETING DATA ANALYST TO IV UNTIL JESSICA CAN BE PLACED. MULTIPLE MEDS ALREADY. RAISE PRN CLONIDINE. Qualifiers: Hypertension type: essential hypertension Qualified Code(s): I10 - Essential (primary) hypertension (4) Dehydration Current Visit: Yes Status: Acute Plan: IV FLUIDS STARTED PVR MAY BE THERE BUT TEMPORARY. FU LAB IN AM BEFORE DC.
[2020-07-13] MEDS: ATORVASTATIN 40 MG TAB PO SCH (20:38)
[2020-07-14] MEDS: HYDRALAZINE HCL 25 MG TABLET PO SCH ×2 (00:21→09:12)
[2020-07-14] MEDS: NACHLORIDE 0.45% 1,000 ML IV SCH (04:44)
[2020-07-14] MEDS: THYROID 30 MG TAB PO SCH (05:08)
[2020-07-14] MEDS: carvediloL 12.5 MG TAB PO SCH (05:09)
[2020-07-14 06:21] LABS: Lymphocytes % 27.5 % (15.3-44.8); RBC Red Blood Cell Count 4.65 M/uL (3.86-4.86)
[2020-07-14] MEDS: INSULIN 70/30 100 UNITS/ML SQ SCH (07:30)
[2020-07-14] MEDS: INSULIN -REGULAR HUMAN 50 UNIT/0.5 ML ML SQ SCH (07:30)
[2020-07-14 08:37] VITALS: BP 175/66; TEMP 97
[2020-07-14] MEDS: MAGNESIUM OXIDE 400 MG TAB PO SCH (09:12)
[2020-07-14] MEDS: CLOPIDOGREL 75 MG TABLET PO SCH (09:12)
[2020-07-14] MEDS: CYANOCOBALAMIN 1,000 MCG TAB SL SCH (09:12)
[2020-07-14] MEDS: ISOSORBIDE DINIT 20 MG TAB PO SCH (09:15)
== END 2020-07-14 10:54 | DRG 64 ==
LOC: 2ND 10:45
PROVIDERS: ADMIT Internal Medicine; ATTEND Internal Medicine
DX: I63.89 Other cerebral infarction (principal); R53.2 Functional quadriplegia; E11.9 Type 2 diabetes mellitus without complications; E86.0 Dehydration; E03.9 Hypothyroidism, unspecified; K21.9 Gastro-esophageal reflux disease without esophagitis; I10 Essential (primary) hypertension; R13.10 Dysphagia, unspecified; Z88.8 Allergy status to other drugs, medicaments and biological substances; Z79.82 Long term (current) use of aspirin; Z66 Do not resuscitate; Z79.02 Long term (current) use of antithrombotics/antiplatelets; Z79.4 Long term (current) use of insulin; Z85.43 Personal history of malignant neoplasm of ovary; Z90.49 Acquired absence of other specified parts of digestive tract; Z90.710 Acquired absence of both cervix and uterus; Z20.828 Contact with and (suspected) exposure to other viral communicable diseases
CPT/HCPCS: 36415; 70551; 71045; 74018; 74230; 76700; 76857; 80048; 80061; 80076; 82140; 82805; 82947; 85025; 92610; 92611; 97112; 97161; 97530; J0360; J1650; J1815; U0002